=== PATIENT | male | born 1950 | race Caucasian/White ===

== ENCOUNTER 2019-09-22 03:48 | Inpatient (IN) | payer MEDICARE ==
[2019-09-22] MEDS ORDERED: Dextrose 50% Abboject 50 ML SYRINGE SLOW IVP PRN (05:23)
[2019-09-22] MEDS ORDERED: HumaLOG 300 UNITS/3 ML VIAL SC PRN ×2 (05:23)
[2019-09-22] MEDS ORDERED: Guaifenesin DM 100-10/5 ML UDCUP PO PRN (05:23)
[2019-09-22] MEDS ORDERED: Dextrose 5% in Water 1,000 ML IV PRN (05:23)
[2019-09-22] MEDS ORDERED: Acetaminophen 325 MG TAB PO PRN (05:23)
[2019-09-22] MEDS ORDERED: Ondansetron PF 4 MG/2 ML Vial IVP PRN (06:13)
[2019-09-22] MEDS ORDERED: Ondansetron ODT 4 MG TAB PO PRN (06:13)
[2019-09-22] MEDS: Sodium Chloride 0.9% 1,000 ML IV SCH ×2 (06:42→18:19)
--- NOTE | 2019-09-22 06:49 | HP ---
REASON FOR ADMISSION: Rectal bleed. HISTORY OF PRESENTING ILLNESS: The patient gives history of having nearly 5 times of cristian bleeding from rectum at home. The first one was a large amount, but the subsequent ones were very small amounts. This happened around 6:30 p.m. He finally made it to [facility], where he had another small amount of bleed and another 2 more times on arrival here at [facility]. The patient has not had any prior colonoscopy. No history of prior bleeding or peptic ulcer. He has known history of hemorrhoids. No complaints of abdominal pain, nausea, or vomiting. He has been ambulating here on the floor. No complaints of chest pain, palpitation, or fever. No exposure to coronavirus as far as he knows. PAST MEDICAL AND SURGICAL HISTORY: History of CABG done 5 years back for three-vessel disease. He has had a stent put in a year later. History of chronic atrial fibrillation on Xarelto, history of ischemic cardiomyopathy with EF of around 40%, dyslipidemia, and hypertension. CURRENT MEDICATIONS: The patient is on: 1. Amiodarone 200 mg p.o. daily. 2. Xarelto 20 mg daily. 3. Lipitor 80 mg p.o. at bedtime. 4. Carvedilol 3.125 mg twice daily. 5. Fenofibrate 160 mg daily. 6. Lasix 40 mg daily. 7. Lisinopril 5 mg daily. 8. Aspirin 81 mg daily. 9. Metformin 500 mg twice daily. 10. Gabapentin 300 mg twice daily. ALLERGIES: NO KNOWN DRUG ALLERGIES. PERSONAL HISTORY: Does not abuse alcohol or drugs. No history of smoking. FAMILY HISTORY: Mother in her 80s from natural causes. Father at the age of 56, he had cancer in his humerus from unknown primary. CODE STATUS: Full. Power of workers compensation attorney is his sister. REVIEW OF SYSTEMS: CONSTITUTIONAL: Negative for weight loss or gain, ability to conduct usual activities. SKIN: Negative for rash, itching. EYES: Negative for double vision, pain. ENT/MOUTH: Negative for nose bleeding, neck stiffness, pain, tenderness. CARDIOVASCULAR: Negative for palpitations, dyspnea on exertion, orthopnea. RESPIRATORY: Negative for shortness of breath, wheezing, cough, hemoptysis, fever or night sweats. GASTROINTESTINAL: Negative for poor appetite, abdominal pain, heartburn, nausea , vomiting, constipation, or diarrhea. GENITOURINARY: Negative for urgency, frequency, dysuria, nocturia. MUSCULOSKELETAL: Negative for pain, swelling. NEUROLOGIC/PSYCHIATRIC: Negative for anxiety, depression. ALLERGY/IMMUNOLOGIC: Negative for skin rash, bleeding tendency. PHYSICAL EXAMINATION: GENERAL: The patient is a 68-year-old male, who is currently not in any acute distress. VITAL SIGNS: Blood pressure 118/86, pulse 90 per minute, respiratory rate 20 per minute, temperature 98.9 degrees Fahrenheit, and saturating 98% on room air. NECK: Supple. No elevated JVD. HEENT: Eyes; extraocular muscles intact. Pupils reacting to light. Oral cavity, mucous membranes are dry. No exudates or congestion. CARDIOVASCULAR SYSTEM: S1 and S2 heard. Regular rhythm. RESPIRATORY SYSTEM: Air entry 1+ bilateral. No rales or rhonchi. ABDOMEN: Soft. Bowel sounds heard. No tenderness, rigidity, or guarding. EXTREMITIES: No peripheral edema or calf tenderness. VASCULAR SYSTEM: Peripheral pulses 1+ bilateral. No ischemic ulcerations or gangrene. CENTRAL NERVOUS SYSTEM: No gross focal deficits noted. The patient is alert, awake, and oriented well. PSYCHIATRIC SYSTEM: The patient's mood is euthymic. No hallucinations or delusions. LABORATORY DATA: White count of 9, hemoglobin and hematocrit of 10 and 36, MCV is 89, platelet count 247 with 63% neutrophils, 20% lymphocytes. PT and INR of 16.4 and 1.3. Serum bicarb 26, BUN 31, creatinine 1.5, and serum glucose 123. Liver enzymes are within normal limits. Albumin is 4.6. CLINICAL IMPRESSION AND PLAN: The patient will be admitted to medical floor for gastrointestinal bleed with cristian rectal bleeding. He has not had prior colonoscopy. No abdominal pain as such. It is unclear if this is diverticular bleeding. He also has history of ischemic cardiomyopathy with EF of around 40% , but has no current abdominal pain as such. He will be kept n.p.o. We will obtain H and H q.6 hourly x4. We will gently hydrate him with normal saline 70 mL per hour. Mr. Yanez will be transfused if his hemoglobin drops less than 7 g. We will obtain consultation with Dr. Sanchez, who is on-call for GI. We will hold the Xarelto for now. We will continue amiodarone, Lipitor, carvedilol, TriCor, and gabapentin for now. Metformin will be held. We will continue to closely monitor him on medical floor. Job ID: [id number] MTDD
[2019-09-22 06:50] LABS: Hemoglobin 10.1 g/dL (14.0-18.0)
[2019-09-22] MEDS: Pantoprazole 40 MG VIAL IVP SCH ×2 (08:45→20:40)
[2019-09-22] MEDS: Fenofibrate 48 MG TAB PO SCH (08:46)
[2019-09-22] MEDS: Gabapentin 300 MG CAP PO SCH ×2 (08:48→20:40)
[2019-09-22] MEDS: Amiodarone 200 MG TAB PO SCH (08:48)
[2019-09-22] MEDS: Carvedilol 3.125 MG TAB PO SCH ×2 (08:48→16:45)
[2019-09-22] MEDS ORDERED: GoLYTELY 4,000 ml Bottle PO SCH (10:45)
[2019-09-22 11:59] LABS: Hemoglobin 10.7 g/dL (14.0-18.0)
--- NOTE | 2019-09-22 15:21 | CON ---
DATE OF CONSULTATION: 09/22/2019 REASON FOR CONSULTATION: Bloody stool. HISTORY OF PRESENT ILLNESS: Mr. Yanez is a 68-year-old male from [place], [place], who presented to [facility] yesterday evening after having acute onset of rectal bleeding around 7 o'clock in the evening. The patient described the initial stool as being dark red bloody stool with some black component to it. He has subsequently had 6 episodes of bleeding at home prior to presenting to the emergency room in [place]. While in [place] [facility], he had 3 small episodes. He also had 2 additional episodes after being transferred to [facility]. He has not had any further bleeding over the last 4 hours. He denies any abdominal pain or discomfort. He otherwise is doing well from a GI standpoint with normal appetite, good oral intake without nausea or vomiting. There is no previous abdominal pain. There is no change in bowel function. The patient denies having had any antecedent gastrointestinal problem and no prior GI bleeding. He was started on Xarelto with discontinuation of Plavix 3 days ago by his assembly and packing supervisor in [place]. Currently, his hemoglobin has remained stable at 10 mg/dL. He has no active complaint. PAST MEDICAL HISTORY: 1. Coronary artery disease, status post bypass surgery 5 years ago. 2. Atrial fibrillation. 3. Hyperlipidemia. 4. Hypertension. MEDICATIONS AT HOME: Include: 1. Amiodarone. 2. Xarelto. 3. Lipitor. 4. Coreg. 5. Fenofibrate. 6. Lasix. 7. Lisinopril. 8. Aspirin. 9. Metformin. 10. Gabapentin. ALLERGIES: NONE. SOCIAL HISTORY: The patient lives by himself. He has no tobacco or alcohol usage. FAMILY HISTORY: Negative for any known GI problem, liver disease, or GI malignancy. Father had some form of bone cancer. REVIEW OF SYSTEMS: Ten-point review of systems did not show any other pertinent positives or negatives. No other reported symptoms other than aforementioned. PHYSICAL EXAMINATION: VITAL SIGNS: Temperature is 98.1, blood pressure 112/69, pulse is 79. GENERAL: He is alert, conversant, in no distress. HEENT: Anicteric sclerae, but pale. Oropharynx is clear and moist. NECK: Supple. CV: Normal S1 and S2. Regular rate and rhythm. CHEST: Breath sounds. ABDOMEN: Mildly protuberant, but soft. No tympany. No distention. He has active bowel sounds. No palpable mass or organomegaly. EXTREMITIES: No edema. LABORATORY DATA: Hemoglobin is 10.1 and hematocrit 30.7. His INR is 1.3. Creatinine 1.5. LFT is normal. ASSESSMENT: 1. A 68-year-old man with acute onset of gastrointestinal bleed, described as both hematochezia, but also some dark almost like component to it. Bleeding appears to have stopped at this point. His hemoglobin has remained stable at 10 since last night. Differential diagnosis includes diverticular bleed, less likely brisk upper gastrointestinal bleed. Other consideration includes ischemic colitis, arteriovenous malformation, and less likely any aggressive process. 2. Orqtg-io-owgqslh anemia. The patient reports he has been on iron supplement for the last 2 to 3 months by his PCP. 3. Coronary artery disease/atrial fibrillation. 4. Diabetes. 5. Hyperlipidemia. RECOMMENDATIONS: 1. Clear liquids today with a bowel prep later. 2. Diagnostic upper endoscopy and colonoscopy in a.m. 3. Continue to hold Xarelto. 4. We will continue to monitor his blood count in the meantime. 5. Further recommendation to follow pending clinical course and endoscopic findings. Job ID: [id number]
[2019-09-22 18:17] LABS: Hemoglobin 11.3 g/dL (14.0-18.0)
--- NOTE | 2019-09-22 20:17 | PDOC.HOSPP ---
- Subjective Encounter Date: 09/22/19 Encounter Time: 10:30 Subjective: pt up in bed no complains. - Objective Vital Signs & Weight: Vital Signs (12 hours) Temp Pulse Resp BP Pulse Ox 09/22/19 16:00 97.8 F 70 18 118/74 99 09/22/19 11:48 98.1 F 76 18 119/72 98 Weight Weight 216 lb I&O: 09/21/19 09/22/19 09/23/19 06:59 06:59 06:59 Intake Total 2325 Balance 2325 Result Diagrams: 09/22/19 17:57 Additional Labs: Accuchecks 09/22/19 09/22/19 16:35 11:55 POC Glucose 111 H 116 H Hospitalist ROS - Review of Systems Cardiovascular: denies: chest pain, palpitations, orthopnea, paroxysmal noc. dyspnea, edema, light headedness, other Gastrointestinal: denies: nausea, vomiting, abdominal pain, diarrhea, constipation, melena, hematochezia, other Genitourinary: denies: dysuria, frequency, incontinence, hematuria, retention, other - Medication Medications: Active Medications Generic Name Dose Route Start Last Admin Trade Name Freq PRN Reason Stop Dose Admin Amiodarone HCl 200 mg 09/22/19 09:00 09/22/19 08:48 Cordarone PO Not Given DAILY MARIO Carvedilol 3.125 mg 09/22/19 08:00 09/22/19 16:45 Coreg PO 3.125 mg BID-WM MARIO Administration Fenofibrate 48 mg 09/22/19 09:00 09/22/19 08:46 Tricor PO Not Given DAILY MARIO Gabapentin 300 mg 09/22/19 09:00 09/22/19 08:48 Neurontin PO Not Given BID MARIO Sodium Chloride 1,000 mls @ 70 mls/hr 09/22/19 05:30 09/22/19 18:19 Normal Saline 0.9% IV 1,000 mls .[id number] MARIO Administration Pantoprazole Sodium 40 mg 09/22/19 09:00 09/22/19 08:45 Protonix IVP 40 mg Q12HR MARIO Administration Polyethylene Glycol/Electrolytes 4,000 ml 09/22/19 10:45 09/22/19 13:31 Golytely PO 09/22/19 23:00 4,000 ml NOW MARIO Administration Sodium Chloride 10 ml 09/22/19 09:00 09/22/19 08:46 Flush - Normal Saline IVF 10 ml Q12HR MARIO Administration - Exam Neck: negative: supple, symmetric, no JVD, no thyromegaly, no lymphadenopathy, no carotid bruit, JVD Heart: negative: RRR, no murmur, no gallops, no rubs, normal peripheral pulses, irregular, diminshed peripheral pulses, murmur present, II/IV, III/IV Respiratory: negative: CTAB, no wheezes, no rales, no ronchi, normal chest expansion, no tachypnea, normal percussion, rales, rhonchi, tachypneic, wheezes Gastrointestinal: negative: soft, non-tender, non-distended, normal bowel sounds , no palpable masses, no hepatomegaly, no splenomegaly, no bruit, no guarding, no rigidity, tender to palpation, distended, diminished bowl sounds, voluntary guarding Hosp A/P (1) GI bleed Code(s): K92.2 - GASTROINTESTINAL HEMORRHAGE, UNSPECIFIED Status: Acute (2) Afib Code(s): I48.91 - UNSPECIFIED ATRIAL FIBRILLATION Status: Acute (3) Hypercholesteremia Code(s): E78.00 - PURE HYPERCHOLESTEROLEMIA, UNSPECIFIED Status: Acute - Plan pt's xarelto has been help. egd/colonoscopy in am. HH has been stable. No more bleeding per pt. No dvt ppx since pt is bleeding. will continue iv fluids.
[2019-09-22] MEDS: Atorvastatin Calcium 40 MG TAB PO SCH (20:40)
[2019-09-22 23:47] LABS: Hemoglobin 9.8 g/dL (14.0-18.0)
[2019-09-23 07:23] LABS: Anion Gap 10 mmol/L (10-20); BUN (Urea Nitrogen) 16 mg/dL (8.4-25.7); Calc. Creatinine Clearance 81 mL/min (70-130); Calcium 8.8 mg/dL (7.8-10.44); Carbon Dioxide 26 mmol/L (23-31); Chloride 107 mmol/L (98-107); Estimated GFR-MDRD 60; Glucose 99 mg/dL (80-115); Sodium 139 mmol/L (136-145)
--- NOTE | 2019-09-23 11:30 | RAD ---
EXAM: Chest 2 views: HISTORY: Colon cancer COMPARISON: None. FINDINGS: There is an enlarged but stable cardiomediastinal silhouette. The patient is status post sternotomy. There is no evidence of consolidation, mass, or pleural effusion. Degenerative changes are seen in the spine. IMPRESSION: No evidence of acute cardiopulmonary disease
[2019-09-23] MEDS ORDERED: Lidocaine 1% PF 5 ML VIAL ONE (11:32)
[2019-09-23] MEDS ORDERED: PROPOFOL 200 MG/20 ML VIAL ONE (11:32)
[2019-09-23] MEDS: Amiodarone 200 MG TAB PO SCH (11:58)
[2019-09-23] MEDS: Gabapentin 300 MG CAP PO SCH ×2 (11:58→20:50)
[2019-09-23] MEDS: Carvedilol 3.125 MG TAB PO SCH ×2 (11:58→18:28)
[2019-09-23] MEDS: Fenofibrate 48 MG TAB PO SCH (11:58)
[2019-09-23] MEDS: Sodium Chloride 0.9% 1,000 ML IV SCH ×2 (11:58→23:53)
[2019-09-23] MEDS: Pantoprazole 40 MG VIAL IVP SCH (12:06)
--- NOTE | 2019-09-23 12:51 | OP ---
DATE OF PROCEDURE: 09/22/2019 PREPROCEDURE DIAGNOSES: 1. Rectal bleeding after just recently starting on anticoagulation for atrial fibrillation. 2. History of heart failure with ejection fraction estimated at 40% per old records. 3. Coronary artery disease. No active symptoms. PROCEDURES PERFORMED: EGD and colonoscopy with biopsy, polypectomy, and tattoo placement. POSTPROCEDURE DIAGNOSES: 1. Normal EGD. 2. Colonoscopy with near circumferential mass in the distal sigmoid colon at about 20 cm from the anorectal verge. Multiple biopsies obtained. This is a bleeding site. No active bleeding at present. 3. Polyp just distal to this rectal mass at about 15 cm, just at the rectosigmoid junction, partially removed. This may be a polyp of high-grade dysplasia, but not completely removed. Tattoos were placed distal to this polyp, so that both polyp and the mass can be resected at the time of surgery. ANESTHESIA: TIVA. PROCEDURE IN DETAIL: After the patient was informed of the risks, benefits, and possible complications of endoscopy including perforation, reaction to medication, and aspiration, informed consent was obtained, the patient was brought to the endoscopy suite, where the patient was sedated in gradual fashion. Once he was comfortable, a bite-block was placed inside the orifice. The endoscope was advanced through the esophagus, stomach into second and third portions of the duodenum. The esophagus was normal. Stomach was normal, and forward and retroflexed views in the duodenum were normal. Retroflexed views were normal. The scope was removed. The patient was turned to the room. A rectal exam was performed. There was no evidence of blood in the rectal exam. The endoscope was through the anal canal, colon, into the cecum, which was identified by ileocecal valve and appendiceal orifice. There was some scant blood in the sigmoid colon. The scope was then slowly removed with good visualization of mucosa. There was a mass, near circumferential about 80% of the lumen wall. It was nonobstructing. This was in the sigmoid colon at 20 cm, which is about 5 cm above the rectosigmoid junction. Multiple biopsies were obtained. Just distal to this, at about 15 cm, which was right at the rectosigmoid junction, there was a 1.5 cm polyp, which was flat may be malignant, was partially removed, was not completely removed. Tattoos were placed just distal to this. Retroflexed views were normal. The scope was removed. The patient tolerated the procedure well. No complications. RECOMMENDATIONS: CT abdomen and pelvis, staging. Chest x-ray, PA and lateral, staging. CEA. with Dr. Etienne regarding possible cardiac evaluation before any surgical intervention. We will reach out to General Surgery to see if anyone is available to consider a laparoscopic sigmoid resection based on his cardiac disease status. Job ID: [id number]
--- NOTE | 2019-09-23 13:30 | PDOC.HOSPP ---
- Subjective Encounter Date: 09/23/19 Encounter Time: 11:00 Subjective: The patient states he has experienced no further episodes of rectal bleeding. He states he had a bypass many years ago and that's when he found out he had a heart attack. He was also recently told he had afib, and just started taking xarelto a few days ago when the bleeding started. He denies chest pain or shortness of breath while ambulating. He denies orthopnea - Objective Vital Signs & Weight: Vital Signs (12 hours) Temp Pulse Resp BP Pulse Ox 09/23/19 11:37 97.4 F L 67 17 133/82 98 09/23/19 08:00 96 09/23/19 07:40 97.9 F 72 17 112/64 96 09/23/19 04:59 97.3 F L 72 18 121/75 96 Weight Weight 216 lb I&O: 09/22/19 09/23/19 09/24/19 06:59 06:59 06:59 Intake Total 3665 Balance 3665 Result Diagrams: 09/22/19 23:38 09/23/19 06:38 Additional Labs: Accuchecks 09/23/19 09/22/19 09/22/19 11:45 20:38 16:35 POC Glucose 110 116 H 111 H Hospitalist ROS - Review of Systems Constitutional: denies: fever, chills - Medication Medications: Active Medications Generic Name Dose Route Start Last Admin Trade Name Freq PRN Reason Stop Dose Admin Amiodarone HCl 200 mg 09/22/19 09:00 09/23/19 11:58 Cordarone PO 200 mg DAILY MARIO Administration Atorvastatin Calcium 80 mg 09/22/19 21:00 09/22/19 20:40 Lipitor PO 80 mg HS MARIO Administration Carvedilol 3.125 mg 09/22/19 08:00 09/23/19 11:58 Coreg PO 3.125 mg BID-WM MARIO Administration Fenofibrate 48 mg 09/22/19 09:00 09/23/19 11:58 Tricor PO 48 mg DAILY MARIO Administration Gabapentin 300 mg 09/22/19 09:00 09/23/19 11:58 Neurontin PO 300 mg BID MARIO Administration Sodium Chloride 1,000 mls @ 70 mls/hr 09/22/19 05:30 09/23/19 11:58 Normal Saline 0.9% IV 1,000 mls .[id number] MARIO Administration Sodium Chloride 10 ml 09/22/19 09:00 09/23/19 11:58 Flush - Normal Saline IVF Not Given Q12HR MARIO - Exam General Appearance: NAD, awake alert General - other findings: obese Eye: PERRL, anicteric sclera ENT: normocephalic atraumatic, no oropharyngeal lesions Neck: supple, no JVD Heart: RRR, no murmur, no gallops, no rubs Respiratory: CTAB, no wheezes, no rales, no ronchi Gastrointestinal: soft, non-tender, non-distended, normal bowel sounds Extremities: no cyanosis, no clubbing, no edema Skin: normal turgor, no lesions, no rashes Neurological: cranial nerve grossly intact, normal sensation to touch, no focal deficits, no new deficit Musculoskeletal: normal tone, normal strength, no muscle wasting Psychiatric: normal affect, normal behavior, A&O x 3, oriented to person Hosp A/P - Plan EGD/colonoscopy: normal EGD. Colonoscopy with near circumferential mass in the distal sigmoid colon at about 20 cm from the anorectal verge. Polyp distal to the rectal mass at about 15 cm, partially removed. Polyp of high grade dysplasia is possible This is a 68 year old male who presented with rectal bleeding, s/p EGD and colonoscpy showing a 20 cm colon mass Acute blood loss anemia secondary to lower GI bleed from colorectal mass - 15 cm rectal mass noted. Biopsies were obtained - Hb has remained stable - surgical consult placed for laparascopic resection CAD s/p bypass - aspirin held for now, will resume. Continue statin - cardiology consulted for clearance for surgery - he has no active cardiac symptoms at this time Afib - on amiodarone - xarelto on hold as well Type II diabetes - metformin on hold - blood sugars contorlled DVT prophylaxis: ambulation Code status: full code
--- NOTE | 2019-09-23 14:28 | CT ---
CT ABDOMEN WITH CONTRAST CT PELVIS WITH CONTRAST: DATE: 09/23/2019. 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 CT for staging. COMPARISON: None. TECHNIQUE: IV injection of iodinated contrast media: 100 mL [id number]. Oral contrast media: Redicat. FINDINGS: There is herniation of the anterior portion of the urinary bladder into the right inguinal canal. Th ere is no bowel within this inguinal hernia. Diffuse mural thickening of the urinary bladder. This is nonspecific, and could be chronic or acute. There is asymmetrical mural thickening of the rectum. The sigmoid colon is redundant. No obvious ne oplastic tumor breakthrough external to the serosa is visualized regarding the colon. No colonic div erticulitis. Normal appendix, bilateral kidneys, and adrenals. No major pathology of pancreas or spleen. Diffuse ly slightly low hepatic attenuation suggests fatty liver. No evidence of hepatic metastasis. Cholec ystectomy clips in the gallbladder fossa. No small bowel dilation. No evidence of significant lymph adenopathy within the abdominal cavity or pelvic cavity. Heavy atherosclerotic calcification of the abdominal aorta, celiac artery, superior mesenteric artery, bilateral renal arteries, bilateral commo n iliac arteries, external iliac arteries, and internal iliac arteries. No abdominal aortic aneurysm . Nonspecific multifocal, patchy mild ground-glass densities in the bilateral lower lung zones, righ t greater than left. Uncertain whether these are chronic or acute. No pleural effusion. Diffuse rosanna mbar spondylosis. Incidental finding of punctate 2 mm calculus right renal lower pole. Another punc cross 2 mm calculus at left renal mid pole. IMPRESSION: 1. Right inguinal hernia consisting of a portion of the urinary bladder, but no bowel. 2. No evidence of metastatic disease. 3. Extensive, severe atherosclerotic disease. 4. Status post cholecystectomy. 5. Mild bilateral nephrolithiasis. 6. Other findings as described above. LUIS A Leach POS: WILLIAM
[2019-09-23] MEDS ORDERED: Iopamidol-370 76% 500 ML 1 ML ONE (15:47)
[2019-09-23] MEDS: Erythromycin Base 250 MG TAB PO SCH ×2 (18:28→20:50)
[2019-09-23] MEDS: Neomycin 500 mg Tablet PO SCH ×2 (18:29→23:52)
--- NOTE | 2019-09-23 18:54 | CON ---
DATE OF CONSULTATION: 09/23/2019 CONSULTING PHYSICIAN: Clark Good MD REASON FOR CONSULTATION: Suspected colon cancer. HISTORY OF PRESENT ILLNESS: The patient is a 68-year-old white male. He was recently diagnosed with atrial fibrillation, for which he was started on Xarelto. He has previously been taking Plavix. Within about 3 days of starting Xarelto, he noted rectal bleeding. He presented to the hospital late in the evening on September 20 for further evaluation of this. He was noted to have mild anemia with a hemoglobin of 10.1. This has been relatively stable over the subsequent days. He had a bowel prep yesterday and colonoscopy today. At the time of colonoscopy, he was recognized to have a near circumferential mass in the distal sigmoid colon at about 20 cm from the anorectal verge. There was noted to be a polyp just distal to this at about 15 cm. The pathology is pending in regard to this. The polyp was tattooed. The patient denies any GI symptoms. He denies any recent weight loss, bowel habit changes, abdominal or rectal pain. He notes that he never had a previous colonoscopy. Subsequent CEA level was obtained, which is 1.5. CT scan was obtained today also and although this is not yet read by Radiology, does not appear to show any evidence of metastatic disease. PAST MEDICAL HISTORY: 1. Atrial fibrillation. 2. Hypercholesterolemia. 3. Congestive heart failure. 4. Hypertension. 5. Hyperlipidemia. 6. Diabetes mellitus. PAST SURGICAL HISTORY: 1. He had a laparoscopic cholecystectomy performed about 5 years ago. 2. Three-vessel coronary artery bypass graft, also five years ago. CURRENT MEDICATIONS: 1. Amiodarone. 2. Xarelto. 3. Lipitor. 4. Carvedilol. 5. Fenofibrate. 6. Lasix. 7. Lisinopril. 8. Aspirin. 9. Metformin. 10. Gabapentin. ALLERGIES: NO KNOWN DRUG ALLERGIES. PERSONAL AND SOCIAL HISTORY: He is single with no children. He lives by himself in [place], where he moved when he retired. He denies tobacco use. He has not drank alcohol in long time. His primary care physician and mill labor supervisor are both in [facility] near the [facility]. REVIEW OF SYSTEMS: Ten-system review was obtained is otherwise negative. FAMILY HISTORY: Noncontributory. PHYSICAL EXAMINATION: VITAL SIGNS: He is afebrile, pulse is 67, and blood pressure 133/82. GENERAL: Well-developed, well-nourished, pleasant white male resting in bed, in no acute distress. He is about 5 feet 8 inches tall and weighs about 215 pounds. HEAD, EYES, EARS, NOSE, AND THROAT: Unremarkable. NECK: Supple without mass or tenderness. LUNGS: Clear to auscultation throughout. CARDIAC: Appears to be irregularly irregular consistent with atrial fibrillation. ABDOMEN: Soft, nontender, and nondistended without palpable mass or focal discomfort. EXTREMITIES: Unremarkable. RECTAL: Deferred at this time as he had a colonoscopy earlier today. LABORATORY DATA: As mentioned above, his hemoglobin is 9.8 and hematocrit 30.2. Basic metabolic panel is normal. Creatinine is 1.2. CEA is normal at 1.58. ASSESSMENT AND PLAN: The patient with a bleeding near circumferential colon cancer at the rectosigmoid junction. Plan is laparoscopic low anterior resection. He of course will require cardiac clearance preoperatively. Cardiology has already been consulted in regard to this and I believe Dr. Peacock has seen the patient. I suspect he will require further evaluation of this before cardiac clearance could be obtained and I would therefore tentatively plan on proceeding with his colon surgery at a later date rather than during this admission, but this will be up to Dr. Peacock. I have discussed the operation in detail with the patient as well as potential risks. He understands and is enthusiastic to proceed. He will be scheduled for the surgery as soon as is deemed satisfactory by Cardiology. Job ID: [id number]
--- NOTE | 2019-09-23 19:57 | CON ---
DATE OF CONSULTATION: HISTORY OF PRESENT ILLNESS: Fadi Yanez is a 68-year-old white male, admitted with lower gastrointestinal bleeding. Approximately five years ago, he underwent CABG x3 in [place]. The surgeon told him that he had a heart attack previously; however , he never has been hospitalized in the past for myocardial infarction. Approximately, one year later, he had stents placed in a vessel that could not be bypassed. He denies any chest discomfort or shortness of breath. He does not exercise regularly due to his feet hurting when he walks on uneven surfaces. He apparently went to see his anesthesia assistant, Dr. Brodie Haji in [facility] on September 15. He apparently was noted to be in atrial fibrillation, which was a new finding for him. He was on aspirin and Plavix and the Plavix was discontinued. He was placed on Xarelto 20 mg daily and amiodarone 200 mg daily. He was to return 2 to 3 weeks later and consideration of electrical cardioversion at that time. Mr. Yanez denies ever having any palpitations, lightheadedness, or dizziness. After starting on the Xarelto for 2 to 3 days, he noted that his bowel movements turned dark. He then had an episode of bright red blood per rectum, went to the emergency room in [place] and was transferred here for further evaluation. He has undergone colonoscopy and it looks as if he has colon malignancy and will need to undergo resection of this. PAST MEDICAL HISTORY: Hypertension, hyperlipidemia, diabetes, new onset atrial fibrillation, and coronary artery disease. MEDICATIONS: 1. Xarelto 20 mg daily. 2. Amiodarone 200 mg daily. 3. Aspirin 81 daily. 4. Atorvastatin 80 at bedtime. 5. Carvedilol 3.125 b.i.d. 6. B12 of 100 mcg daily. 7. Fenofibrate 160 daily. 8. Ferrous sulfate 325 daily. 9. Furosemide 40 daily. 10. Gabapentin 300 t.i.d. 11. Lisinopril 5 mg daily. 12. Metformin 500 mg b.i.d. ALLERGIES: NONE. SOCIAL HISTORY: He has never smoked. He does not drink. FAMILY HISTORY: Negative for coronary artery disease, myocardial infarction, or bypass surgery. REVIEW OF SYSTEMS: A 10-point review of systems is unremarkable except as noted above. PHYSICAL EXAMINATION: VITAL SIGNS: 133/82, pulse of 67 and irregularly irregular. HEENT: PERRL. NECK: Supple. CHEST: Clear. CARDIAC: S1 and S2 normal without any S3, S4, or murmurs. Carotid upstroke is normal without bruits. ABDOMEN: Obese. Normal bowel sounds. No tenderness. EXTREMITIES: Revealed trace pretibial edema. NEUROLOGIC: Grossly intact. SKIN: Warm and dry. LABORATORY DATA: EKG reveals atrial fibrillation with rate of 74 per minute with poor R-wave progression consistent with anteroseptal infarction. Hemoglobin 9.8 , hematocrit 30.2, white count 9200, platelets 247,000. INR 1.3. Sodium 139, potassium 4.0, chloride 107, carbon dioxide 26, BUN 16, and creatinine 1.21. CEA is normal at 1.58. IMPRESSION: 1. Lower gastrointestinal bleed with finding of distal sigmoid mass, probable colon carcinoma. 2. History of coronary artery bypass graft. 3. History of coronary artery stent placement. 4. Hypertension. 5. Diabetes. 6. Hypercholesterolemia. 7. New onset atrial fibrillation, first recognized on September 15. PLAN: Echocardiogram will be performed to assess left ventricular function. From some of the notes in the hospital record, he apparently has an ejection fraction of around 40%. Mr. Yanez is asymptomatic from a cardiac standpoint. With ongoing gastrointestinal bleeding, certainly the colon cancer needs to be removed. I do not feel that there is anything that can be done from a cardiac standpoint at this time to further reduce his [id number] risk. Certainly, Xarelto needs to be held until the presumed colon cancer has been removed. Consideration could be given to cardioversion at a later time once he can be anticoagulated. However, at the present time, I would treat him with rate control alone and this appears to be well controlled with carvedilol and Amiodarone. I would proceed with colectomy once further evaluation has been completed. Job ID: [id number] [facility]
[2019-09-23] MEDS: Atorvastatin Calcium 40 MG TAB PO SCH (20:49)
[2019-09-24 04:44] LABS: Hemoglobin 8.9 g/dL (14.0-18.0); Mean Corpuscular HGB CONC 32.3 g/dL (32.0-36.0); Mean Corpuscular Hemoglobin 28.5 pg (27.0-31.0); Mean Corpuscular Volume 88.3 fL (78.0-98.0); Mean Platelet Volume 11.3 fL (7.4-10.4); Platelet Count 154 thou/uL (130-400); RBC Distribution Width 21.2 % (11.5-14.5); White Blood Cell (WBC) Count 5.1 thou/uL (4.8-10.8)
[2019-09-24 05:07] LABS: Cardiac Risk 5.8 (Less than 4.5)
[2019-09-24] MEDS ORDERED: Fentanyl 100 MCG/2 ML VIAL ONE ×3 (06:29→12:02)
[2019-09-24] MEDS ORDERED: Dexamethasone 4 mg/ml Vial ONE ×2 (06:29)
[2019-09-24] MEDS ORDERED: Bupivacaine 0.25% HCL 30 ML VIAL ONE (06:29)
[2019-09-24] MEDS ORDERED: Midazolam HCl 2 mg/2 ml Vial ONE (06:29)
[2019-09-24] MEDS ORDERED: Lidocaine 1% w/Epinephrine 1:100K 20 ML VIAL ONE (06:29)
[2019-09-24] MEDS: Neomycin 500 mg Tablet PO SCH ×2 (07:42→14:11)
[2019-09-24] MEDS ORDERED: Famotidine/PF 20 mg/2ml Vial ONE (07:48)
[2019-09-24] MEDS ORDERED: Scopolamine 1.5 mg/72 hour Patch ONE (08:22)
[2019-09-24] MEDS ORDERED: Promethazine HCl 25 MG/ML VIAL SLOW IVP PRN (10:16)
[2019-09-24] MEDS ORDERED: HYDROmorphone 2 MG/ML VIAL SLOW IVP PRN (10:16)
[2019-09-24] MEDS ORDERED: Meperidine HCl/PF 25 MG/ML VIAL SLOW IVP PRN (10:16)
[2019-09-24] MEDS ORDERED: Promethazine HCl 25 MG/ML VIAL IM PRN ×2 (10:16→13:13)
[2019-09-24] MEDS ORDERED: PROPOFOL 200 MG/20 ML VIAL ONE (10:37)
[2019-09-24] MEDS ORDERED: Bupivacaine HCl 0.5%/Epinephrine 1:200,000/PF 30 ml Vial ONE (10:37)
[2019-09-24] MEDS ORDERED: Rocuronium Bromide 10 MG/ML (10ML VIAL) ONE (10:37)
[2019-09-24] MEDS ORDERED: Ondansetron PF 4 MG/2 ML Vial ONE (10:37)
[2019-09-24] MEDS ORDERED: Glycopyrrolate 0.2 MG/ML 5 ML SYRINGE ONE (10:37)
[2019-09-24] MEDS ORDERED: Ketorolac Tromethamine 30 MG/ML VIAL ONE (10:37)
[2019-09-24] MEDS ORDERED: Lidocaine 1% PF 5 ML VIAL ONE (10:37)
--- NOTE | 2019-09-24 12:09 | PRG ---
DATE OF SERVICE: 09/24/2019 SUBJECTIVE: Mr. Yanez underwent sigmoid colon resection today laparoscopically and did well with surgery. He is recovering in PACU now, doing well. PHYSICAL EXAMINATION: VITAL SIGNS: Temperature 97.6, pulse 80, blood pressure 101/59. GENERAL: He is sleepy post anesthesia. He is in no acute distress. LUNGS: Clear to auscultation bilaterally. HEART: Regular rate and rhythm. ABDOMEN: Soft. EXTREMITIES: No lower extremity edema. LABORATORY DATA: White blood cell count 5.1, hemoglobin 8.9, platelets 154. IMPRESSION: Sigmoid colon cancer status post surgical resection today. Pathology is pending. RECOMMENDATIONS: 1. Postoperative care per General Surgery. 2. He will need surveillance colonoscopy in 1 year. 3. He also had a large polyp and the rectosigmoid junction and will need to follow up on the surgical specimen to verify both polyp and the mass were resected. 4. Regarding Oncology involvement will depend on his stage. 5. I will sign off for now. The patient can follow up with Dr. Good in the office in a month. Job ID: [id number]
[2019-09-24] MEDS ORDERED: cefOXitin Sodium/Dextrose,Iso 2 GM in Premix Bag 1 BAG IVPB SCH (13:00)
[2019-09-24] MEDS ORDERED: Morphine 4 MG/ML VIAL SLOW IVP PRN (13:13)
[2019-09-24] MEDS ORDERED: hydrALAZINE 20 MG/ML VIAL SLOW IVP PRN (13:13)
[2019-09-24] MEDS ORDERED: Ondansetron PF 4 MG/2 ML Vial IVP PRN (13:13)
[2019-09-24] MEDS ORDERED: Morphine 2 MG/ML SYRINGE SLOW IVP PRN (13:13)
[2019-09-24] MEDS ORDERED: Ketorolac Tromethamine 30 MG/ML VIAL IVP SCH (13:15)
[2019-09-24] MEDS ORDERED: Scopolamine 1.5 mg/72 hour Patch TOP SCH (13:15)
[2019-09-24] MEDS: Gabapentin 300 MG CAP PO SCH ×2 (13:58→20:21)
[2019-09-24] MEDS: Carvedilol 3.125 MG TAB PO SCH ×2 (13:58→17:36)
[2019-09-24] MEDS: Amiodarone 200 MG TAB PO SCH (14:04)
[2019-09-24] MEDS: Fenofibrate 48 MG TAB PO SCH (14:04)
[2019-09-24] MEDS: Sodium Chloride 0.9% 1,000 ML IV SCH ×2 (14:05→23:38)
[2019-09-24] MEDS: Acetaminophen 500 MG TAB PO SCH (17:35)
[2019-09-24] MEDS: Ketorolac Tromethamine 30 MG/ML VIAL IVP SCH (17:36)
--- NOTE | 2019-09-24 17:46 | EKG ---
Test Reason : Blood Pressure : / mmHG Vent. Rate : 074 BPM Atrial Rate : 092 BPM P-R Int : 000 ms QRS Dur : 096 ms QT Int : 404 ms P-R-T Axes : 000 030 195 degrees QTc Int : 448 ms Atrial fibrillation Anteroseptal infarct , age undetermined Abnormal ECG No previous ECGs available Confirmed by DR. Pinky HORTON ([id number]) on 09/24/2019 5:46:33 PM Referred By: MEGAN Confirmed By:DR. Pinky HORTON
--- NOTE | 2019-09-24 19:15 | PDOC.HOSPP ---
- Subjective Encounter Date: 09/24/19 Encounter Time: 19:14 Subjective: The patient states that he is doing well. He had laparoscopic resection and was told he had an ulcer . He denies abd pain. He currently has spring catheter in THe patient is having clear liquid broth but states it was too salty and jello has too much sugar - Objective Vital Signs & Weight: Vital Signs (12 hours) Temp Pulse Resp BP Pulse Ox 09/24/19 16:00 98.9 F 96 16 104/56 L 83 L 09/24/19 13:10 96.8 F L 96 20 125/83 100 Weight Weight 216 lb I&O: 09/23/19 09/24/19 09/25/19 06:59 06:59 06:59 Intake Total 3665 Balance 3665 Result Diagrams: 09/24/19 03:57 09/23/19 06:38 Additional Labs: Accuchecks 09/24/19 09/24/19 09/24/19 16:48 11:22 06:04 POC Glucose 177 H 164 H 119 H 09/23/19 20:17 POC Glucose 190 H Hospitalist ROS - Review of Systems Constitutional: denies: fever, chills - Medication Medications: Active Medications Generic Name Dose Route Start Last Admin Trade Name Freq PRN Reason Stop Dose Admin Acetaminophen 1,000 mg 09/24/19 18:00 09/24/19 17:35 Tylenol PO 1,000 mg Q6HR MARIO Administration Amiodarone HCl 200 mg 09/22/19 09:00 09/24/19 14:04 Cordarone PO 200 mg DAILY MARIO Administration Atorvastatin Calcium 80 mg 09/22/19 21:00 09/23/19 20:49 Lipitor PO 80 mg HS MARIO Administration Carvedilol 3.125 mg 09/22/19 08:00 09/24/19 17:36 Coreg PO 3.125 mg BID-WM MARIO Administration Fenofibrate 48 mg 09/22/19 09:00 09/24/19 14:04 Tricor PO 48 mg DAILY MARIO Administration Gabapentin 300 mg 09/22/19 09:00 09/24/19 13:58 Neurontin PO Not Given BID MARIO Sodium Chloride 1,000 mls @ 120 mls/hr 09/24/19 13:13 09/24/19 14:05 Normal Saline 0.9% IV 1,000 mls .Q8H20M MARIO Administration Ketorolac Tromethamine 15 mg 09/24/19 18:00 09/24/19 17:36 Toradol IVP 09/27/19 18:01 15 mg Q6HR MARIO Administration Sodium Chloride 10 ml 09/22/19 09:00 09/24/19 13:58 Flush - Normal Saline IVF Not Given Q12HR MARIO - Exam General Appearance: NAD, awake alert Eye: PERRL, anicteric sclera ENT: normocephalic atraumatic, no oropharyngeal lesions Neck: no JVD Heart: RRR, no murmur, no gallops, no rubs Respiratory: CTAB, no wheezes, no rales, no ronchi Gastrointestinal: soft, non-tender, non-distended Gastrointestinal - other findings: surgical incision LLQ, does not look infected Extremities: no cyanosis, no clubbing, no edema Hosp A/P - Plan EGD/colonoscopy: normal EGD. Colonoscopy with near circumferential mass in the distal sigmoid colon at about 20 cm from the anorectal verge. Polyp distal to the rectal mass at about 15 cm, partially removed. Polyp of high grade dysplasia is possible This is a 68 year old male who presented with rectal bleeding, s/p EGD and colonoscpy showing a 20 cm colon mass Acute blood loss anemia secondary to lower GI bleed from colorectal mass - 15 cm rectal mass noted. Biopsies were obtained - Hb has remained stable - patient has had surgical resection of mass today with biopsies taken CAD s/p bypass - aspirin held for now, will resume. Continue statin - cardiology consulted for clearance for surgery - he has no active cardiac symptoms at this time Afib - on amiodarone - xarelto on hold as well Type II diabetes - metformin on hold - blood sugars controlled Catheters: spring catheter in, plan to remove tomorrow with voiding trial DVT prophylaxis: ambulation Code status: full code
[2019-09-24] MEDS ORDERED: Aspirin 81 mg Enteric Coated Tablet PO SCH (19:30)
[2019-09-24] MEDS: Enoxaparin Sodium 40 MG/0.4 ML SYRINGE SC SCH (20:21)
[2019-09-24] MEDS: Atorvastatin Calcium 40 MG TAB PO SCH (20:21)
[2019-09-24] MEDS: Famotidine/PF 20 mg/2ml Vial SLOW IVP SCH (20:22)
[2019-09-25] MEDS: Ketorolac Tromethamine 30 MG/ML VIAL IVP SCH ×4 (00:27→17:58)
[2019-09-25] MEDS: Acetaminophen 500 MG TAB PO SCH ×4 (00:27→17:54)
--- NOTE | 2019-09-25 00:28 | OP ---
DATE OF PROCEDURE: 09/24/2019 PREOPERATIVE DIAGNOSIS: Rectosigmoid cancer, upper rectal polyp. POSTOPERATIVE DIAGNOSIS: Rectosigmoid cancer, upper rectal polyp. PROCEDURE PERFORMED: Laparoscopic, hand assisted low anterior resection. ANESTHESIA: General endotracheal. INDICATIONS: The patient is a 68-year-old moderately obese white male. He was recently started on Xarelto and developed rectal bleeding. Colonoscopy revealed a nearly circumferential mass at the rectosigmoid junction consistent with a colon cancer. Distal to this was a concerning polyp that was partially removed and biopsied and tattooed. The patient has undergone mechanical and antibiotic bowel prep and is taken to the operating at this time for laparoscopic low anterior resection. He has been cleared for this procedure by Cardiology. DESCRIPTION OF OPERATION: Informed consent was obtained. The patient was taken to the operating room, where general endotracheal anesthesia obtained with the patient in supine position. A Cortez catheter was placed, the patient was placed into dorsal lithotomy. Abdomen was prepped with ChloraPrep and draped in sterile fashion. A TAP block had been placed preoperatively by Anesthesia. The each incision was additionally anesthetized using a mixture of 0.25% Marcaine mixed with 1% lidocaine with epinephrine. A 5 mm supraumbilical incision was created through which a Veress needle was passed into the peritoneal cavity and pneumoperitoneum was established using carbon dioxide up to pressure of 15 mmHg. A 5 mm trocar port was passed through this same incision. Laparoscopic camera was passed this port. Under direct vision, a 12 mm right lower quadrant port was placed. A site was selected for the colon extraction and at this location in the left lower quadrant, an 8 cm oblique incision was created. Dissection was carried through skin and subcutaneous tissue, and muscle splitting was used to gain access into the abdominal cavity. The Tacos wound retractor followed by the GelAlber was placed and left hand was passed into the abdominal cavity. The patient was noted to have an extremely redundant sigmoid colon. There were adhesions between the proximal sigmoid colon and the pelvis and the left abdominal wall. These adhesions were mobilized using LigaSure dissection. Additionally, the lower half of the descending colon was mobilized from its lateral attachments by incising the white line of Toldt. The patient was placed into fairly severe Trendelenburg position. The small bowel was swept out of the pelvis. There were no pelvic adhesions. The peritoneum was incised on the right lateral aspect of the rectosigmoid mesentery and dissection was carried distally down into the pelvis. The patient had a deep sulcus at the inferior aspect of the pelvis. The peritoneum was incised circumferentially at the level of the inlet. Attention was then returned to the sacral promontory. Dissection was carefully carried through the mesentery in an avascular plane. I was able to identify the ureter on the left lateral aspect and this was swept posteriorly and kept free from harm. The peritoneum was then incised on the left side of the mesentery and carried down to the pelvic inlet as well. A careful total mesenteric excision was then performed in by sharply dissecting the avascular plane between the mesenteric envelope and the presacral tissue. As dissection was carried inferiorly, I was able to visualize and palpate the area of the malignancy. This was initially down within the pelvic sulcus. As the rectosigmoid colon was mobilized, I was able to withdraw this to try a visible and palpable area within the lower pelvis. As I dissected further, I was able to identify the blue dye from the tattoo distal to the visible and palpable malignancy. With the distal colon and rectum fully mobilized, I identified an area of planned transection at approximately the level of the tattoo. The mesentery was carefully dissected and the bowel wall was skeletonized circumferentially. The rectum was divided at this level using two fires of the Endo MARK stapler using a blue load. The colon was then withdrawn out of the pelvis. I carefully identified an area of the inferior descending colon that would reach down for a tension-free anastomosis. This was marked with the LigaSure and the colon was then delivered through the Tacos wound retractor extracorporeally. The colon at the level of the planned transection was dissected circumferentially. The mesentery was taken down from this point distally including the takeoff of the inferior mesenteric artery until I reach the area that had been mobilized off the sacral promontory. Towels were placed and segregated instruments were used. A colotomy was created. The colon was assessed for size with the EEA sizers and I selected the 33 mm EEA stapler. The anvil was obtained and passed through the enterotomy and brought out several centimeter proximally, antimesenteric. The enterotomy was then excluded in continuity with the section to be resected using a final firing of the Endo-MARK stapler. The segment of colon was passed off the field along with all the instruments that had been utilized while the bowel was opened. Gloves were changed. The anvil was then cleansed with Betadine gauze. A pursestring suture was placed around the base of the anvil using 2-0 Prolene. The colon was dropped back down the abdominal cavity. A pneumoperitoneum was re-established. Careful dilatation of the anus up to the level of the staple line was carried out under direct visualization and palpation. The 33 mm EEA stapler was advanced up to the staple line and the spike was advanced through the central port of the staple line. This was then affixed to the anvil. The two segments were anastomosed by firing the EEA stapler. The donuts were inspected and found to be of excellent quality. The distal donut was submitted for specimen pathology. The anastomosis was checked for integrity with an air leak test while the anastomosis was under water. There was no evidence of air leak. The fascia at the 12 mm port site was closed with 0 Vicryl suture using a GraNee needle. The remaining 5 mm port was removed under vision. All ports, instruments, and the wound retractor were removed. All laparoscopic instrumentation was passed off the field. The abdominal wall was cleansed with saline. Gowns and gloves were changed. The closing tray was utilized. The abdomen was draped with clean towels. The fascial defect at the left lower quadrant incision was closed using running suture of #1 PDS in 2 layers. Additional local anesthetic was infiltrated between the two fascial layers. The wound was then copiously irrigated with 1.5 L of saline. The remainder of the wound was closed in layers with 3-0 and 4-0 Monocryl. The two port sites were closed with 4-0 Monocryl suture. Dermabond was placed externally. There were no complications. The patient tolerated the procedure well. Blood loss had been negligible and estimated at about 20 mL. The patient was taken to the recovery room in stable condition. Job ID: [id number]
[2019-09-25 04:13] LABS: #Lymphocytes 0.4 thou/uL (1.20-3.40); #Monocytes 0.5 thou/uL (0.11-0.59); #Neutrophils 8.4 thou/uL (1.40-6.50); %Basophils 0.1 % (0.0-1.0); %Eosinophils 0.1 % (0.0-10.0); %Lymphocytes 4.6 % (21.0-51.0); %Monocytes 5.8 % (0.0-10.0); %Neutrophils 89.5 % (42.0-75.0); Hemoglobin 8.4 g/dL (14.0-18.0); Mean Corpuscular HGB CONC 32.4 g/dL (32.0-36.0); Mean Corpuscular Hemoglobin 29.1 pg (27.0-31.0); Mean Corpuscular Volume 89.6 fL (78.0-98.0); Mean Platelet Volume 11.2 fL (7.4-10.4); Platelet Count 139 thou/uL (130-400); RBC Distribution Width 20.9 % (11.5-14.5); Red Blood Cell (RBC) Count 2.87 mill/uL (4.70-6.10); White Blood Cell (WBC) Count 9.4 thou/uL (4.8-10.8)
[2019-09-25 04:39] LABS: Anion Gap 10 mmol/L (10-20); BUN (Urea Nitrogen) 13 mg/dL (8.4-25.7); Calc. Creatinine Clearance 77 mL/min (70-130); Calcium 7.6 mg/dL (7.8-10.44); Carbon Dioxide 19 mmol/L (23-31); Chloride 110 mmol/L (98-107); Estimated GFR-MDRD 56; Glucose 164 mg/dL (80-115); Potassium 4.3 mmol/L (3.5-5.1); Sodium 135 mmol/L (136-145)
[2019-09-25] MEDS: Sodium Chloride 0.9% 1,000 ML IV SCH (07:53)
[2019-09-25] MEDS: Carvedilol 3.125 MG TAB PO SCH ×2 (07:54→17:57)
[2019-09-25] MEDS: Fenofibrate 48 MG TAB PO SCH (07:54)
[2019-09-25] MEDS: Gabapentin 300 MG CAP PO SCH ×2 (07:54→20:37)
[2019-09-25] MEDS: Aspirin 81 mg Enteric Coated Tablet PO SCH (07:55)
[2019-09-25] MEDS: Amiodarone 200 MG TAB PO SCH (07:55)
[2019-09-25] MEDS: Famotidine/PF 20 mg/2ml Vial SLOW IVP SCH ×2 (07:55→20:37)
[2019-09-25] MEDS ORDERED: HYDROcodone/Acetaminophen 7.5/325 mg Tablet PO PRN ×2 (08:18)
--- NOTE | 2019-09-25 14:24 | PDOC.HOSPP ---
- Subjective Encounter Date: 09/25/19 Encounter Time: 09:30 Subjective: The patient has no complaints. He has some suprapubic discomfort from spring catheter, was advised by surgeon to leave it in this morning per patient. His urine does appear to be dark red/brown The patient denies nausea/vomiting. Rectal polyp biopsy positive for tubular adenoma, intestine mass positive for invasive adenocarcinoma - Objective Vital Signs & Weight: Vital Signs (12 hours) Temp Pulse Resp BP Pulse Ox 09/25/19 08:00 96.2 F L 69 18 112/69 97 09/25/19 03:12 97.6 F 68 18 102/58 L 94 L Weight Weight 216 lb I&O: 09/24/19 09/25/19 09/26/19 06:59 06:59 06:59 Intake Total 1719 Output Total 200 Balance 1519 Result Diagrams: 09/25/19 03:26 09/25/19 03:26 Additional Labs: Accuchecks 09/25/19 09/25/19 09/24/19 11:00 05:18 20:25 POC Glucose 191 H 195 H 204 H 09/24/19 16:48 POC Glucose 177 H Hospitalist ROS - Review of Systems Constitutional: denies: fever, chills - Medication Medications: Active Medications Generic Name Dose Route Start Last Admin Trade Name Rita PRN Reason Stop Dose Admin Acetaminophen 1,000 mg 09/24/19 18:00 09/25/19 11:45 Tylenol PO 1,000 mg Q6HR MARIO Administration Amiodarone HCl 200 mg 09/22/19 09:00 09/25/19 07:55 Cordarone PO 200 mg DAILY MARIO Administration Aspirin 81 mg 09/25/19 09:00 09/25/19 07:55 Ecotrin PO 81 mg DAILY MARIO Administration Atorvastatin Calcium 80 mg 09/22/19 21:00 09/24/19 20:21 Lipitor PO 80 mg HS MARIO Administration Carvedilol 3.125 mg 09/22/19 08:00 09/25/19 07:54 Coreg PO 3.125 mg BID-WM MARIO Administration Enoxaparin Sodium 40 mg 09/24/19 21:00 09/24/19 20:21 Lovenox SC 40 mg 2100 MARIO Administration Famotidine 20 mg 09/24/19 21:00 09/25/19 07:55 Pepcid SLOW IVP 20 mg Q12HR MARIO Administration Fenofibrate 48 mg 09/22/19 09:00 09/25/19 07:54 Tricor PO 48 mg DAILY MARIO Administration Gabapentin 300 mg 09/22/19 09:00 09/25/19 07:54 Neurontin PO 300 mg BID MARIO Administration Sodium Chloride 1,000 mls @ 120 mls/hr 09/24/19 13:13 09/25/19 07:53 Normal Saline 0.9% IV 1,000 mls .Q8H20M MARIO Administration Insulin Human Lispro 0 units 09/22/19 05:23 09/24/19 20:31 Humalog SC 2 unit .BEDTIME SLIDING SC PRN Administration Bedtime Correctional Scale Ketorolac Tromethamine 15 mg 09/24/19 18:00 09/25/19 11:47 Toradol IVP 09/27/19 18:01 Not Given Q6HR MARIO Pantoprazole Sodium 40 mg 09/25/19 09:00 09/25/19 07:54 Protonix PO 40 mg DAILY MARIO Administration Sodium Chloride 10 ml 09/22/19 09:00 09/25/19 07:55 Flush - Normal Saline IVF Not Given Q12HR MARIO - Exam General Appearance: NAD, awake alert Eye: PERRL, anicteric sclera ENT: normocephalic atraumatic, no oropharyngeal lesions Neck: no JVD Heart: RRR, no murmur, no gallops, no rubs, normal peripheral pulses Respiratory: CTAB, no wheezes, no rales, no ronchi Gastrointestinal: soft, non-distended Gastrointestinal - other findings: mild suprapubic tenderness . Spring catheter in place Extremities: no cyanosis, no clubbing, no edema Skin: normal turgor, no lesions, no rashes Hosp A/P - Plan EGD/colonoscopy: normal EGD. Colonoscopy with near circumferential mass in the distal sigmoid colon at about 20 cm from the anorectal verge. Polyp distal to the rectal mass at about 15 cm, partially removed. Polyp of high grade dysplasia is possible This is a 68 year old male who presented with rectal bleeding, s/p EGD and colonoscpy showing a 20 cm colon mass which is positive for cancer. He is s/p resection 09/23 #Acute blood loss anemia secondary to lower GI bleed from invasive adenocarcinoma of colon #Tubular adenoma of rectum - patient had 20 cm colon mass that was resected 09/23. Pathology report pending regarding margins. Colon mass + for invasive adenocarcinoma. Rectal polyp shows tubular adenoma - Hb slightly downtrending at 8.4, continue to monitor CAD s/p bypass -continue aspirin/statin - ECHO showed EF 35-40%, moderate MR, hypokinetic septal wall Afib - on amiodarone - continue to hold xarelto per surgery Type II diabetes - metformin on hold - blood sugars controlled 170-190 DIspo: pending path report, trend hb, re-evaluate spring catheter removal tomorrow DVT prophylaxis: ambulation Code status: full code
--- NOTE | 2019-09-25 15:58 | PRG ---
DATE OF SERVICE: 09/25/2019 SUBJECTIVE: Mr. Yanez is postoperative day #1 following laparoscopic hand-assisted low anterior resection of a rectosigmoid cancer. He remains on the telemetry floor for evaluation of his atrial fibrillation. He is followed by Dr. Peacock and the Hospitalist Service. He had presented with hematochezia from his cancer after he had been started on Xarelto. He has no complaints today. He notes he has minimal discomfort. He has walked in the [place] several times. He is on a clear liquid diet, which he has been tolerating thus far. His urine output overnight was only about 200 mL. I therefore decided not to remove the Cortez catheter at this time. OBJECTIVE: GENERAL: On examination, he is afebrile. VITAL SIGNS: Current temperature of 96.2, pulse of 69, blood pressure of 112/60. LUNGS: Clear to auscultation. ABDOMEN: Obese, but soft and nontender with all incisions healing nicely. Bowel sounds are present and normoactive. LABORATORY DATA: His hemoglobin is 8.4, down from 8.9 preoperatively yesterday. White blood cell count is 9.4. His chemistry panel shows minimal electrolyte abnormalities. His creatinine is 1.27, stable from 1.21 a couple of days ago. Blood sugars were somewhat elevated at about 177 to 191. ASSESSMENT: He is stable following colorectal resection of a bleeding colon cancer. The pathology from his biopsies preoperatively showed a moderately differentiated invasive carcinoma and about 2 cm distal to this was tubular adenoma with focal high-grade dysplasia. I believe these were both resected with his specimen. I will leave him on a clear liquid diet for today. I will advance him to full liquids in the morning. His Cortez catheter will be removed tomorrow. His IV fluid will continue today secondary to his low urine output. Dr. Larkin is covering for the weekend. Job ID: [id number]
[2019-09-25] MEDS: Potassium Chloride 20 MEQ in Lactated Ringer's 1,000 ML IV SCH (17:54)
[2019-09-25] MEDS: Enoxaparin Sodium 40 MG/0.4 ML SYRINGE SC SCH (20:37)
[2019-09-25] MEDS: Atorvastatin Calcium 40 MG TAB PO SCH (20:37)
[2019-09-26] MEDS: Ketorolac Tromethamine 30 MG/ML VIAL IVP SCH ×3 (01:57→11:09)
[2019-09-26] MEDS: Acetaminophen 500 MG TAB PO SCH ×4 (01:57→17:49)
[2019-09-26] MEDS: Potassium Chloride 20 MEQ in Lactated Ringer's 1,000 ML IV SCH ×2 (02:00→08:01)
[2019-09-26] MEDS: Gabapentin 300 MG CAP PO SCH ×2 (08:00→20:39)
[2019-09-26] MEDS: Fenofibrate 48 MG TAB PO SCH (08:00)
[2019-09-26] MEDS: Famotidine/PF 20 mg/2ml Vial SLOW IVP SCH (08:00)
[2019-09-26] MEDS: Amiodarone 200 MG TAB PO SCH (08:00)
[2019-09-26] MEDS: Carvedilol 3.125 MG TAB PO SCH ×2 (08:00→17:49)
[2019-09-26] MEDS: Aspirin 81 mg Enteric Coated Tablet PO SCH (08:00)
--- NOTE | 2019-09-26 10:03 | PDOC.HOSPP ---
- Subjective Encounter Date: 09/26/19 (f/u Gi bleed) Encounter Time: 10:01 Subjective: Pt is now on HD5 - admitted for GI bleed, found to have colon cancer and underwent resection on 09/23. Post-surgery he's been noted to have dark urine. Cortez cath was removed today. Pt without complaints today - has noticed lower extremity edema today and reports it is new. He denies pain/n/v, denies dyspnea. - Objective Vital Signs & Weight: Vital Signs (12 hours) Temp Pulse Resp BP Pulse Ox 09/26/19 08:00 97.0 F L 78 17 125/66 99 09/26/19 02:04 97.2 F L 68 18 125/75 97 Weight Weight 216 lb I&O: 09/25/19 09/26/19 09/27/19 06:59 06:59 06:59 Intake Total 1719 1800 Output Total 200 800 Balance 1519 1000 Result Diagrams: 09/26/19 10:05 09/26/19 10:05 Additional Labs: Accuchecks 09/26/19 09/25/19 09/25/19 05:28 20:16 11:00 POC Glucose 149 H 200 H 191 H EKG Reviewed by me: Yes (tele - a fib 60-80's) Hospitalist ROS - Medication Medications: Active Medications Generic Name Dose Route Start Last Admin Trade Name Freq PRN Reason Stop Dose Admin Acetaminophen 1,000 mg 09/24/19 18:00 09/26/19 08:01 Tylenol PO 1,000 mg Q6HR MARIO Administration Amiodarone HCl 200 mg 09/22/19 09:00 09/26/19 08:00 Cordarone PO 200 mg DAILY MARIO Administration Aspirin 81 mg 09/25/19 09:00 09/26/19 08:00 Ecotrin PO 81 mg DAILY MARIO Administration Atorvastatin Calcium 80 mg 09/22/19 21:00 09/25/19 20:37 Lipitor PO 80 mg HS MARIO Administration Carvedilol 3.125 mg 09/22/19 08:00 09/26/19 08:00 Coreg PO 3.125 mg BID-WM MARIO Administration Enoxaparin Sodium 40 mg 09/24/19 21:00 09/25/19 20:37 Lovenox SC 40 mg 2100 MARIO Administration Famotidine 20 mg 09/24/19 21:00 09/26/19 08:00 Pepcid SLOW IVP 20 mg Q12HR MARIO Administration Fenofibrate 48 mg 09/22/19 09:00 09/26/19 08:00 Tricor PO 48 mg DAILY MARIO Administration Gabapentin 300 mg 09/22/19 09:00 09/26/19 08:00 Neurontin PO 300 mg BID MARIO Administration Potassium Chloride 20 meq/ 1,010 mls @ 125 mls/hr 09/25/19 14:45 09/26/19 08: 01 Lactated Ringer's IV Not Given .Q8H5M MARIO Insulin Human Lispro 0 units 09/22/19 05:23 09/24/19 20:31 Humalog SC 2 unit .BEDTIME SLIDING SC PRN Administration Bedtime Correctional Scale Ketorolac Tromethamine 15 mg 09/24/19 18:00 09/26/19 08:01 Toradol IVP 09/27/19 18:01 Not Given Q6HR MARIO Pantoprazole Sodium 40 mg 09/25/19 09:00 09/26/19 08:00 Protonix PO 40 mg DAILY MARIO Administration Sodium Chloride 10 ml 09/22/19 09:00 09/26/19 08:01 Flush - Normal Saline IVF Not Given Q12HR MARIO - Exam General Appearance: NAD Heart: no murmur, irregular Respiratory: CTAB, no wheezes Gastrointestinal: soft, non-tender, non-distended, normal bowel sounds Extremities - other findings: 2+ LE edema bilateral Neurological: no focal deficits Psychiatric: normal affect Hosp A/P (1) Colon cancer Code(s): C18.9 - MALIGNANT NEOPLASM OF COLON, UNSPECIFIED Status: Resolved Qualifiers: Colon location: unspecified part of colon Qualified Code(s): C18.9 - Malignant neoplasm of colon, unspecified (2) Anemia Code(s): D64.9 - ANEMIA, UNSPECIFIED Status: Acute Qualifiers: Other causes of anemia: acute posthemorrhagic (3) Coronary artery disease Code(s): I25.10 - ATHSCL HEART DISEASE OF [place] CORONARY ARTERY W/O ANG PCTRS Status: Chronic Qualifiers: Coronary Disease-Associated Artery/Lesion type: bypass graft (4) Diabetes mellitus Code(s): E11.9 - TYPE 2 DIABETES MELLITUS WITHOUT COMPLICATIONS Status: Chronic Qualifiers: Diabetes mellitus type: type 2 (5) Afib Code(s): I48.91 - UNSPECIFIED ATRIAL FIBRILLATION Status: Chronic Qualifiers: Atrial fibrillation type: unspecified Qualified Code(s): I48.91 - Unspecified atrial fibrillation (6) GI bleed Code(s): K92.2 - GASTROINTESTINAL HEMORRHAGE, UNSPECIFIED Status: Resolved - Plan Pt is s/p colon resection 09/23 for adenocarcinoma - appreciate Gen Surgery recs LE edema secondary to third spacing - slow IVF. Will continue IVF as urine remains dark, encourage PO intake. check labs today - hb and type and screen and renal function/electrolytes anemia -recheck today, and transfuse if below 7 continue SSI RUTH hose for edema dvt prophy - lovenox gi prophy - protonix code status full anticipated length of stay based on ability to tolerate PO, stability of Hb and Gen Surgery recommendations reviewed plan of care with patient, no questions or further needs at end of eval. Addendum - reviewed labs and pt has an ALKA - may be secondary to third spacing of fluids, scheduled toradol. Will increase IVF rate, d/c toradol, order renal US and obtain urinalysis. Recheck in AM - if worse/any concerns will consider Nephrology consult. Recheck metabolic panel this afternoon and change fluids to NS without potassium.
[2019-09-26] MEDS ORDERED: Potassium Chloride 20 MEQ in Lactated Ringer's 1,000 ML IV SCH ×3 (10:04→12:02)
[2019-09-26 10:25] LABS: #Lymphocytes 1.1 thou/uL (1.20-3.40); #Neutrophils 10.8 thou/uL (1.40-6.50); %Basophils 0.3 % (0.0-1.0); %Eosinophils 0.1 % (0.0-10.0); %Lymphocytes 8.6 % (21.0-51.0); %Monocytes 7.4 % (0.0-10.0); %Neutrophils 83.5 % (42.0-75.0); Hemoglobin 9.6 g/dL (14.0-18.0); Mean Corpuscular HGB CONC 32.5 g/dL (32.0-36.0); Mean Corpuscular Hemoglobin 29.1 pg (27.0-31.0); Mean Corpuscular Volume 89.5 fL (78.0-98.0); Mean Platelet Volume 11.2 fL (7.4-10.4); Platelet Count 208 thou/uL (130-400); RBC Distribution Width 21.3 % (11.5-14.5); Red Blood Cell (RBC) Count 3.31 mill/uL (4.70-6.10)
[2019-09-26 10:44] LABS: Anion Gap 15 mmol/L (10-20); BUN (Urea Nitrogen) 30 mg/dL (8.4-25.7); Calc. Creatinine Clearance 55 mL/min (70-130); Calcium 8.3 mg/dL (7.8-10.44); Carbon Dioxide 19 mmol/L (23-31); Chloride 105 mmol/L (98-107); Estimated GFR-MDRD 38; Glucose 130 mg/dL (80-115); Potassium 4.6 mmol/L (3.5-5.1); Sodium 134 mmol/L (136-145)
[2019-09-26] MEDS ORDERED: traMADol HCl 50 MG TAB PO PRN (16:01)
[2019-09-26 16:24] LABS: Bilirubin Negative (Negative); Blood, Urine Trace (Negative); Clarity Clear (Clear); Glucose, Urine (Dipstick) Normal (Negative); Ketone, Urine Negative (Negative); Leukocyte 500 Leu/uL (Negative); Nitrite Negative (Negative); Protein, Urine (Dipstick) 20 mg/dL (Neg-Trace); RBC/HPF 0-3 HPF (0-3); Specific Gravity, Urine 1.018 (1.002-1.036); Squamous Epithelial 0-3 HPF (0-3); Urobilinogen Normal mg/dL (Less than 2); pH, Urine 5.5 (5.0-9.0)
[2019-09-26 16:25] LABS: Bacteria/HPF 1+ HPF (None Seen)
[2019-09-26 16:26] LABS: Urine Culture Reflex Yes Yes
--- NOTE | 2019-09-26 17:19 | PDOC.CPN ---
- Subjective Date: 09/26/19 Time: 17:15 Interval history: No new issues. No angina. no palpitations. Has noticed worsening edema on legs. - Review of Systems General: denies: fever/chills, weight/appetite/sleep changes, night sweats, fatigue Respiratory: denies: cough, congestion, shortness of breath, exercise intolerance Cardiovascular: denies: chest pain, palpitation, edema, paroxysmal nocturnal dyspnea, orthopnea Gastrointestinal: denies: nausea, vomiting, diarrhea, constipation, abd pain, GI bleeding Musculoskeletal: denies: pain, tenderness, stiffness, swelling, arthritis/ arthralgias Neurological: denies: numbness, syncope, seizure, weakness - Objective Allergies/Adverse Reactions: Allergies Allergy/AdvReac Type Severity Reaction Status Date / Time No Known Allergies Allergy Verified 09/22/19 09:12 Visit Medications: Current Medications Acetaminophen (Tylenol) 1,000 mg PO Q6HR [facility] Last Admin: 09/26/19 11:09 Dose: Not Given Hydrocodone Bitart/Acetaminophen ([place] 7.5/325) 1 tab PO Q4H PRN PRN Reason: Moderate Pain (4-6) Hydrocodone Bitart/Acetaminophen ([place] 7.5/325) 2 tab PO Q4H PRN PRN Reason: Severe Pain (7-10) Albuterol/Ipratropium (Duoneb) 3 ml NEB Q4H PRN PRN Reason: Wheezing Amiodarone HCl (Cordarone) 200 mg PO DAILY [facility] Last Admin: 09/26/19 08:00 Dose: 200 mg Aspirin (Ecotrin) 81 mg PO DAILY [facility] Last Admin: 09/26/19 08:00 Dose: 81 mg Atorvastatin Calcium (Lipitor) 80 mg PO HS [facility] Last Admin: 09/25/19 20:37 Dose: 80 mg Carvedilol (Coreg) 3.125 mg PO BID-WM [facility] Last Admin: 09/26/19 08:00 Dose: 3.125 mg Dextrose/Water (Dextrose 50%) 25 gm SLOW IVP PRN PRN PRN Reason: Hypoglycemia Enoxaparin Sodium (Lovenox) 40 mg SC 2100 [facility] Last Admin: 09/25/19 20:37 Dose: 40 mg Fenofibrate (Tricor) 48 mg PO DAILY [facility] Last Admin: 09/26/19 08:00 Dose: 48 mg Gabapentin (Neurontin) 300 mg PO BID [facility] Last Admin: 09/26/19 08:00 Dose: 300 mg Glucagon (Glucagon) 1 mg IM PRN PRN PRN Reason: Hypoglycemia Guaifenesin/Dextromethorphan (Robitussin Dm) 15 ml PO Q4H PRN PRN Reason: Cough Hydralazine HCl (Apresoline) 10 mg SLOW IVP Q4H PRN PRN Reason: SBP > 170 or DBP > 100 Dextrose/Water (D5w) 1,000 mls @ 0 mls/hr IV .Q0M PRN PRN Reason: Hypoglycemia Sodium Chloride (Normal Saline 0.9%) 1,000 mls @ 100 mls/hr IV .Q10H [facility] Insulin Human Lispro (Humalog) 0 units SC .MODERATE SLIDING SC PRN PRN Reason: Moderate Correctional Scale Insulin Human Lispro (Humalog) 0 units SC .BEDTIME SLIDING SC PRN PRN Reason: Bedtime Correctional Scale Last Admin: 09/24/19 20:31 Dose: 2 unit Morphine Sulfate (Morphine) 2 mg SLOW IVP Q2H PRN PRN Reason: Mild Pain (1-3) Morphine Sulfate (Morphine) 4 mg SLOW IVP Q2H PRN PRN Reason: Moderate Pain (4-6) Ondansetron HCl (Zofran) 4 mg IVP Q6H PRN PRN Reason: Nausea/Vomiting Pantoprazole Sodium (Protonix) 40 mg PO DAILY [facility] Last Admin: 09/26/19 08:00 Dose: 40 mg Promethazine HCl (Phenergan) 12.5 mg IM Q4H PRN PRN Reason: Nausea/Vomiting Sodium Chloride (Flush - Normal Saline) 10 ml IVF Q12HR [facility] Last Admin: 09/26/19 08:01 Dose: Not Given Sodium Chloride (Flush - Normal Saline) 10 ml IVF PRN PRN PRN Reason: Saline Flush Tramadol HCl (Ultram) 50 mg PO Q4H PRN PRN Reason: Moderate Pain (4-6) Vital Signs & Weight: Vital Signs Temp Pulse Resp BP BP Pulse Ox 09/26/19 16:00 98.0 F 76 17 118/74 97 09/26/19 12:17 98.1 F 77 16 105/75 98 09/26/19 08:00 97.0 F L 78 17 125/66 99 Weight 216 lb - Physical Exam General: alert & oriented x3 HEENT: mucus membranes moist Neck: supple neck Cardiac: irregularly regular Lungs: clear to auscultation Neuro: grossly intact Abdomen: active bowel sounds Extremities: 1+ LE edema Skin: clear Musculoskeletal: no pain - Labs Result Diagrams: 09/26/19 10:05 09/26/19 10:05 - Telemetry Supraventricular conduction: atrial fibrillation - Assessment/Plan Assessment/Plan: 1. Afib rate controlled. 2. GI bleed 3. S/P Colon malignancy resection. 4. Hx of CABG 5. Hx of sten placement. 6., Ischemic CM EF at 35-40% PLAN: - Creatinine took a little bump, if edema worsens and creatinine continues to rise he will need diuresis, edema is minimal today. - Continue other meds.
[2019-09-26 17:21] LABS: Anion Gap 14 mmol/L (10-20); BUN (Urea Nitrogen) 29 mg/dL (8.4-25.7); Calc. Creatinine Clearance 60 mL/min (70-130); Calcium 8.4 mg/dL (7.8-10.44); Carbon Dioxide 18 mmol/L (23-31); Chloride 106 mmol/L (98-107); Estimated GFR-MDRD 43; Glucose 114 mg/dL (80-115); Potassium 4.7 mmol/L (3.5-5.1); Sodium 133 mmol/L (136-145)
--- NOTE | 2019-09-26 17:33 | ULT ---
RENAL ULTRASOUND: 09/26/19 HISTORY: Renal failure. Left kidney measures approximately 10 cm in length. No evidence of hydronephrosis In the right kidney, there is a small echogenic focus inferior pole consistent with a small calculus measuring in the 5 mm range. In the left kidney, there are multiple small tiny echogenic foci consist ent with multiple tiny calculi. The urinary bladder is distended and appears unremarkable. Small amount of free fluid seen in the pelvis adjacent to the bladder. Correlation made to CT scan from 09/23/19. The ultrasound findings correspond to the CT findings of ti ny renal calculi with no hydronephrosis or renal mass. IMPRESSION: 1. Evidence of bilateral renal calculi. 2. No evidence of hydronephrosis. 3. Small amount of free fluid in the pelvis. POS: AGW
[2019-09-26] MEDS: Sodium Chloride 0.9% 1,000 ML IV SCH ×2 (17:49→17:50)
[2019-09-26] MEDS ORDERED: Non-Formulary Item 1 EACH (Cyanocobalamin (Vitamin B-12) [Vitamin B-12] 100 MCG) PO SCH (19:45)
--- NOTE | 2019-09-26 20:13 | PRG ---
DATE OF SERVICE: 09/26/2019 SUBJECTIVE: Fadi Yanez is seen today for Dr. Hallman over the weekend. He is status post low-anterior resection, hand-assisted laparoscopic, 09/24/2019. 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 This morning, his white count is 13, hemoglobin 9.6. Of note is that he had exacerbation of his renal function with acute kidney injury. BUN 30, creatinine 1.77, sodium 134. It was rechecked again, 29 BUN and creatinine 1.6. The patient is having a bowel movement. OBJECTIVE: LUNGS: Clear to auscultation. CARDIAC: Regular rate and rhythm. No murmur or gallop. ABDOMEN: Soft, nontender. Surgical wounds are healthy without problems. ASSESSMENT AND PLAN: Doing well. GI function is resumed. We will resume a diabetic diet. He is complaining of his food. Resume his diabetic medications. Hopefully, his ALKA will be better, so he can be discharged home tomorrow. He is drinking liquids adequately. Job ID: [id number]
[2019-09-26] MEDS: cefTRIAXone\\ROCEPHIN 1 GM in Sodium Chloride 0.9% 100 ML IVPB SCH (20:38)
[2019-09-26] MEDS: Enoxaparin Sodium 40 MG/0.4 ML SYRINGE SC SCH (20:39)
[2019-09-26] MEDS: Atorvastatin Calcium 40 MG TAB PO SCH (20:39)
[2019-09-27] MEDS: Acetaminophen 500 MG TAB PO SCH ×4 (00:51→17:47)
[2019-09-27 04:16] LABS: #Basophils 0.1 thou/uL (0.0-0.2); #Lymphocytes 1.4 thou/uL (1.20-3.40); #Monocytes 0.7 thou/uL (0.11-0.59); %Basophils 0.6 % (0.0-1.0); %Eosinophils 0.5 % (0.0-10.0); %Lymphocytes 15.5 % (21.0-51.0); %Monocytes 7.3 % (0.0-10.0); %Neutrophils 76.1 % (42.0-75.0); Mean Corpuscular HGB CONC 32.9 g/dL (32.0-36.0); Mean Corpuscular Hemoglobin 29.2 pg (27.0-31.0); Mean Corpuscular Volume 88.9 fL (78.0-98.0); Mean Platelet Volume 11.3 fL (7.4-10.4); Platelet Count 204 thou/uL (130-400); RBC Distribution Width 21.2 % (11.5-14.5); Red Blood Cell (RBC) Count 3.08 mill/uL (4.70-6.10); White Blood Cell (WBC) Count 9.2 thou/uL (4.8-10.8)
[2019-09-27 04:32] LABS: Anion Gap 14 mmol/L (10-20); BUN (Urea Nitrogen) 26 mg/dL (8.4-25.7); Calc. Creatinine Clearance 70 mL/min (70-130); Calcium 8.2 mg/dL (7.8-10.44); Carbon Dioxide 18 mmol/L (23-31); Chloride 110 mmol/L (98-107); Estimated GFR-MDRD 50; Glucose 99 mg/dL (80-115); Potassium 4.7 mmol/L (3.5-5.1); Sodium 137 mmol/L (136-145)
[2019-09-27] MEDS: Sodium Chloride 0.9% 1,000 ML IV SCH ×3 (04:57→20:21)
[2019-09-27] MEDS ORDERED: Non-Formulary Item 1 EACH (Rivaroxaban [Xarelto] 20 MG) PO SCH (09:00)
[2019-09-27] MEDS: Cholecalciferol 1,000 UNITS (25 MCG) TAB PO SCH (09:18)
[2019-09-27] MEDS: Aspirin 81 mg Enteric Coated Tablet PO SCH (09:18)
[2019-09-27] MEDS: Carvedilol 3.125 MG TAB PO SCH ×2 (09:18→17:47)
[2019-09-27] MEDS: Lisinopril 5 MG TAB PO SCH (09:18)
--- NOTE | 2019-09-27 09:18 | PDOC.HOSPP ---
- Subjective Encounter Date: 09/27/19 (f/u GI bleed) Encounter Time: 09:18 Subjective: Pt denies any complaints today. Denies any breathing problems, chest pain, n/v/ abd pain. He thinks the swelling in his legs is better. - Objective Vital Signs & Weight: Vital Signs (12 hours) Temp Pulse Resp BP BP Pulse Ox 09/27/19 07:47 98.0 F 76 20 127/80 96 09/27/19 03:06 98.3 F 68 18 120/73 96 Weight Weight 216 lb I&O: 09/26/19 09/27/19 09/28/19 06:59 06:59 06:59 Intake Total 1800 3050 Output Total 800 2400 Balance 1000 650 Result Diagrams: 09/27/19 03:35 09/27/19 03:35 Additional Labs: Accuchecks 09/27/19 09/26/19 09/26/19 05:50 20:28 17:24 POC Glucose 104 157 H 122 H 09/26/19 09/25/19 10:50 18:04 POC Glucose 144 H 170 H UA from yesterday - +LE, WBC Radiology Reviewed by me: Yes (Renal ultrasound - non-obstructing bilateral renal calculi) EKG Reviewed by me: Yes (tele - a fib with rate 70-80's) Hospitalist ROS - Medication Medications: Active Medications Generic Name Dose Route Start Last Admin Trade Name Freq PRN Reason Stop Dose Admin Acetaminophen 1,000 mg 09/24/19 18:00 09/27/19 05:00 Tylenol PO Not Given Q6HR [facility] Amiodarone HCl 200 mg 09/22/19 09:00 09/26/19 08:00 Cordarone PO 200 mg DAILY MARIO Administration Aspirin 81 mg 09/25/19 09:00 09/26/19 08:00 Ecotrin PO 81 mg DAILY [facility]IO Administration Atorvastatin Calcium 80 mg 09/22/19 21:00 09/26/19 20:39 Lipitor PO 80 mg HS MARIO Administration Carvedilol 3.125 mg 09/22/19 08:00 09/26/19 17:49 Coreg PO 3.125 mg BID-WM MARIO Administration Enoxaparin Sodium 40 mg 09/24/19 21:00 09/26/19 20:39 Lovenox SC 40 mg 2100 MARIO Administration Fenofibrate 48 mg 09/22/19 09:00 09/26/19 08:00 Tricor PO 48 mg DAILY [facility] Administration Gabapentin 300 mg 09/22/19 09:00 09/26/19 20:39 Neurontin PO 300 mg BID [facility]IO Administration Sodium Chloride 1,000 mls @ 100 mls/hr 09/26/19 16:45 09/27/19 04:57 Normal Saline 0.9% IV 1,000 mls .Q10H MARIO Administration Ceftriaxone Sodium 1 gm/ 100 mls @ 200 mls/hr 09/26/19 20:00 09/26/19 20:38 Sodium Chloride IVPB 100 mls Q24HR MARIO Administration Insulin Human Lispro 0 units 09/22/19 05:23 09/24/19 20:31 Humalog SC 2 unit .BEDTIME SLIDING SC PRN Administration Bedtime Correctional Scale Pantoprazole Sodium 40 mg 09/25/19 09:00 09/26/19 08:00 Protonix PO 40 mg DAILY MARIO Administration Sodium Chloride 10 ml 09/22/19 09:00 09/26/19 20:49 Flush - Normal Saline IVF Not Given Q12HR MARIO - Exam General Appearance: NAD Heart: no murmur, irregular Respiratory: CTAB, no wheezes, no rales, no ronchi Gastrointestinal: soft, non-tender, non-distended, normal bowel sounds Extremities: 1+ LE edema Extremities - other findings: bilateral LE with RUTH hose on Psychiatric: normal affect Hosp A/P (1) Colon cancer Code(s): C18.9 - MALIGNANT NEOPLASM OF COLON, UNSPECIFIED Status: Resolved Qualifiers: Colon location: unspecified part of colon Qualified Code(s): C18.9 - Malignant neoplasm of colon, unspecified (2) Anemia Code(s): D64.9 - ANEMIA, UNSPECIFIED Status: Acute Qualifiers: Other causes of anemia: acute posthemorrhagic (3) Coronary artery disease Code(s): I25.10 - ATHSCL HEART DISEASE OF [place] CORONARY ARTERY W/O ANG PCTRS Status: Chronic Qualifiers: Coronary Disease-Associated Artery/Lesion type: bypass graft (4) Diabetes mellitus Code(s): E11.9 - TYPE 2 DIABETES MELLITUS WITHOUT COMPLICATIONS Status: Chronic Qualifiers: Diabetes mellitus type: type 2 (5) Afib Code(s): I48.91 - UNSPECIFIED ATRIAL FIBRILLATION Status: Chronic Qualifiers: Atrial fibrillation type: unspecified Qualified Code(s): I48.91 - Unspecified atrial fibrillation (6) GI bleed Code(s): K92.2 - GASTROINTESTINAL HEMORRHAGE, UNSPECIFIED Status: Resolved (7) UTI (urinary tract infection) Status: Acute Qualifiers: Urinary tract infection type: acute cystitis Hematuria presence: without hematuria Qualified Code(s): N30.00 - Acute cystitis without hematuria - Plan ALKA - improved with IVF and d/c toradol. Will slow IVF rate and continue until tomorrow. - renal US ordered yesterday UTI - new dx - Rocephin started last night, will await urine culture. Pt did have spring cath removed yesterday. Pt is s/p colon resection 09/23 for adenocarcinoma overall doing well - appreciate Gen Surgery recs LE edema improved, continue RUTH hose anemia -stable continue SSI dvt prophy - lovenox gi prophy - protonix code status full Anticipated length of stay based on timing of urine culture results - as this will help to determine antibiotics, and Gen Surgery recommendations - anticipate another 1-2 days. Will need determination on when to resume anti- coagulation for atrial fibrillation.
[2019-09-27] MEDS: Gabapentin 300 MG CAP PO SCH ×2 (09:19→20:21)
[2019-09-27] MEDS: Amiodarone 200 MG TAB PO SCH (09:20)
[2019-09-27] MEDS: Fenofibrate 48 MG TAB PO SCH (09:20)
[2019-09-27] MEDS: metFORMIN 500 MG TAB PO SCH ×2 (09:20→17:47)
[2019-09-27] MEDS: Ferrous Sulfate 325 MG TAB PO SCH (09:21)
--- NOTE | 2019-09-27 15:04 | PDOC.CPN ---
- Subjective Date: 09/27/19 Time: 15:02 Interval history: No new issues doing well. - Review of Systems General: denies: fever/chills, weight/appetite/sleep changes, night sweats, fatigue Respiratory: denies: cough, congestion, shortness of breath, exercise intolerance Cardiovascular: denies: chest pain, palpitation, edema, paroxysmal nocturnal dyspnea, orthopnea Gastrointestinal: denies: nausea, vomiting, diarrhea, constipation, abd pain, GI bleeding Musculoskeletal: denies: pain, tenderness, stiffness, swelling, arthritis/ arthralgias Neurological: denies: numbness, syncope, seizure, weakness - Objective Allergies/Adverse Reactions: Allergies Allergy/AdvReac Type Severity Reaction Status Date / Time No Known Allergies Allergy Verified 09/22/19 09:12 Visit Medications: Current Medications Acetaminophen (Tylenol) 1,000 mg PO Q6HR [facility] Last Admin: 09/27/19 13:39 Dose: Not Given Albuterol/Ipratropium (Duoneb) 3 ml NEB Q4H PRN PRN Reason: Wheezing Amiodarone HCl (Cordarone) 200 mg PO DAILY [facility] Last Admin: 09/27/19 09:20 Dose: 200 mg Aspirin (Ecotrin) 81 mg PO DAILY [facility] Last Admin: 09/27/19 09:18 Dose: 81 mg Atorvastatin Calcium (Lipitor) 80 mg [facility] Last Admin: 09/26/19 20:39 Dose: 80 mg Carvedilol (Coreg) 3.125 mg PO BID-[facility] Last Admin: 09/27/19 09:18 Dose: 3.125 mg Cholecalciferol (Vitamin D3) 2,000 units PO DAILY [facility] Last Admin: 09/27/19 09:18 Dose: 2,000 units Dextrose/Water (Dextrose 50%) 25 gm SLOW IVP PRN PRN PRN Reason: Hypoglycemia Enoxaparin Sodium (Lovenox) 40 mg SC 2100 [facility] Last Admin: 09/26/19 20:39 Dose: 40 mg Fenofibrate (Tricor) 48 mg PO DAILY [facility] Last Admin: 09/27/19 09:20 Dose: 48 mg Ferrous Sulfate (Feosol) 325 mg PO QA-[facility] Last Admin: 09/27/19 09:21 Dose: 325 mg Gabapentin (Neurontin) 300 mg PO BID [facility] Last Admin: 09/27/19 09:19 Dose: 300 mg Glucagon (Glucagon) 1 mg IM PRN PRN PRN Reason: Hypoglycemia Guaifenesin/Dextromethorphan (Robitussin Dm) 15 ml PO Q4H PRN PRN Reason: Cough Hydralazine HCl (Apresoline) 10 mg SLOW IVP Q4H PRN PRN Reason: SBP > 170 or DBP > 100 Dextrose/Water (D5w) 1,000 mls @ 0 mls/hr IV .Q0M PRN PRN Reason: Hypoglycemia Ceftriaxone Sodium 1 gm/ (Sodium Chloride) 100 mls @ 200 mls/hr IVPB Q24HR [facility] Last Admin: 09/26/19 20:38 Dose: 100 mls Sodium Chloride (Normal Saline 0.9%) 1,000 mls @ 50 mls/hr IV .Q20H [facility] Last Admin: 09/27/19 11:06 Dose: Not Given Insulin Human Lispro (Humalog) 0 units SC .MODERATE SLIDING SC PRN PRN Reason: Moderate Correctional Scale Insulin Human Lispro (Humalog) 0 units SC .BEDTIME SLIDING SC PRN PRN Reason: Bedtime Correctional Scale Last Admin: 09/24/19 20:31 Dose: 2 unit Lisinopril (Zestril) 5 mg PO DAILY [facility] Last Admin: 09/27/19 09:18 Dose: 5 mg Metformin HCl (Glucophage) 500 mg PO BID-[facility] Last Admin: 09/27/19 09:20 Dose: 500 mg Non-Formulary Medication (Cyanocobalamin (Vitamin B-12) [Vitamin B-12]) [facility] Ondansetron HCl (Zofran) 4 mg IVP Q6H PRN PRN Reason: Nausea/Vomiting Pantoprazole Sodium (Protonix) 40 mg PO DAILY [facility] Last Admin: 09/27/19 09:19 Dose: 40 mg Sodium Chloride (Flush - Normal Saline) 10 ml IVF Q12HR [facility] Last Admin: 09/27/19 09:24 Dose: Not Given Sodium Chloride (Flush - Normal Saline) 10 ml IVF PRN PRN PRN Reason: Saline Flush Tramadol HCl (Ultram) 50 mg PO Q4H PRN PRN Reason: Moderate Pain (4-6) Vital Signs & Weight: Vital Signs Temp Pulse Resp BP BP Pulse Ox 09/27/19 11:30 97.5 F L 79 19 133/63 97 09/27/19 09:18 77 09/27/19 07:47 98.0 F 76 20 127/80 96 09/27/19 03:06 98.3 F 68 18 120/73 96 Weight 216 lb - Physical Exam General: alert & oriented x3 HEENT: mucus membranes moist Neck: supple neck Cardiac: irregularly regular Lungs: clear to auscultation Neuro: grossly intact Abdomen: active bowel sounds Extremities: 1+ LE edema Skin: clear Musculoskeletal: no pain - Labs Result Diagrams: 09/27/19 03:35 09/27/19 03:35 - Telemetry Supraventricular conduction: atrial fibrillation - Assessment/Plan Assessment/Plan: 1. Afib rate controlled. 2. GI bleed 3. S/P Colon malignancy resection. 4. Hx of CABG 5. Hx of sten placement. 6., Ischemic CM EF at 35-40% PLAN: - Continue rate control. - Continue other meds. - Consider switching to Entresto as outpatient if creatinine remains stable.
--- NOTE | 2019-09-27 15:12 | PRG ---
DATE OF SERVICE: 09/27/2019 SUBJECTIVE: Fadi Yanez is doing well status post rectosigmoid cancer resection. He is having bowel movements. He is tolerating his diet. He had a Cortez catheter removed yesterday. susceptibilities, identification pending. He is on Rocephin. OBJECTIVE: VITAL SIGNS: Temperature 97.5 degrees, heart rate 79, blood pressure 133/65. HEAD, EARS, EYES, NOSE, AND THROAT: Unremarkable. LUNGS: Clear to auscultation. CARDIAC: Regular rate and rhythm without murmur or gallop. ABDOMEN: Soft, nontender. Postoperative pain as expected. Wounds look good. LABORATORY DATA: Hemoglobin 9, white count 9. Basic metabolic profile improved. BUN down to 26, creatinine 1.4, GFR 50. ASSESSMENT AND PLAN: 1. Acute kidney injury, improving. Continue gentle hydration. 2. Urinary tract infection, although, urine culture obtained a few hours after removal of his Crotez catheter. He did not have any fever. There is no dysuria. Per Medical, await culture results. Hopefully, he can be discharged home tomorrow on oral antibiotics. He should follow up with Dr. Hallman in approximately two weeks for pathology results. Job ID: [id number]
[2019-09-27] MEDS: cefTRIAXone\\ROCEPHIN 1 GM in Sodium Chloride 0.9% 100 ML IVPB SCH (20:20)
[2019-09-27] MEDS: Enoxaparin Sodium 40 MG/0.4 ML SYRINGE SC SCH (20:21)
[2019-09-27] MEDS: Atorvastatin Calcium 40 MG TAB PO SCH (20:21)
[2019-09-28] MEDS: Acetaminophen 500 MG TAB PO SCH ×5 (00:51→23:09)
[2019-09-28 04:16] LABS: Anion Gap 10 mmol/L (10-20); BUN (Urea Nitrogen) 22 mg/dL (8.4-25.7); Calc. Creatinine Clearance 76 mL/min (70-130); Calcium 8.2 mg/dL (7.8-10.44); Carbon Dioxide 20 mmol/L (23-31); Chloride 111 mmol/L (98-107); Estimated GFR-MDRD 55; Glucose 92 mg/dL (80-115); Potassium 4.3 mmol/L (3.5-5.1); Sodium 137 mmol/L (136-145)
[2019-09-28] MEDS: Cholecalciferol 1,000 UNITS (25 MCG) TAB PO SCH (09:19)
[2019-09-28] MEDS: metFORMIN 500 MG TAB PO SCH ×2 (09:19→18:14)
[2019-09-28] MEDS: Ferrous Sulfate 325 MG TAB PO SCH (09:20)
[2019-09-28] MEDS: Gabapentin 300 MG CAP PO SCH ×2 (09:20→20:35)
[2019-09-28] MEDS: Amiodarone 200 MG TAB PO SCH (09:21)
[2019-09-28] MEDS: Aspirin 81 mg Enteric Coated Tablet PO SCH (09:21)
[2019-09-28] MEDS: Carvedilol 3.125 MG TAB PO SCH ×2 (09:21→18:14)
[2019-09-28] MEDS: Lisinopril 5 MG TAB PO SCH (09:21)
[2019-09-28] MEDS: Fenofibrate 48 MG TAB PO SCH (09:21)
--- NOTE | 2019-09-28 11:07 | PDOC.HOSPP ---
- Subjective Encounter Date: 09/28/19 (f/u GI bleed) Encounter Time: 11:03 Subjective: Pt today c/o scrotal edema - states new and noticed when he was in the shower. He reports this occurred in the past when he had heart problems. He denies any dyspnea, cp, n/v/abd pain. some soreness in lower abd with movement. He denies any other new sx. - Objective Vital Signs & Weight: Vital Signs (12 hours) Temp Pulse Resp BP BP Pulse Ox 09/28/19 09:14 98.2 F 82 16 143/93 H 99 09/28/19 03:01 98.2 F 70 18 144/75 H 92 L Weight Weight 216 lb I&O: 09/27/19 09/28/19 09/29/19 06:59 06:59 06:59 Intake Total 3050 1880 Output Total 2400 900 Balance 650 980 Result Diagrams: 09/27/19 03:35 09/28/19 03:13 Additional Labs: Accuchecks 09/28/19 09/27/19 09/27/19 06:27 20:31 17:03 POC Glucose 105 157 H 118 H EKG Reviewed by me: Yes (a fib 70's. On chart is print-out of 3 sec pauses.) Hospitalist ROS - Medication Medications: Active Medications Generic Name Dose Route Start Last Admin Trade Name Freq PRN Reason Stop Dose Admin Acetaminophen 1,000 mg 09/24/19 18:00 09/28/19 07:08 Tylenol PO Not Given Q6HR MARIO Amiodarone HCl 200 mg 09/22/19 09:00 09/28/19 09:21 Cordarone PO 200 mg DAILY MARIO Administration Aspirin 81 mg 09/25/19 09:00 09/28/19 09:21 Ecotrin PO 81 mg DAILY MARIO Administration Atorvastatin Calcium 80 mg 09/22/19 21:00 09/27/19 20:21 Lipitor PO 80 mg HS MARIO Administration Carvedilol 3.125 mg 09/22/19 08:00 09/28/19 09:21 Coreg PO 3.125 mg BID-WM MARIO Administration Cholecalciferol 2,000 units 09/27/19 09:00 09/28/19 09:19 Vitamin D3 PO 2,000 units DAILY MARIO Administration Enoxaparin Sodium 40 mg 09/24/19 21:00 09/27/19 20:21 Lovenox SC 40 mg 2100 MARIO Administration Fenofibrate 48 mg 09/22/19 09:00 09/28/19 09:21 Tricor PO 48 mg DAILY MARIO Administration Ferrous Sulfate 325 mg 09/27/19 08:00 09/28/19 09:20 Feosol PO 325 mg QAM-WM MARIO Administration Gabapentin 300 mg 09/22/19 09:00 09/28/19 09:20 Neurontin PO 300 mg BID MARIO Administration Ceftriaxone Sodium 1 gm/ 100 mls @ 200 mls/hr 09/26/19 20:00 09/27/19 20:20 Sodium Chloride IVPB 100 mls Q24HR MARIO Administration Insulin Human Lispro 0 units 09/22/19 05:23 09/24/19 20:31 Humalog SC 2 unit .BEDTIME SLIDING SC PRN Administration Bedtime Correctional Scale Lisinopril 5 mg 09/27/19 09:00 09/28/19 09:21 Zestril PO 5 mg DAILY MARIO Administration Metformin HCl 500 mg 09/27/19 08:00 09/28/19 09:19 Glucophage PO 500 mg BID-WM MARIO Administration Pantoprazole Sodium 40 mg 09/25/19 09:00 09/28/19 09:20 Protonix PO 40 mg DAILY MARIO Administration Sodium Chloride 10 ml 09/22/19 09:00 09/28/19 09:22 Flush - Normal Saline IVF Not Given Q12HR MARIO - Exam General Appearance: NAD Heart: no murmur, irregular Respiratory: CTAB, no wheezes, no rales, no ronchi Gastrointestinal: soft, non-tender, non-distended, normal bowel sounds Extremities - other findings: 3+ pitting edema Skin - other findings: Scrotal edema - no ttp, erythema, induration Psychiatric: normal affect Hosp A/P (1) Colon cancer Code(s): C18.9 - MALIGNANT NEOPLASM OF COLON, UNSPECIFIED Status: Resolved Qualifiers: Colon location: unspecified part of colon Qualified Code(s): C18.9 - Malignant neoplasm of colon, unspecified (2) Anemia Code(s): D64.9 - ANEMIA, UNSPECIFIED Status: Acute Qualifiers: Other causes of anemia: acute posthemorrhagic (3) Coronary artery disease Code(s): I25.10 - ATHSCL HEART DISEASE OF [place] CORONARY ARTERY W/O ANG PCTRS Status: Chronic Qualifiers: Coronary Disease-Associated Artery/Lesion type: bypass graft (4) Diabetes mellitus Code(s): E11.9 - TYPE 2 DIABETES MELLITUS WITHOUT COMPLICATIONS Status: Chronic Qualifiers: Diabetes mellitus type: type 2 (5) Afib Code(s): I48.91 - UNSPECIFIED ATRIAL FIBRILLATION Status: Chronic Qualifiers: Atrial fibrillation type: unspecified Qualified Code(s): I48.91 - Unspecified atrial fibrillation (6) GI bleed Code(s): K92.2 - GASTROINTESTINAL HEMORRHAGE, UNSPECIFIED Status: Resolved (7) UTI (urinary tract infection) Status: Acute Qualifiers: Urinary tract infection type: acute cystitis Hematuria presence: without hematuria Qualified Code(s): N30.00 - Acute cystitis without hematuria (8) ALKA (acute kidney injury) Code(s): N17.9 - ACUTE KIDNEY FAILURE, UNSPECIFIED Status: Resolved - Plan ALKA - resolved - pt with LE edema and scrotal edema secondary to IVF used for ALKA. Will tx with a dose of IV lasix now and resume home lasix dosing tomorrow. A fib with noted pauses - Dr. Peacock to see today UTI - new dx -has received 2 doses of rocephin - u Cx is resulted, will send home with a few more days of antibiotics. Pt is s/p colon resection 09/23 for adenocarcinoma overall doing well - Dr. Hallman to see today, reports we can resume home Xarelto for stroke risk reduction. LE edema improved, continue RUTH hose anemia -stable continue SSI dvt prophy - change to Xarelto for stroke risk reduction with A Fib gi prophy - protonix code status full Anticipated length of stay based on Cardiology recommendations, anticipate d/c as soon as today. Addendum - d/w Dr. Peacock this evening who is considering cardioversion tomorrow.
[2019-09-28] MEDS ORDERED: Furosemide 20 MG/2 ML VIAL SLOW IVP SCH (11:15)
--- NOTE | 2019-09-28 16:55 | PDOC.FMACP ---
Advance Care Planning - Problem (1) Palliative care encounter Status: Acute Code(s): Z51.5 - ENCOUNTER FOR PALLIATIVE CARE (2) Afib Status: Chronic Code(s): I48.91 - UNSPECIFIED ATRIAL FIBRILLATION Qualifiers: Atrial fibrillation type: unspecified Qualified Code(s): I48.91 - Unspecified atrial fibrillation (3) Coronary artery disease Status: Chronic Code(s): I25.10 - ATHSCL HEART DISEASE OF [place] CORONARY ARTERY W/O ANG PCTRS Qualifiers: Coronary Disease-Associated Artery/Lesion type: bypass graft (4) Diabetes mellitus Status: Chronic Code(s): E11.9 - TYPE 2 DIABETES MELLITUS WITHOUT COMPLICATIONS Qualifiers: Diabetes mellitus type: type 2 (5) ALKA (acute kidney injury) Status: Resolved Code(s): N17.9 - ACUTE KIDNEY FAILURE, UNSPECIFIED (6) Colon cancer Status: Resolved Code(s): C18.9 - MALIGNANT NEOPLASM OF COLON, UNSPECIFIED Qualifiers: Colon location: unspecified part of colon Qualified Code(s): C18.9 - Malignant neoplasm of colon, unspecified - Note Participants: patient, palliative care Summary: Palliative Care introduced Advanced Care Planning, Mr Yanez was allowed an opportunity to decline. The diagnosis, prognosis of multiple morbidities and goals of care were discussed. Appropriate forms and documentation to accomplish the goals of care were discussed. Mr Yanez confirms his sister is his MPOA and that his wishes are in Directive to Physicians. He wishes to remain with full resuscitation measures, however in the event of a terminal condition or poor meaningful recovery he would not desire to remain on life sustaining measures. Confirmed documents (MPOA and Directive to Physician) were on patient chart and reflected his stated wishes. Time Spent (mins): 30
[2019-09-28] MEDS: Rivaroxaban 10 MG TAB PO SCH (18:14)
[2019-09-28] MEDS: Atorvastatin Calcium 40 MG TAB PO SCH (20:35)
[2019-09-28] MEDS: cefTRIAXone\\ROCEPHIN 1 GM in Sodium Chloride 0.9% 100 ML IVPB SCH (20:37)
[2019-09-29 04:23] LABS: #Eosinphils 0.3 thou/uL (0.0-0.7); #Lymphocytes 1.2 thou/uL (1.20-3.40); #Monocytes 0.7 thou/uL (0.11-0.59); %Basophils 0.7 % (0.0-1.0); %Eosinophils 4.9 % (0.0-10.0); %Lymphocytes 19.1 % (21.0-51.0); %Monocytes 10.8 % (0.0-10.0); %Neutrophils 64.5 % (42.0-75.0); Hemoglobin 8.2 g/dL (14.0-18.0); Mean Corpuscular HGB CONC 32.6 g/dL (32.0-36.0); Mean Corpuscular Hemoglobin 28.6 pg (27.0-31.0); Mean Corpuscular Volume 87.9 fL (78.0-98.0); Mean Platelet Volume 11.1 fL (7.4-10.4); Platelet Count 192 thou/uL (130-400); RBC Distribution Width 20.9 % (11.5-14.5); Red Blood Cell (RBC) Count 2.87 mill/uL (4.70-6.10); White Blood Cell (WBC) Count 6.1 thou/uL (4.8-10.8)
[2019-09-29 04:46] LABS: Anion Gap 11 mmol/L (10-20); BUN (Urea Nitrogen) 18 mg/dL (8.4-25.7); Calc. Creatinine Clearance 80 mL/min (70-130); Calcium 8.2 mg/dL (7.8-10.44); Carbon Dioxide 23 mmol/L (23-31); Chloride 109 mmol/L (98-107); Estimated GFR-MDRD 59; Glucose 96 mg/dL (80-115); Potassium 3.9 mmol/L (3.5-5.1); Sodium 139 mmol/L (136-145)
[2019-09-29] MEDS: Acetaminophen 500 MG TAB PO SCH ×3 (05:28→17:57)
--- NOTE | 2019-09-29 08:23 | PRG ---
DATE OF SERVICE: 09/28/2019 SUBJECTIVE: I saw Mr. Yanez yesterday on 09/28/2019. He is status post laparoscopic low anterior resection of a rectal cancer on 09/24/2019. It was therefore postoperative day #4 yesterday. He had recuperated nicely from the surgery. He was eating, drinking, voiding and having bowel movements. He denied any pain. His discharge had been delayed by a day because of a finding of a positive urine culture, which is currently being treated. He had a culture positive for Morganella. He has been on ceftriaxone in treatment of this. Yesterday, he was doing well and had no complaints and I anticipated his discharge. I was informed after I had seen him that there were concerns regarding the cardiac issue for which Dr. Peacock was reconsulted. The patient had apparently had a pause of a few seconds in his rhythm. For this reason, his discharge was delayed another day and he was kept here for an echocardiogram, which is to be performed today (09/28). OBJECTIVE: VITAL SIGNS: On examination yesterday, he was afebrile with pulse in the 70s, blood pressure 117/71. LUNGS: Clear. CARDIAC: Regular rhythm. ABDOMEN: Obese, but soft and nontender with all incisions nicely healed. LABORATORY DATA: Yesterday revealed unremarkable electrolyte abnormalities. His creatinine was 1.29, which is his baseline. His sugars were well controlled at 150. CBC was not obtained yesterday. ASSESSMENT: The patient was stable when I saw him yesterday. A note was not dictated at that time as I anticipated his discharge shortly after I saw him. From the surgical standpoint, he was stable for discharge at anytime. I cleared him to resume his Xarelto, which was restarted yesterday. He is able to take diet as tolerated, although he is currently n.p.o. for a transesophageal echocardiogram. I will check on him later today to see how he is doing, but again would anticipate discharge once appeared stable from a cardiac standpoint. Job ID: [id number]
--- NOTE | 2019-09-29 08:39 | PDOC.HOSPP ---
- Subjective Encounter Date: 09/29/19 (f/u GI bleed) Encounter Time: 08:36 Subjective: Pt is without complaints this morning - reports the swelling in the scrotum is improved, leg swelling improved. He denies n/v/abd pain/cp/sob. - Objective Vital Signs & Weight: Vital Signs (12 hours) Temp Pulse Resp BP BP Pulse Ox 09/29/19 07:47 98.1 F 81 16 151/82 H 98 09/29/19 03:08 98.1 F 67 20 117/71 94 L Weight Weight 213 lb 3.2 oz I&O: 09/28/19 09/29/19 09/30/19 06:59 06:59 06:59 Intake Total 1880 860 Output Total 900 2650 Balance 980 -1790 Result Diagrams: 09/29/19 03:34 09/29/19 03:34 Additional Labs: Accuchecks 09/29/19 09/28/19 09/28/19 05:53 23:14 18:07 POC Glucose 100 123 H 119 H 09/28/19 11:20 POC Glucose 132 H EKG Reviewed by me: Yes (tele - a fib 70-80's. No further pauses in 24 hours) Hospitalist ROS - Medication Medications: Active Medications Generic Name Dose Route Start Last Admin Trade Name Rita PRN Reason Stop Dose Admin Acetaminophen 1,000 mg 09/24/19 18:00 09/29/19 05:28 Tylenol PO Not Given Q6HR [facility] Amiodarone HCl 200 mg 09/22/19 09:00 09/28/19 09:21 Cordarone PO 200 mg DAILY MARIO Administration Aspirin 81 mg 09/25/19 09:00 09/28/19 09:21 Ecotrin PO 81 mg DAILY MARIO Administration Atorvastatin Calcium 80 mg 09/22/19 21:00 09/28/19 20:35 Lipitor PO 80 mg HS MARIO Administration Carvedilol 3.125 mg 09/22/19 08:00 09/28/19 18:14 Coreg PO 3.125 mg BID-WM MARIO Administration Cholecalciferol 2,000 units 09/27/19 09:00 09/28/19 09:19 Vitamin D3 PO 2,000 units DAILY MARIO Administration Fenofibrate 48 mg 09/22/19 09:00 09/28/19 09:21 Tricor PO 48 mg DAILY MARIO Administration Ferrous Sulfate 325 mg 09/27/19 08:00 09/28/19 09:20 Feosol PO 325 mg QAM-WM MARIO Administration Gabapentin 300 mg 09/22/19 09:00 09/28/19 20:35 Neurontin PO 300 mg BID MARIO Administration Ceftriaxone Sodium 1 gm/ 100 mls @ 200 mls/hr 09/26/19 20:00 09/28/19 20:37 Sodium Chloride IVPB 100 mls Q24HR MARIO Administration Insulin Human Lispro 0 units 09/22/19 05:23 09/24/19 20:31 Humalog SC 2 unit .BEDTIME SLIDING SC PRN Administration Bedtime Correctional Scale Lisinopril 5 mg 09/27/19 09:00 09/28/19 09:21 Zestril PO 5 mg DAILY MARIO Administration Metformin HCl 500 mg 09/27/19 08:00 09/28/19 18:14 Glucophage PO 500 mg BID-WM MARIO Administration Pantoprazole Sodium 40 mg 09/25/19 09:00 09/28/19 09:20 Protonix PO 40 mg DAILY MARIO Administration Rivaroxaban 20 mg 09/28/19 18:00 09/28/19 18:14 Xarelto PO 20 mg 1800 MARIO Administration Sodium Chloride 10 ml 09/22/19 09:00 09/28/19 20:46 Flush - Normal Saline IVF 10 ml Q12HR MARIO Administration - Exam General Appearance: NAD Heart: RRR, no murmur Respiratory: CTAB, no wheezes, no rales, no ronchi Gastrointestinal: soft, non-tender, non-distended, normal bowel sounds Extremities: 2+ LE edema Extremities - other findings: LE - improved today. Musculoskeletal: normal tone Psychiatric: normal affect Hosp A/P (1) Colon cancer Code(s): C18.9 - MALIGNANT NEOPLASM OF COLON, UNSPECIFIED Status: Resolved Qualifiers: Colon location: unspecified part of colon Qualified Code(s): C18.9 - Malignant neoplasm of colon, unspecified (2) Anemia Code(s): D64.9 - ANEMIA, UNSPECIFIED Status: Acute Qualifiers: Other causes of anemia: acute posthemorrhagic (3) Coronary artery disease Code(s): I25.10 - ATHSCL HEART DISEASE OF [place] CORONARY ARTERY W/O ANG PCTRS Status: Chronic Qualifiers: Coronary Disease-Associated Artery/Lesion type: bypass graft (4) Diabetes mellitus Code(s): E11.9 - TYPE 2 DIABETES MELLITUS WITHOUT COMPLICATIONS Status: Chronic Qualifiers: Diabetes mellitus type: type 2 (5) Afib Code(s): I48.91 - UNSPECIFIED ATRIAL FIBRILLATION Status: Chronic Qualifiers: Atrial fibrillation type: unspecified Qualified Code(s): I48.91 - Unspecified atrial fibrillation (6) GI bleed Code(s): K92.2 - GASTROINTESTINAL HEMORRHAGE, UNSPECIFIED Status: Resolved (7) UTI (urinary tract infection) Status: Acute Qualifiers: Urinary tract infection type: acute cystitis Hematuria presence: without hematuria Qualified Code(s): N30.00 - Acute cystitis without hematuria (8) ALKA (acute kidney injury) Code(s): N17.9 - ACUTE KIDNEY FAILURE, UNSPECIFIED Status: Resolved - Plan LE/scrotal edema - improved - continue home dosing of lasix A fib with pauses - Dr. Peacock to perform CARMELA/cardioversion today. Xarelto initiated last night. UTI - has received 3 doses of Rocephin since admission - continue while here. Pt is s/p colon resection 09/23 for adenocarcinoma overall doing well - cleared for discharge by Dr. Hallman anemia -stable continue SSI dvt prophy - Xarelto for stroke risk reduction gi prophy - protonix code status full Anticipated length of stay based on Cardiology recommendations after procedure.
[2019-09-29] MEDS ORDERED: PROPOFOL 20 ML ONE (09:42)
[2019-09-29] MEDS ORDERED: Glycopyrrolate 0.2 MG/ML 5 ML SYRINGE ONE (09:42)
[2019-09-29] MEDS ORDERED: Lidocaine 2% Jelly 5 ML TUBE ONE (10:00)
[2019-09-29] MEDS ORDERED: Lidocaine Viscous Sol 2% 15 ml UD Cup ONE (10:00)
[2019-09-29] MEDS: Aspirin 81 mg Enteric Coated Tablet PO SCH (11:22)
[2019-09-29] MEDS: Cholecalciferol 1,000 UNITS (25 MCG) TAB PO SCH (11:22)
[2019-09-29] MEDS: Fenofibrate 48 MG TAB PO SCH (11:23)
[2019-09-29] MEDS: metFORMIN 500 MG TAB PO SCH ×2 (11:23→17:57)
[2019-09-29] MEDS: Ferrous Sulfate 325 MG TAB PO SCH (11:23)
[2019-09-29] MEDS: Furosemide 40 MG TAB PO SCH (11:23)
[2019-09-29] MEDS: Amiodarone 200 MG TAB PO SCH (11:23)
[2019-09-29] MEDS: Gabapentin 300 MG CAP PO SCH ×2 (11:23→22:11)
[2019-09-29] MEDS: Carvedilol 3.125 MG TAB PO SCH ×2 (11:23→17:57)
[2019-09-29] MEDS: cefTRIAXone\\ROCEPHIN 1 GM in Sodium Chloride 0.9% 100 ML IVPB SCH (11:24)
[2019-09-29] MEDS: Lisinopril 5 MG TAB PO SCH (11:24)
--- NOTE | 2019-09-29 13:33 | PDOC.EVN ---
Event Note - Event Note Event Note: Called by RN for bloody bowel movement. Pt was started on Xarelto last night, hb has dropped today. Hold on discharge, requested Dr. Hallman be informed. Of note, a left atrial thrombus identified on CARMELA and the cardioversion was not performed. For this reason (increased risk of stroke) will continue Xarelto even with the bleeding. Will trend hemoglobin, symptoms, and transfuse to maintain a hemoglobin of at least 7.
--- NOTE | 2019-09-29 14:19 | DIS ---
Note - this is a summary of care from 09/21 - 09/29/2019. The patient experienced rectal bleeding on September 28 and remains in the hospital. Please see daily progress notes. DATE OF ADMISSION: 09/22/2019 DATE OF DISCHARGE: CONSULTANTS: 1. General Surgery, Dr. Hallman. 2. Cardiology, Dr. Peacock. 3. Gastroenterology. PROCEDURES PERFORMED: 1. Removal of colon adenocarcinoma. 2. CARMELA with identification of left atrial thrombus. 3. Colonoscopy and EGD with results listed below. 4. Echocardiogram. DISCHARGE MEDICATIONS: Medications are reconciled at discharge. New medication: Tylenol 1000 mg every 6 hours as needed for pain. Medications to resume; 1. Amiodarone 200 mg p.o. daily. 2. Aspirin 81 mg daily. 3. Atorvastatin 80 mg daily. 4. Carvedilol 3.125 mg b.i.d. 5. Vitamin D3 of 2000 units daily. 6. Vitamin B12 of 100 mcg daily. 7. Fenofibrate 160 mg daily. 8. Ferrous sulfate 325 mg daily. 9. Furosemide 40 mg daily. 10. Gabapentin 300 mg t.i.d. p.r.n. 11. Lisinopril 5 mg daily. 12. Xarelto 20 mg daily. 13. Metformin 500 mg b.i.d. with meals. FINAL DIAGNOSES: 1. Gastrointestinal bleed secondary to colon adenocarcinoma, now status post resection. 2. Colon adenocarcinoma. 3. Acute kidney injury, resolved. 4. Systolic heart failure. 5. Anemia associated with gastrointestinal bleed. 6. Bilateral renal calculi, nonobstructive. 7. Urinary tract infection. SECONDARY DIAGNOSES: 1. Hypertension. 2. Dyslipidemia. 3. Chronic atrial fibrillation. HISTORY OF PRESENT ILLNESS: Mr. Yanez is a 69 y/o male, who presented to the emergency room with cristian red blood from his rectum, after starting Xarelto. He was admitted for further evaluation. HOSPITAL COURSE: The patient underwent endoscopy and was found to have a near circumferential mass in the distal sigmoid colon about 20 cm from the anorectal verge. There was also a polyp identified nearby. Biopsies were obtained and this confirmed adenocarcinoma. The patient was evaluated by Cardiology for preoperative evaluation. He does have rate controlled atrial fibrillation, and it was managed on a beta-jose and statin. No limitations to the operating room were identified. The patient did undergo operative resection on September [address] Hallman with resection of rectosigmoid cancer and an upper rectal polyp. Postoperatively, he has tolerated this well. In that postoperative period, the patient did have an acute kidney injury that was managed with stopping the Toradol, which was scheduled for pain medication, and IV fluids. He tolerated this well. His renal function returned down to normal. He did have swelling of his lower extremities and scrotum, which responded to a dose of IV Lasix. He will be continued on his usual home Lasix dose. The patient with the acute kidney injury, urinalysis was obtained, which was suspicious for infection. The patient also had an elevated white blood cell count on the date of urinalysis was obtained. The urine culture showed Morganella morganii and this was treated with ceftriaxone here. The patient did have a Cortez catheter postoperatively. The patient noted to have some 3-second pauses with rate controlled atrial fibrillation. Dr. Peacock today performed a CARMELA, which identified a left atrial thrombus. Because of that, the patient will need anticoagulation for approximately 1 month, and follow up with Cardiology to consider cardioversion at that time. The patient is overall doing well, he does meet criteria for discharge to home. PHYSICAL EXAMINATION: On day of discharge, please see the note on the chart. MORALES FINDINGS AND TEST RESULTS: CBC today 6.1, 8.2, 25.2, and 192. Chemistry today 139, 3.9, 109, 23, 18, 1.21, 96. Peak creatinine was 1.77 on September 25. Urinalysis on September 25 showed trace blood, 500 leukocyte esterase, 11 to 20 white blood cells, 1+ bacteria. Renal ultrasound on September 25, evidence of bilateral renal calculi, no evidence of hydronephrosis and a small amount of free fluid in the pelvis. Echocardiogram on September 24 shows an EF of 35% to 40%, hypokinetic motion of the septal wall in the left ventricle, moderate MR. Surgical specimen on September 23 showed a 3.2-cm tumor with negative margins, 2/16 mesenteric lymph nodes positive for metastatic carcinoma. Endoscopy on September 21, normal EGD, colonoscopy with near circumferential mass in the distal sigmoid colon at about 20 cm from the anorectal verge with a distal polyp. DIET: Heart healthy, carbohydrate consistent. ACTIVITY: As tolerated. FOLLOWUP: Follow up with Dr. Hallman in 2 weeks for post surgery re- evaluation. Follow up with Cardiology in 1 month. Follow up with the primary care provider within a week to review this hospitalization to necessitate for any other needs or concerns. DISCHARGE DISPOSITION: Home. Reviewed with the patient this hospitalization, the importance of followup and the seek care precautions. He demonstrates understanding. Total time coordinating discharge is 40 minutes. Job ID: [id number] MTDD
--- NOTE | 2019-09-29 14:34 | OP ---
DATE OF PROCEDURE: 09/29/2019 PROCEDURE PERFORMED: Transesophageal echocardiogram. INDICATION: This is a 69-year-old gentleman with mitral regurgitation. DESCRIPTION OF PROCEDURE: The patient was taken to the PACU. The patient was sedated by Anesthesiology. A transesophageal probe was placed into the distal esophagus and stomach. Echocardiographic images were obtained. The transesophageal probe was removed. FINDINGS: 1. Mild decrease in left ventricular systolic function. 2. Left atrial enlargement. 3. Normal mitral and aortic valves. 4. Mild aortic regurgitation. 5. Mild mitral regurgitation. 6. Mild tricuspid regurgitation. 7. Spontaneous contrast is noted with preformed thrombus in the left atrial appendage. 8. Atherosclerotic debris in the descending aorta. IMPRESSION: Mild mitral regurgitation with preformed thrombus noted in the left atrial appendage. Job ID: [id number] [facility]
[2019-09-29] MEDS: Rivaroxaban 10 MG TAB PO SCH (17:57)
--- NOTE | 2019-09-29 22:09 | PRG ---
DATE OF SERVICE: 09/29/2019 SUBJECTIVE: Mr. Yanez remains in his room on the surgical floor. He is now postoperative day #5 from laparoscopic low anterior resection. He was doing well from a surgical standpoint and ready for discharge on postoperative day #3 and his discharge was postponed secondary to urinary tract infection. This has been appropriately treated with antibiotics and is no longer concerned. He then developed a cardiac arrhythmia with a pause of few seconds. For this reason, Cardiology involvement was requested again. Today, a transesophageal echocardiogram was performed. This revealed thrombus in the left atrial appendage. It is noted that his Xarelto was restarted yesterday and he was on Lovenox prior to that. He was again cleared for discharge until he had a bloody bowel movement, not certain of the volume of this. However, repeat hemoglobin was checked and found that his hemoglobin had dropped from 9.0 on the to 8.2 today. His differential is unremarkable. His white blood cell count is normal. It was decided to continue observation as an inpatient until we are sure that he is not having ongoing bleeding issues. He tells me he is eating well with no nausea or vomiting and denies any abdominal pain. His final pathology revealed that he had a T3 N1 rectal cancer with margins of resection clear. Maximum size of the tumor was 3.2 cm and 2 of 16 lymph nodes were positive for metastatic carcinoma. OBJECTIVE: VITAL SIGNS: On examination, he is afebrile. Vital signs within normal limits with a pulse of 82 and blood pressure of 131/78. LUNGS: Clear to auscultation. ABDOMEN: Soft, nontender, nondistended with nicely healed incisions. LABORATORY DATA: As mentioned, his hemoglobin is 8.2 with a white blood cell count of 6 and a platelet count of 192. Chemistries obtained today reveals an essentially normal basic metabolic panel. His blood sugars are well controlled. ASSESSMENT: He continues to do well from a surgical standpoint. I am not certain if the rectal bleeding that was reported is significant or not. Repeat labs have been ordered for tomorrow. He remains on Xarelto at this time for anticoagulation. Job ID: [id number]
[2019-09-29] MEDS: Atorvastatin Calcium 40 MG TAB PO SCH (22:11)
[2019-09-30] MEDS: Acetaminophen 500 MG TAB PO SCH ×4 (03:48→17:18)
[2019-09-30 04:16] LABS: #Basophils 0.1 thou/uL (0.0-0.2); #Eosinphils 0.3 thou/uL (0.0-0.7); #Monocytes 0.7 thou/uL (0.11-0.59); #Neutrophils 3.7 thou/uL (1.40-6.50); %Basophils 1.2 % (0.0-1.0); %Eosinophils 4.7 % (0.0-10.0); %Lymphocytes 17.9 % (21.0-51.0); %Monocytes 12.9 % (0.0-10.0); %Neutrophils 63.4 % (42.0-75.0); Hemoglobin 8.3 g/dL (14.0-18.0); Mean Corpuscular HGB CONC 32.8 g/dL (32.0-36.0); Mean Corpuscular Hemoglobin 28.6 pg (27.0-31.0); Mean Corpuscular Volume 87.2 fL (78.0-98.0); Mean Platelet Volume 11.1 fL (7.4-10.4); Platelet Count 201 thou/uL (130-400); RBC Distribution Width 20.8 % (11.5-14.5); Red Blood Cell (RBC) Count 2.91 mill/uL (4.70-6.10); White Blood Cell (WBC) Count 5.8 thou/uL (4.8-10.8)
[2019-09-30 04:34] LABS: Anion Gap 12 mmol/L (10-20); BUN (Urea Nitrogen) 16 mg/dL (8.4-25.7); Calc. Creatinine Clearance 72 mL/min (70-130); Calcium 8.5 mg/dL (7.8-10.44); Carbon Dioxide 25 mmol/L (23-31); Chloride 106 mmol/L (98-107); Estimated GFR-MDRD 53; Glucose 101 mg/dL (80-115); Potassium 4.1 mmol/L (3.5-5.1); Sodium 139 mmol/L (136-145)
--- NOTE | 2019-09-30 07:41 | PDOC.HOSPP ---
- Subjective Encounter Date: 09/30/19 (f/u GI bleed) Encounter Time: 07:40 Subjective: Mr. Yanez is a 69 y/o male admitted for GI bleed. During this hospitalization he was diagnosed with colon adenocarcinoma and he underwent resection. Post- operatively, he was restarted on Xarelto for atrial fibrillation, underwent CARMELA and was found to have a left atrial thrombus. Cardioversion was not performed. The plan was for discharge yesterday afternoon, however the patient developed rectal bleeding. Since onset of rectal bleeding, he's had approx 5 more episodes and states the last one was primarily blood. he denies any pain/n/v/cp/sob. He reports the leg & scrotal edema are improved. - Objective Vital Signs & Weight: Vital Signs (12 hours) Temp Pulse Resp BP BP Pulse Ox 09/30/19 03:09 98.6 F 75 20 134/68 97 09/29/19 20:19 99.0 F 82 18 131/78 97 09/29/19 20:00 97 Weight Weight 213 lb 3.2 oz I&O: 09/29/19 09/30/19 10/01/19 06:59 06:59 06:59 Intake Total 860 960 Output Total 2650 700 Balance -1790 260 Result Diagrams: 09/30/19 13:50 09/30/19 03:50 Additional Labs: Accuchecks 09/30/19 09/29/19 09/29/19 05:33 20:50 16:41 POC Glucose 107 133 H 118 H EKG Reviewed by me: Yes (tele - a fib 70-80's) Hospitalist ROS - Medication Medications: Active Medications Generic Name Dose Route Start Last Admin Trade Name Freq PRN Reason Stop Dose Admin Acetaminophen 1,000 mg 09/24/19 18:00 09/30/19 06:33 Tylenol PO Not Given Q6HR MARIO Amiodarone HCl 200 mg 09/22/19 09:00 09/29/19 11:23 Cordarone PO 200 mg DAILY MARIO Administration Aspirin 81 mg 09/25/19 09:00 09/29/19 11:22 Ecotrin PO 81 mg DAILY MARIO Administration Atorvastatin Calcium 80 mg 09/22/19 21:00 09/29/19 22:11 Lipitor PO 80 mg HS MARIO Administration Carvedilol 3.125 mg 09/22/19 08:00 09/29/19 17:57 Coreg PO 3.125 mg BID-WM MARIO Administration Cholecalciferol 2,000 units 09/27/19 09:00 09/29/19 11:22 Vitamin D3 PO 2,000 units DAILY MARIO Administration Fenofibrate 48 mg 09/22/19 09:00 09/29/19 11:23 Tricor PO 48 mg DAILY MARIO Administration Ferrous Sulfate 325 mg 09/27/19 08:00 09/29/19 11:23 Feosol PO 325 mg QAM-WM MARIO Administration Furosemide 40 mg 09/29/19 07:30 09/29/19 11:23 Lasix PO 40 mg DAILY-AC MARIO Administration Gabapentin 300 mg 09/22/19 09:00 09/29/19 22:11 Neurontin PO 300 mg BID MARIO Administration Ceftriaxone Sodium 1 gm/ 100 mls @ 200 mls/hr 09/26/19 20:00 09/29/19 11:24 Sodium Chloride IVPB 100 mls Q24HR MARIO Administration Insulin Human Lispro 0 units 09/22/19 05:23 09/24/19 20:31 Humalog SC 2 unit .BEDTIME SLIDING SC PRN Administration Bedtime Correctional Scale Lisinopril 5 mg 09/27/19 09:00 09/29/19 11:24 Zestril PO 5 mg DAILY MARIO Administration Metformin HCl 500 mg 09/27/19 08:00 09/29/19 17:57 Glucophage PO 500 mg BID-WM MARIO Administration Pantoprazole Sodium 40 mg 09/25/19 09:00 09/29/19 11:23 Protonix PO 40 mg DAILY MARIO Administration Rivaroxaban 20 mg 09/28/19 18:00 09/29/19 17:57 Xarelto PO 20 mg 1800 MARIO Administration Sodium Chloride 10 ml 09/22/19 09:00 09/29/19 22:11 Flush - Normal Saline IVF 10 ml Q12HR MARIO Administration - Exam General Appearance: NAD Heart: no murmur, irregular Respiratory: CTAB, no wheezes, no rales, no ronchi Gastrointestinal: soft, non-tender, non-distended, normal bowel sounds Extremities: no cyanosis, no clubbing, no edema Extremities - other findings: 1+ LE edema Psychiatric: normal affect Hosp A/P (1) Colon cancer Code(s): C18.9 - MALIGNANT NEOPLASM OF COLON, UNSPECIFIED Status: Resolved Qualifiers: Colon location: unspecified part of colon Qualified Code(s): C18.9 - Malignant neoplasm of colon, unspecified (2) Anemia Code(s): D64.9 - ANEMIA, UNSPECIFIED Status: Acute Qualifiers: Other causes of anemia: acute posthemorrhagic (3) Coronary artery disease Code(s): I25.10 - ATHSCL HEART DISEASE OF [place] CORONARY ARTERY W/O ANG PCTRS Status: Chronic Qualifiers: Coronary Disease-Associated Artery/Lesion type: bypass graft (4) Diabetes mellitus Code(s): E11.9 - TYPE 2 DIABETES MELLITUS WITHOUT COMPLICATIONS Status: Chronic Qualifiers: Diabetes mellitus type: type 2 (5) Afib Code(s): I48.91 - UNSPECIFIED ATRIAL FIBRILLATION Status: Chronic Qualifiers: Atrial fibrillation type: unspecified Qualified Code(s): I48.91 - Unspecified atrial fibrillation (6) GI bleed Code(s): K92.2 - GASTROINTESTINAL HEMORRHAGE, UNSPECIFIED Status: Resolved (7) UTI (urinary tract infection) Status: Acute Qualifiers: Urinary tract infection type: acute cystitis Hematuria presence: without hematuria Qualified Code(s): N30.00 - Acute cystitis without hematuria (8) ALKA (acute kidney injury) Code(s): N17.9 - ACUTE KIDNEY FAILURE, UNSPECIFIED Status: Resolved (9) Left atrial thrombus Code(s): I51.3 - INTRACARDIAC THROMBOSIS, NOT ELSEWHERE CLASSIFIED Status: Acute - Plan New rectal bleeding in a pt on Xarelto for a fib with left atrial thrombus by CARMELA. Continuing Xarelto due to risk of stroke - monitoring bleeding, type & screen performed today and transfuse to maintain >7. Appreciate guidance from Cardiology and Gen Surgery. LE/scrotal edema - improved - continue home dosing of lasix UTI - has received 4 doses of Rocephin - will d/c after the 5th dose. ALKA resolved. Pt is s/p colon resection 09/23 for adenocarcinoma continue SSI dvt prophy - Xarelto for stroke risk reduction gi prophy - protonix code status full Anticipated length of stay based on Cardiology and General Surgery recommendations after procedure.
[2019-09-30] MEDS: Gabapentin 300 MG CAP PO SCH ×2 (08:35→21:36)
[2019-09-30] MEDS: Lisinopril 5 MG TAB PO SCH (08:36)
[2019-09-30] MEDS: Amiodarone 200 MG TAB PO SCH (08:36)
[2019-09-30] MEDS: Carvedilol 3.125 MG TAB PO SCH ×2 (08:36→17:17)
[2019-09-30] MEDS: Furosemide 40 MG TAB PO SCH (08:36)
[2019-09-30] MEDS: metFORMIN 500 MG TAB PO SCH ×2 (08:36→17:17)
[2019-09-30] MEDS: Aspirin 81 mg Enteric Coated Tablet PO SCH (08:36)
[2019-09-30] MEDS: Ferrous Sulfate 325 MG TAB PO SCH (08:36)
[2019-09-30] MEDS: Fenofibrate 48 MG TAB PO SCH (08:37)
[2019-09-30] MEDS: Cholecalciferol 1,000 UNITS (25 MCG) TAB PO SCH (11:08)
[2019-09-30 14:09] LABS: Hemoglobin 8.3 g/dL (14.0-18.0)
[2019-09-30] MEDS: Rivaroxaban 10 MG TAB PO SCH (17:17)
--- NOTE | 2019-09-30 18:03 | PRG ---
DATE OF SERVICE: 09/30/2019 SUBJECTIVE: Mr. Yanez remains in his room on the telemetry floor. He is postoperative day #6 from laparoscopic low anterior resection. He continues to have issues, which prolonged his stay. Yesterday, he had some bloody bowel movements and it was elected to observe him to make sure he remains stable. He has been hemodynamically stable. His hemoglobin has actually gone up from yesterday to today. It was 8.2 yesterday and it is 8.3 today. He tells me that he has had five fairly watery bowel movements this morning. He tells me he is tolerating his diet, drinking fine. He still denies pain. OBJECTIVE: VITAL SIGNS: He is afebrile. Pulse is 76, blood pressure 130/75. LUNGS: Clear to auscultation. ABDOMEN: Soft, nontender, nondistended. Incisions are nicely healed and nontender. RECTAL: Exam was performed. There is no focal tenderness. I believe I can palpate the anastomosis. There is some old-appearing blood on my finger when I withdraw it. I do not see any evidence of bright red bleed. ASSESSMENT: Although he appears stable, I am a little concerned about the diarrhea and the blood per rectum. Not certain if this is new or old bleeding. I would recommend we keep him in the hospital at least another day to make sure he is stable. I have encouraged him to drink plenty of p.o. fluids to avoid kidney injury like he had after surgery. I will check his stool for Clostridium difficile today. I will also discontinue his IV antibiotics. He is on this for his urinary tract infection and this should have long since cleared. He has been voiding on his own without the Cortez catheter in. Discharge tomorrow will depend upon the status of his stool studies, his bowel movements, and his hemoglobin level in the morning. Job ID: [id number]
[2019-09-30] MEDS: Atorvastatin Calcium 40 MG TAB PO SCH (21:36)
[2019-10-01] MEDS: Acetaminophen 500 MG TAB PO SCH ×5 (00:40→23:27)
[2019-10-01 04:56] LABS: #Basophils 0.1 thou/uL (0.0-0.2); #Eosinphils 0.3 thou/uL (0.0-0.7); #Lymphocytes 1.3 thou/uL (1.20-3.40); #Monocytes 0.7 thou/uL (0.11-0.59); #Neutrophils 3.7 thou/uL (1.40-6.50); %Basophils 1.5 % (0.0-1.0); %Eosinophils 5.3 % (0.0-10.0); %Lymphocytes 20.7 % (21.0-51.0); %Monocytes 10.9 % (0.0-10.0); %Neutrophils 61.5 % (42.0-75.0); Hemoglobin 7.3 g/dL (14.0-18.0); Mean Corpuscular HGB CONC 33.7 g/dL (32.0-36.0); Mean Corpuscular Hemoglobin 29.2 pg (27.0-31.0); Mean Corpuscular Volume 86.8 fL (78.0-98.0); Mean Platelet Volume 10.2 fL (7.4-10.4); Platelet Count 212 thou/uL (130-400); RBC Distribution Width 20.8 % (11.5-14.5); Red Blood Cell (RBC) Count 2.51 mill/uL (4.70-6.10); White Blood Cell (WBC) Count 6.1 thou/uL (4.8-10.8)
[2019-10-01 05:23] LABS: Anion Gap 10 mmol/L (10-20); BUN (Urea Nitrogen) 15 mg/dL (8.4-25.7); Calc. Creatinine Clearance 79 mL/min (70-130); Calcium 8.6 mg/dL (7.8-10.44); Carbon Dioxide 28 mmol/L (23-31); Chloride 103 mmol/L (98-107); Estimated GFR-MDRD 59; Glucose 107 mg/dL (80-115); Potassium 3.8 mmol/L (3.5-5.1); Sodium 137 mmol/L (136-145)
[2019-10-01] MEDS: Cholecalciferol 1,000 UNITS (25 MCG) TAB PO SCH (07:57)
[2019-10-01] MEDS: Ferrous Sulfate 325 MG TAB PO SCH (07:57)
[2019-10-01] MEDS: Aspirin 81 mg Enteric Coated Tablet PO SCH (07:57)
[2019-10-01] MEDS: Lisinopril 5 MG TAB PO SCH (07:57)
[2019-10-01] MEDS: Furosemide 40 MG TAB PO SCH (07:58)
[2019-10-01] MEDS: metFORMIN 500 MG TAB PO SCH ×2 (07:58→17:56)
[2019-10-01] MEDS: Fenofibrate 48 MG TAB PO SCH (07:58)
[2019-10-01] MEDS: Gabapentin 300 MG CAP PO SCH ×2 (07:58→21:15)
[2019-10-01] MEDS: Carvedilol 3.125 MG TAB PO SCH ×2 (07:58→17:56)
[2019-10-01] MEDS: Amiodarone 200 MG TAB PO SCH (07:58)
--- NOTE | 2019-10-01 08:28 | PDOC.HOSPP ---
- Subjective Encounter Date: 10/01/19 Encounter Time: 10:00 Subjective: Patient without further rectal bleeding since yesterday. No abdominal pain. No N /V. Ambulating well. - Objective Vital Signs & Weight: Vital Signs (12 hours) Temp Pulse Resp BP BP Pulse Ox 10/01/19 07:53 98.4 F 74 12 147/66 H 96 10/01/19 03:07 98.4 F 68 18 116/59 L 95 10/01/19 00:15 97.7 F 73 12 119/61 97 09/30/19 21:35 99.4 F 79 14 124/65 99 Weight Admit Weight 216 lb Weight 224 lb 14.4 oz I&O: 09/30/19 10/01/19 10/02/19 06:59 06:59 06:59 Intake Total 960 1320 Output Total 700 3 Balance 260 1317 Result Diagrams: 10/01/19 04:29 10/01/19 04:29 Additional Labs: Accuchecks 10/01/19 09/30/19 09/30/19 05:43 20:44 16:39 POC Glucose 128 H 124 H 131 H 09/30/19 10:42 POC Glucose 128 H Hospitalist ROS - Review of Systems Constitutional: denies: fever, chills Respiratory: denies: cough, shortness of breath Cardiovascular: denies: chest pain, palpitations Gastrointestinal: denies: nausea, vomiting, abdominal pain, diarrhea, constipation, hematochezia - Medication Medications: Active Medications Generic Name Dose Route Start Last Admin Trade Name Freq PRN Reason Stop Dose Admin Acetaminophen 1,000 mg 09/24/19 18:00 10/01/19 07:57 Tylenol PO Not Given Q6HR [facility] Amiodarone HCl 200 mg 09/22/19 09:00 10/01/19 07:58 Cordarone PO 200 mg DAILY MARIO Administration Aspirin 81 mg 09/25/19 09:00 10/01/19 07:57 Ecotrin PO 81 mg DAILY MARIO Administration Atorvastatin Calcium 80 mg 09/22/19 21:00 09/30/19 21:36 Lipitor PO 80 mg HS MARIO Administration Carvedilol 3.125 mg 09/22/19 08:00 10/01/19 07:58 Coreg PO 3.125 mg BID-WM MARIO Administration Cholecalciferol 2,000 units 09/27/19 09:00 10/01/19 07:57 Vitamin D3 PO 2,000 units DAILY MARIO Administration Fenofibrate 48 mg 09/22/19 09:00 10/01/19 07:58 Tricor PO 48 mg DAILY MARIO Administration Ferrous Sulfate 325 mg 09/27/19 08:00 10/01/19 07:57 Feosol PO 325 mg QAM-WM MARIO Administration Furosemide 40 mg 09/29/19 07:30 10/01/19 07:58 Lasix PO 40 mg DAILY-AC MARIO Administration Gabapentin 300 mg 09/22/19 09:00 10/01/19 07:58 Neurontin PO 300 mg BID MARIO Administration Insulin Human Lispro 0 units 09/22/19 05:23 09/24/19 20:31 Humalog SC 2 unit .BEDTIME SLIDING SC PRN Administration Bedtime Correctional Scale Lisinopril 5 mg 09/27/19 09:00 10/01/19 07:57 Zestril PO 5 mg DAILY MARIO Administration Metformin HCl 500 mg 09/27/19 08:00 10/01/19 07:58 Glucophage PO 500 mg BID-WM MARIO Administration Pantoprazole Sodium 40 mg 09/25/19 09:00 10/01/19 07:58 Protonix PO 40 mg DAILY MARIO Administration Rivaroxaban 20 mg 09/28/19 18:00 09/30/19 17:17 Xarelto PO 20 mg 1800 MARIO Administration Sodium Chloride 10 ml 09/22/19 09:00 10/01/19 07:59 Flush - Normal Saline IVF 10 ml Q12HR MARIO Administration - Exam General Appearance: NAD, awake alert ENT: moist mucosa Heart: RRR, no murmur, no gallops, no rubs Respiratory: CTAB, no wheezes, no rales, no ronchi Gastrointestinal: soft, non-tender, non-distended, normal bowel sounds Psychiatric: normal affect, normal behavior, A&O x 3 Hosp A/P (1) Colon cancer Code(s): C18.9 - MALIGNANT NEOPLASM OF COLON, UNSPECIFIED Status: Resolved Qualifiers: Colon location: unspecified part of colon Qualified Code(s): C18.9 - Malignant neoplasm of colon, unspecified Plan: s/p resection (2) Anemia Code(s): D64.9 - ANEMIA, UNSPECIFIED Status: Acute Qualifiers: Other causes of anemia: acute posthemorrhagic (3) GI bleed Code(s): K92.2 - GASTROINTESTINAL HEMORRHAGE, UNSPECIFIED Status: Resolved (4) Afib Code(s): I48.91 - UNSPECIFIED ATRIAL FIBRILLATION Status: Chronic Qualifiers: Atrial fibrillation type: unspecified Qualified Code(s): I48.91 - Unspecified atrial fibrillation Plan: with atrial clot (5) Coronary artery disease Code(s): I25.10 - ATHSCL HEART DISEASE OF [place] CORONARY ARTERY W/O ANG PCTRS Status: Chronic Qualifiers: Coronary Disease-Associated Artery/Lesion type: bypass graft (6) Diabetes mellitus Code(s): E11.9 - TYPE 2 DIABETES MELLITUS WITHOUT COMPLICATIONS Status: Chronic Qualifiers: Diabetes mellitus type: type 2 (7) Left atrial thrombus Code(s): I51.3 - INTRACARDIAC THROMBOSIS, NOT ELSEWHERE CLASSIFIED Status: Acute (8) UTI (urinary tract infection) Status: Resolved Qualifiers: Urinary tract infection type: acute cystitis Hematuria presence: without hematuria Qualified Code(s): N30.00 - Acute cystitis without hematuria (9) ALKA (acute kidney injury) Code(s): N17.9 - ACUTE KIDNEY FAILURE, UNSPECIFIED Status: Resolved - Plan Patient with diarrhea and bloody bowel movements yesterday, none since Hemoglobin did drop one point today Will need to observe in hospital until H/H stable and no further significant bleeding, recheck in the morning. General surgery following- appreciate their assistance. If H/H stable tomorrow morning and no more bleeding can probably go home. If H/H drops further then will need sigmoidoscopy. Dr. Good prepping patient for procedure tomorrow in case this happens.
--- NOTE | 2019-10-01 12:37 | PRG ---
DATE OF SERVICE: 10/01/2019 SUBJECTIVE: I was asked to re-evaluate Mr. Yanez with regard to rectal bleeding. Apparently, he had been doing well postoperatively and then had to be started back on his Eliquis as he has a clot in his heart. He has had a little bit of bleeding, apparently 5 loose stools yesterday. Clostridium difficile was checked and was negative. His hemoglobin has trickle down from 9.6 on the to 8.3 on the and then 7.3 this morning. The patient states his last passage of bowel movement with blood was yesterday afternoon. He has had no bowel movements today. He just had a full lunch of regular food. He denies any abdominal pain. Dr. Hallman reports to me that he did a rectal exam yesterday, and there was a little bit of old clot and anastomosis which seemed intact. PHYSICAL EXAMINATION: VITAL SIGNS: Temperature 98, pulse 74, blood pressure 147/66. ABDOMEN: Soft and nontender. RECTAL: Not repeated. LUNGS: Clear. GENERAL: He is resting comfortably in bed. LABORATORY DATA: White count 6.1, hemoglobin 7.3, platelet count 212. Basic metabolic profile normal with BUN and creatinine are 15 and 1.2. ASSESSMENT: Lower gastrointestinal bleeding, likely anastomotic related to his anticoagulation, it maybe stopping now. His hemoglobin has dropped. PLAN: Flexible sigmoidoscopy tomorrow if bleeding persists. He will be made n.p.o. after midnight. I placed him on a liquid diet today. I placed him on the schedule for tomorrow if there is an acute hemorrhage we could intervene more urgently. We will not stop any anticoagulation before this procedure. Job ID: [id number] [facility]
--- NOTE | 2019-10-01 12:59 | PRG ---
DATE OF SERVICE: 10/01/2019 SUBJECTIVE: Mr. Yanez is postoperative day #7 from a laparoscopic low anterior resection. He remains here on the telemetry floor. He has no complaints. He is eating well. He had several bowel movements yesterday, but tells me he has not had a bowel movement since early yesterday afternoon. He denies weakness or dizziness. He is sitting up in his chair when I examined him. I reviewed with him his pathology results yesterday, which revealed that his cancer is T3 N1 and that he could require chemotherapy. This will be determined by Oncology after discharge. OBJECTIVE: VITAL SIGNS: He is afebrile, pulse 75, blood pressure 130/53. LUNGS: Clear to auscultation. ABDOMEN: Soft, nontender, nondistended with well-healed incisions. LABORATORY DATA: His hemoglobin has dropped from 8.3 yesterday to 7.3 today. His chemistry panel is unremarkable. ASSESSMENT: He appears to be stable. I am uncertain if he is oozing a little bit from being on Xarelto or not. In light of his drop of hemoglobin on top of his previous severe anemia, I agree with hospitalist recommendation to observe him in the hospital for another day. If his hemoglobin continues to drop, then he will require endoscopy. I have already spoke with Dr. Good about this who will make the patient n.p.o. in preparation for an endoscopy. If his hemoglobin does not drop and he remained stable, then he should be ready for discharge home tomorrow. Job ID: [id number]
[2019-10-01] MEDS: Rivaroxaban 10 MG TAB PO SCH (17:56)
[2019-10-01] MEDS: Atorvastatin Calcium 40 MG TAB PO SCH (21:15)
[2019-10-02 04:54] LABS: #Basophils 0.1 thou/uL (0.0-0.2); #Eosinphils 0.4 thou/uL (0.0-0.7); #Lymphocytes 1.4 thou/uL (1.20-3.40); #Monocytes 0.5 thou/uL (0.11-0.59); #Neutrophils 3.7 thou/uL (1.40-6.50); %Basophils 1.1 % (0.0-1.0); %Eosinophils 7.3 % (0.0-10.0); %Lymphocytes 22.6 % (21.0-51.0); %Monocytes 8.7 % (0.0-10.0); %Neutrophils 60.3 % (42.0-75.0); Mean Corpuscular HGB CONC 31.3 g/dL (32.0-36.0); Mean Corpuscular Hemoglobin 27.1 pg (27.0-31.0); Mean Corpuscular Volume 86.4 fL (78.0-98.0); Mean Platelet Volume 10.1 fL (7.4-10.4); Platelet Count 240 thou/uL (130-400); RBC Distribution Width 20.7 % (11.5-14.5); Red Blood Cell (RBC) Count 2.58 mill/uL (4.70-6.10); White Blood Cell (WBC) Count 6.1 thou/uL (4.8-10.8)
[2019-10-02] MEDS: Carvedilol 3.125 MG TAB PO SCH ×2 (05:49→16:56)
[2019-10-02] MEDS: Acetaminophen 500 MG TAB PO SCH ×4 (06:06→23:59)
[2019-10-02] MEDS: metFORMIN 500 MG TAB PO SCH ×2 (08:18→16:56)
[2019-10-02] MEDS: Cholecalciferol 1,000 UNITS (25 MCG) TAB PO SCH (08:22)
[2019-10-02] MEDS: Furosemide 40 MG TAB PO SCH (08:23)
[2019-10-02] MEDS: Gabapentin 300 MG CAP PO SCH ×2 (08:23→20:43)
[2019-10-02] MEDS: Ferrous Sulfate 325 MG TAB PO SCH (08:23)
[2019-10-02] MEDS: Amiodarone 200 MG TAB PO SCH (08:23)
[2019-10-02] MEDS: Lisinopril 5 MG TAB PO SCH (08:23)
[2019-10-02] MEDS: Fenofibrate 48 MG TAB PO SCH (08:23)
--- NOTE | 2019-10-02 11:43 | PRG ---
DATE OF SERVICE: 10/02/2019 SUBJECTIVE: Mr. Yanez is postoperative day #8, following his laparoscopic low anterior resection of rectal cancer. He had T2 N1 disease. He remains here on the telemetry floor. He has no complaints. He is eating well. Bowel function is good and he is urinating well. He does note that the last couple of bowel movements he has had has still been red in color. His hemoglobin has drifted downward slowly from the 28th when it was 9.0. Yesterday, it was 7.3 and today it is 7.0. His white blood cell count differential is normal. OBJECTIVE: VITAL SIGNS: He is afebrile. Vital signs are normal. LUNGS: Clear to auscultation. ABDOMEN: Soft and nontender. Incisions are very well healed and he has excellent bowel sounds. ASSESSMENT: The patient who has unexplained postoperative bleeding/oozing following his low anterior resection. He has course on Xarelto and this could contribute to it, but I still would not expect this bleeding to persist after surgery. Dr. Good has seen him and has him scheduled for a colonoscopy today to evaluate. I am not certain that I will have to look at much more than the anastomosis, which is a few inches up into the rectum. He is being transfused with 1 unit of blood and another CBC was ordered for tomorrow. Job ID: [id number]
[2019-10-02] MEDS ORDERED: Potassium Chloride 20 MEQ TAB PO SCH (12:00)
[2019-10-02] MEDS ORDERED: Furosemide 40 MG/4 ML VIAL SLOW IVP SCH (12:00)
--- NOTE | 2019-10-02 12:37 | PDOC.HOSPP ---
- Subjective Encounter Date: 10/02/19 Subjective: Patient seen and examined bedside this morning denying any chest pain shortness of breath nausea vomiting or abdominal bleeding however still reporting some blood per stool is going for another sigmoidoscopy by Dr. Pickett today currently n.p.o. - Objective Vital Signs & Weight: Vital Signs (12 hours) Temp Pulse Pulse Resp BP BP BP 10/02/19 10:17 97.8 F 68 16 118/65 10/02/19 10:01 98.0 F 72 18 115/67 10/02/19 08:00 98.4 F 69 18 117/60 10/02/19 03:44 98.0 F 90 20 114/64 Pulse Ox 10/02/19 10:17 98 10/02/19 10:01 96 10/02/19 08:00 96 10/02/19 03:44 94 L Weight Admit Weight 216 lb Weight 217 lb 8 oz I&O: 10/01/19 10/02/19 10/03/19 06:59 06:59 06:59 Intake Total 1320 1500 0 Output Total 3 Balance 1317 1500 0 Result Diagrams: 10/02/19 03:54 10/01/19 04:29 Additional Labs: Accuchecks 10/02/19 10/02/19 10/01/19 11:13 05:56 19:47 POC Glucose 111 H 112 H 120 H 10/01/19 17:14 POC Glucose 156 H Hospitalist ROS - Medication Medications: Active Medications Generic Name Dose Route Start Last Admin Trade Name Dannq PRN Reason Stop Dose Admin Acetaminophen 1,000 mg 09/24/19 18:00 10/02/19 06:06 Tylenol PO Not Given Q6HR MARIO Amiodarone HCl 200 mg 09/22/19 09:00 10/02/19 08:23 Cordarone PO 200 mg DAILY MARIO Administration Aspirin 81 mg 09/25/19 09:00 10/01/19 07:57 Ecotrin PO 81 mg DAILY MARIO Administration Atorvastatin Calcium 80 mg 09/22/19 21:00 10/01/19 21:15 Lipitor PO 80 mg HS MARIO Administration Carvedilol 3.125 mg 09/22/19 08:00 10/02/19 05:49 Coreg PO 3.125 mg BID-WM MARIO Administration Cholecalciferol 2,000 units 09/27/19 09:00 10/02/19 08:22 Vitamin D3 PO 2,000 units DAILY MARIO Administration Fenofibrate 48 mg 09/22/19 09:00 10/02/19 08:23 Tricor PO 48 mg DAILY MARIO Administration Ferrous Sulfate 325 mg 09/27/19 08:00 10/02/19 08:23 Feosol PO 325 mg QAM-WM MARIO Administration Furosemide 40 mg 09/29/19 07:30 10/02/19 08:23 Lasix PO 40 mg DAILY-AC MARIO Administration Gabapentin 300 mg 09/22/19 09:00 10/02/19 08:23 Neurontin PO 300 mg BID MARIO Administration Insulin Human Lispro 0 units 09/22/19 05:23 09/24/19 20:31 Humalog SC 2 unit .BEDTIME SLIDING SC PRN Administration Bedtime Correctional Scale Lisinopril 5 mg 09/27/19 09:00 10/02/19 08:23 Zestril PO 5 mg DAILY MARIO Administration Metformin HCl 500 mg 09/27/19 08:00 10/02/19 08:18 Glucophage PO Not Given BID-[facility] Pantoprazole Sodium 40 mg 09/25/19 09:00 10/02/19 08:23 Protonix PO 40 mg DAILY MARIO Administration Rivaroxaban 20 mg 09/28/19 18:00 10/01/19 17:56 Xarelto PO 20 mg 1800 MARIO Administration Sodium Chloride 10 ml 09/22/19 09:00 10/02/19 08:24 Flush - Normal Saline IVF 10 ml Q12HR MARIO Administration - Exam General Appearance: NAD, awake alert Eye: PERRL, anicteric sclera ENT: normocephalic atraumatic, no oropharyngeal lesions Neck: supple, symmetric Heart: RRR, no murmur Respiratory: CTAB, no wheezes Gastrointestinal: soft, non-tender Extremities: no cyanosis Musculoskeletal: normal tone Psychiatric: normal affect Hosp A/P (1) Anemia Code(s): D64.9 - ANEMIA, UNSPECIFIED Status: Acute Qualifiers: Other causes of anemia: acute posthemorrhagic (2) Left atrial thrombus Code(s): I51.3 - INTRACARDIAC THROMBOSIS, NOT ELSEWHERE CLASSIFIED Status: Acute (3) Afib Code(s): I48.91 - UNSPECIFIED ATRIAL FIBRILLATION Status: Chronic Qualifiers: Atrial fibrillation type: unspecified Qualified Code(s): I48.91 - Unspecified atrial fibrillation (4) Coronary artery disease Code(s): I25.10 - ATHSCL HEART DISEASE OF [place] CORONARY ARTERY W/O ANG PCTRS Status: Chronic Qualifiers: Coronary Disease-Associated Artery/Lesion type: bypass graft - Plan Patient patient still complaining of some watery bloody diarrhea hemoglobin down to 7 this morning he has been ordered 1 unit PRBC Patient is going for igmoidoscopy. By Dr. Good today will follow and further recommendations Continue monitor CBC transfuse if needed Continue the rest of medications supportive care Monitor electrolytes replace as needed Depending on clinical improvement and if hemoglobin stable and was cleared by GI hopefully home in the next 1 to 2 days
[2019-10-02] MEDS ORDERED: Ondansetron HCl/PF 4 MG/2 ML Vial IVP PRN (13:20)
[2019-10-02] MEDS ORDERED: Promethazine HCl 25 MG/ML VIAL SLOW IVP PRN (13:20)
[2019-10-02] MEDS ORDERED: Promethazine HCl 25 MG/ML VIAL IM PRN (13:20)
[2019-10-02] MEDS: Aspirin 81 mg Enteric Coated Tablet PO SCH (13:53)
[2019-10-02 13:58] LABS: #Basophils 0.1 thou/uL (0.0-0.2); #Eosinphils 0.4 thou/uL (0.0-0.7); #Lymphocytes 1.1 thou/uL (1.20-3.40); #Monocytes 0.5 thou/uL (0.11-0.59); #Neutrophils 4.5 thou/uL (1.40-6.50); %Basophils 1.5 % (0.0-1.0); %Eosinophils 6.7 % (0.0-10.0); %Lymphocytes 16.1 % (21.0-51.0); %Monocytes 7.9 % (0.0-10.0); %Neutrophils 67.9 % (42.0-75.0); Hemoglobin 8.9 g/dL (14.0-18.0); Mean Corpuscular HGB CONC 32.4 g/dL (32.0-36.0); Mean Corpuscular Hemoglobin 28.1 pg (27.0-31.0); Mean Corpuscular Volume 86.7 fL (78.0-98.0); Mean Platelet Volume 9.3 fL (7.4-10.4); Platelet Count 274 thou/uL (130-400); RBC Distribution Width 19.9 % (11.5-14.5); Red Blood Cell (RBC) Count 3.17 mill/uL (4.70-6.10); White Blood Cell (WBC) Count 6.6 thou/uL (4.8-10.8)
[2019-10-02] MEDS ORDERED: Iron, Sodium Ferric Gluconate 250 MG in Sodium Chloride 0.9% 100 ML IVPB SCH (14:00)
--- NOTE | 2019-10-02 14:08 | OP ---
DATE OF PROCEDURE: 10/02/2019 PREPROCEDURE DIAGNOSES: 1. Recurrent lower gastrointestinal bleeding, likely from colo-colo anastomosis from colon cancer resection last week and the need for blood thinner secondary to cardiac clot. 2. He has had several transfusions and bright red blood per rectum. POSTPROCEDURE DIAGNOSES: There was normal healthy-appearing anastomosis. About 7 cm from the anorectal verge, there was some clot on the anastomosis at the 3 o'clock position, the clot was removed. There was no active bleeding there in that area. Clips were placed over the anastomosis on both sides and the area of the clot, where the clot had been. No bleeding was ongoing. No other bleeding sites were identified, although circumferentially, the anastomosis essentially has a small 2 to [address] around and that is what they look like after surgery. If he continues to bleed, one option would be to hold anticoagulation for 48 hours and then restart it. ANESTHESIA: TIVA. DESCRIPTION OF PROCEDURE: After the patient was informed of the risks, benefits, and possible complications of endoscopy including perforation, bleeding, reaction to medication, aspiration, informed consent was obtained. The patient was brought to the endoscopy suite, where he was sedated in gradual fashion. Once he was comfortable, rectal exam was performed. The endoscope was advanced into the anal canal, through the colon into the sigmoid region, where the previous anastomosis was noted. There was a little clot at the 12 o'clock position. This was initially clipped, was felt to be a visible vessel and I came off with no subsequent bleeding. The ulceration at the anastomosis which is typical after the surgery that was not large. It appears actually very thin, 2 mm across maybe. I think that if he has ensuing oozing, then this could probably stop with just holding anticoagulation for 24 to 48 hours. In any event, several clips were placed around the anastomosis at the site where the clot had been seen. There were no visible vessels, no pulsatile lesions, and no bleeding throughout the procedure. The scope was removed. The patient tolerated the procedure well. There were no complications. Job ID: [id number]
[2019-10-02 14:19] LABS: Anion Gap 12 mmol/L (10-20); BUN (Urea Nitrogen) 13 mg/dL (8.4-25.7); Calc. Creatinine Clearance 77 mL/min (70-130); Calcium 9.1 mg/dL (7.8-10.44); Carbon Dioxide 31 mmol/L (23-31); Chloride 101 mmol/L (98-107); Estimated GFR-MDRD 57; Glucose 96 mg/dL (80-115); Potassium 3.8 mmol/L (3.5-5.1); Sodium 140 mmol/L (136-145)
[2019-10-02] MEDS: Rivaroxaban 10 MG TAB PO SCH (16:56)
[2019-10-02] MEDS: Atorvastatin Calcium 40 MG TAB PO SCH (20:40)
[2019-10-02] MEDS: Docusate 100 MG CAP PO SCH (20:41)
[2019-10-03 04:46] LABS: #Basophils 0.1 thou/uL (0.0-0.2); #Eosinphils 0.5 thou/uL (0.0-0.7); #Lymphocytes 1.3 thou/uL (1.20-3.40); #Monocytes 0.7 thou/uL (0.11-0.59); %Basophils 1.2 % (0.0-1.0); %Eosinophils 6.7 % (0.0-10.0); %Lymphocytes 16.8 % (21.0-51.0); %Monocytes 8.7 % (0.0-10.0); %Neutrophils 66.7 % (42.0-75.0); Hemoglobin 8.1 g/dL (14.0-18.0); Mean Corpuscular Hemoglobin 28.7 pg (27.0-31.0); Mean Corpuscular Volume 86.8 fL (78.0-98.0); Mean Platelet Volume 9.7 fL (7.4-10.4); Platelet Count 249 thou/uL (130-400); RBC Distribution Width 19.9 % (11.5-14.5); Red Blood Cell (RBC) Count 2.81 mill/uL (4.70-6.10); White Blood Cell (WBC) Count 7.5 thou/uL (4.8-10.8)
[2019-10-03 04:59] LABS: Anion Gap 10 mmol/L (10-20); BUN (Urea Nitrogen) 13 mg/dL (8.4-25.7); Calc. Creatinine Clearance 74 mL/min (70-130); Calcium 8.8 mg/dL (7.8-10.44); Carbon Dioxide 31 mmol/L (23-31); Chloride 101 mmol/L (98-107); Estimated GFR-MDRD 54; Glucose 101 mg/dL (80-115); Potassium 3.9 mmol/L (3.5-5.1); Sodium 138 mmol/L (136-145)
[2019-10-03] MEDS: Acetaminophen 500 MG TAB PO SCH ×4 (05:37→23:52)
--- NOTE | 2019-10-03 09:17 | PRG ---
DATE OF SERVICE: 10/03/2019 SUBJECTIVE: Mr. Yanez remains in the hospital on the telemetry floor. He is postoperative day #9 following laparoscopic low anterior resection of rectal cancer. He had T2 N1 disease. He underwent colonoscopy yesterday per Dr. Good with finding of a clot at the colorectal anastomosis without active bleeding. Some clips were applied colonoscopically. Mr. Yanez still has no complaints. He tells me he is eating well, walking well, has no pain, and has no significant constitutional symptoms. He notes problems with his peripheral IV. OBJECTIVE: VITAL SIGNS: On examination, he is afebrile. Vital signs within normal limits. His blood pressure this morning is 108/59. LABORATORY DATA: White blood cell count of 7.5, hemoglobin of 8.1, platelet count of 249. His hemoglobin was 7.0 yesterday morning and apparently went up to 8.9 after a single unit transfusion. It would be more appropriate that his hemoglobin had gone up to 8.1. I suspect this is a correct number whereas 8.9 was probably a little high yesterday. ASSESSMENT: The patient is doing fine from a surgery standpoint. At this point, I would recommend discharge home. I would like to see him back in my office in a week. I will check a hemoglobin level at that point. If he does have significant continued bleeding issues, then I would plan to take him to the operating room and over-sew the anastomosis in a transrectal/transanal fashion. Job ID: [id number]
[2019-10-03] MEDS: Aspirin 81 mg Enteric Coated Tablet PO SCH (09:30)
[2019-10-03] MEDS: Cholecalciferol 1,000 UNITS (25 MCG) TAB PO SCH (09:30)
[2019-10-03] MEDS: Gabapentin 300 MG CAP PO SCH ×2 (09:30→20:42)
[2019-10-03] MEDS: Carvedilol 3.125 MG TAB PO SCH ×2 (09:31→18:20)
[2019-10-03] MEDS: Furosemide 40 MG TAB PO SCH (09:31)
[2019-10-03] MEDS: metFORMIN 500 MG TAB PO SCH ×2 (09:31→18:09)
[2019-10-03] MEDS: Fenofibrate 48 MG TAB PO SCH (09:31)
[2019-10-03] MEDS: Amiodarone 200 MG TAB PO SCH (09:31)
[2019-10-03] MEDS: Lisinopril 5 MG TAB PO SCH (09:31)
[2019-10-03] MEDS: Docusate 100 MG CAP PO SCH ×2 (09:32→20:42)
--- NOTE | 2019-10-03 11:09 | PDOC.HOSPP ---
- Subjective Encounter Date: 10/03/19 Encounter Time: 11:07 Subjective: Mr. Yanez was seen today in follow-up of colon cancer, GI- bleed and AFIB. He does not have any complaint. He would like to go home. He notes that the rectal bleeding is slowing down. - Objective Vital Signs & Weight: Vital Signs (12 hours) Temp Pulse Resp BP BP Pulse Ox 10/03/19 09:26 97.7 F 74 16 123/63 97 10/03/19 03:41 108/59 L 10/03/19 03:23 97.8 F 63 18 84/55 L 93 L Weight Admit Weight 216 lb Weight 214 lb 12.8 oz I&O: 10/02/19 10/03/19 10/04/19 06:59 06:59 06:59 Intake Total 1500 1989 Output Total 4575 Balance 1500 -2585 Result Diagrams: 10/03/19 04:12 10/03/19 04:12 Additional Labs: Accuchecks 10/03/19 10/02/19 10/02/19 05:57 20:18 16:25 POC Glucose 121 H 117 H 154 H 10/02/19 11:13 POC Glucose 111 H Hospitalist ROS - Medication Medications: Active Medications Generic Name Dose Route Start Last Admin Trade Name Freq PRN Reason Stop Dose Admin Acetaminophen 1,000 mg 09/24/19 18:00 10/03/19 05:37 Tylenol PO Not Given Q6HR [facility] Amiodarone HCl 200 mg 09/22/19 09:00 10/03/19 09:31 Cordarone PO 200 mg DAILY MARIO Administration Aspirin 81 mg 09/25/19 09:00 10/03/19 09:30 Ecotrin PO 81 mg DAILY MARIO Administration Atorvastatin Calcium 80 mg 09/22/19 21:00 10/02/19 20:40 Lipitor PO 80 mg HS MARIO Administration Carvedilol 3.125 mg 09/22/19 08:00 10/03/19 09:31 Coreg PO 3.125 mg BID-WM MARIO Administration Cholecalciferol 2,000 units 09/27/19 09:00 10/03/19 09:30 Vitamin D3 PO 2,000 units DAILY MARIO Administration Docusate Sodium 100 mg 10/02/19 21:00 10/03/19 09:32 Colace PO Not Given BID [facility] Fenofibrate 48 mg 09/22/19 09:00 10/03/19 09:31 Tricor PO 48 mg DAILY MARIO Administration Furosemide 40 mg 09/29/19 07:30 10/03/19 09:31 Lasix PO 40 mg DAILY-AC MARIO Administration Gabapentin 300 mg 09/22/19 09:00 10/03/19 09:30 Neurontin PO 300 mg BID MARIO Administration Insulin Human Lispro 0 units 09/22/19 05:23 09/24/19 20:31 Humalog SC 2 unit .BEDTIME SLIDING SC PRN Administration Bedtime Correctional Scale Lisinopril 5 mg 09/27/19 09:00 10/03/19 09:31 Zestril PO 5 mg DAILY MARIO Administration Metformin HCl 500 mg 09/27/19 08:00 10/03/19 09:31 Glucophage PO 500 mg BID-WM MARIO Administration Pantoprazole Sodium 40 mg 09/25/19 09:00 10/03/19 09:31 Protonix PO 40 mg DAILY MARIO Administration Rivaroxaban 20 mg 09/28/19 18:00 10/02/19 16:56 Xarelto PO 20 mg 1800 MARIO Administration Sodium Chloride 10 ml 09/22/19 09:00 10/03/19 09:32 Flush - Normal Saline IVF 10 ml Q12HR MARIO Administration - Exam Eye: PERRL, anicteric sclera Heart: RRR, no murmur, no gallops, no rubs, normal peripheral pulses Respiratory: CTAB, no wheezes, no rales, no ronchi, normal chest expansion Gastrointestinal: soft Extremities: no cyanosis, 1+ LE edema Hosp A/P (1) Adenocarcinoma, colon Code(s): C18.9 - MALIGNANT NEOPLASM OF COLON, UNSPECIFIED Status: Acute (2) Afib Code(s): I48.91 - UNSPECIFIED ATRIAL FIBRILLATION Status: Chronic Qualifiers: Atrial fibrillation type: unspecified Qualified Code(s): I48.91 - Unspecified atrial fibrillation (3) Coronary artery disease Code(s): I25.10 - ATHSCL HEART DISEASE OF [place] CORONARY ARTERY W/O ANG PCTRS Status: Chronic Qualifiers: Coronary Disease-Associated Artery/Lesion type: bypass graft (4) Diabetes mellitus Code(s): E11.9 - TYPE 2 DIABETES MELLITUS WITHOUT COMPLICATIONS Status: Chronic Qualifiers: Diabetes mellitus type: type 2 (5) GI bleed Code(s): K92.2 - GASTROINTESTINAL HEMORRHAGE, UNSPECIFIED Status: Resolved - Plan * Adenocarcinoma of the colon s/p resection- clinically stbale * GI- bleed- he had Flexsig yesterday, and he had some anastomotic bleeding which is resolving * AFIB- his heart rate is stable, and he is back on Xarelto * DM- blood glucose is stable * HTN- blood pressure is stable * CAD- stable * Stable for discharge from the Internal Medicine standpoint * Await GI clearance
[2019-10-03] MEDS: Rivaroxaban 10 MG TAB PO SCH (18:10)
--- NOTE | 2019-10-03 18:53 | PRG ---
DATE OF SERVICE: 10/03/2019 SUBJECTIVE: Mr. Yanez had three stools today with a little bit of blood, he states less than yesterday a little bit darker, mixed with formed stool. OBJECTIVE: VITAL SIGNS: Temperature is 98, pulse 71, blood pressure is 99/59 apparently dropped his pressures in the 80s earlier today. He is without complaints. LABORATORY DATA: White count 7.5, hemoglobin is 8.1, and platelet count 249. ASSESSMENT: 1. Status post resection for colon cancer. 2. Full anticoagulation for cardiac clot. 3. Intermittent bleeding from his rectal anastomosis, endoscopy yesterday showed a clot. This area was removed and then clipped. He had an ulcer with other vascular markings around it all the way around circumferentially. Recommendations if he continues to bleed, the options would be to try endoscope again, over-sewing the entire anastomosis or holding his anticoagulation for 48 hours. We will follow along with you. Job ID: [id number]
[2019-10-03] MEDS: Atorvastatin Calcium 40 MG TAB PO SCH (20:42)
[2019-10-04] MEDS: Acetaminophen 500 MG TAB PO SCH ×4 (00:15→17:20)
[2019-10-04 04:26] LABS: #Basophils 0.1 thou/uL (0.0-0.2); #Eosinphils 0.6 thou/uL (0.0-0.7); #Lymphocytes 1.1 thou/uL (1.20-3.40); #Monocytes 0.6 thou/uL (0.11-0.59); #Neutrophils 4.3 thou/uL (1.40-6.50); %Basophils 1.4 % (0.0-1.0); %Eosinophils 8.5 % (0.0-10.0); %Lymphocytes 17.2 % (21.0-51.0); %Monocytes 9.1 % (0.0-10.0); Hemoglobin 7.7 g/dL (14.0-18.0); Mean Corpuscular HGB CONC 33.1 g/dL (32.0-36.0); Mean Corpuscular Hemoglobin 28.7 pg (27.0-31.0); Mean Corpuscular Volume 86.8 fL (78.0-98.0); Mean Platelet Volume 9.6 fL (7.4-10.4); Platelet Count 258 thou/uL (130-400); RBC Distribution Width 20.4 % (11.5-14.5); Red Blood Cell (RBC) Count 2.68 mill/uL (4.70-6.10); White Blood Cell (WBC) Count 6.6 thou/uL (4.8-10.8)
[2019-10-04 04:46] LABS: Anion Gap 12 mmol/L (10-20); BUN (Urea Nitrogen) 11 mg/dL (8.4-25.7); Calc. Creatinine Clearance 63 mL/min (70-130); Calcium 8.9 mg/dL (7.8-10.44); Carbon Dioxide 29 mmol/L (23-31); Chloride 101 mmol/L (98-107); Estimated GFR-MDRD 48; Glucose 98 mg/dL (80-115); Potassium 3.9 mmol/L (3.5-5.1); Sodium 138 mmol/L (136-145)
[2019-10-04] MEDS: Furosemide 40 MG TAB PO SCH (09:00)
[2019-10-04] MEDS: Amiodarone 200 MG TAB PO SCH (09:00)
[2019-10-04] MEDS: Aspirin 81 mg Enteric Coated Tablet PO SCH (09:01)
[2019-10-04] MEDS: Fenofibrate 48 MG TAB PO SCH (09:01)
[2019-10-04] MEDS: Gabapentin 300 MG CAP PO SCH ×2 (09:01→21:42)
[2019-10-04] MEDS: metFORMIN 500 MG TAB PO SCH ×2 (09:01→17:21)
[2019-10-04] MEDS: Cholecalciferol 1,000 UNITS (25 MCG) TAB PO SCH (09:01)
[2019-10-04] MEDS: Carvedilol 3.125 MG TAB PO SCH ×2 (09:02→17:20)
[2019-10-04] MEDS: Docusate 100 MG CAP PO SCH ×2 (09:02→21:43)
[2019-10-04] MEDS: Lisinopril 5 MG TAB PO SCH (09:03)
--- NOTE | 2019-10-04 09:17 | PRG ---
DATE OF SERVICE: 10/04/2019 SUBJECTIVE: Mr. Yanez remains in his room on the telemetry floor. He is postoperative day #10 following laparoscopic low anterior resection of rectal cancer. He had T2, N1 disease. He was started on Xarelto postoperatively and has unfortunately continued to have some degree of rectal bleed with bloody bowel movements. He had a colonoscopy per Dr. Good yesterday and clips were placed at the anastomosis in areas that may have been oozing, although no active bleeding was seen. The patient has no complaints. He does note that he has had a couple of bowel movements this morning that are blood tinged. It is noted that he has had decreased blood pressure overnight with pressures in the 80s and 90s systolic. His heart rate remains in the 70s and he is asymptomatic. He denies shortness of breath or weakness. He tells me he has good appetite and is walking regularly. OBJECTIVE: On examination, he is afebrile, pulse 77, blood pressure currently 100/65. Full physical examination was not performed as the patient was in the bathroom. It has not changed physically, however, and he has no new complaints. LABORATORY DATA: His hemoglobin dropped from 8.1 yesterday to 7.7 this morning. He has a normal differential. White blood cell count of 6.6. Chemistry profile is entirely normal with exception of slightly elevated creatinine of 1.45. ASSESSMENT: He remains entirely stable except for this very slow decreased hemoglobin level. For now, I will hold his Xarelto. He does have a thrombus within his heart, therefore, this cannot be a long-term solution. If he continues to have decreased hemoglobin, then I will return him to the operating room tomorrow to perform a transanal inspection. Job ID: [id number]
--- NOTE | 2019-10-04 12:24 | PDOC.HOSPP ---
- Subjective Encounter Date: 10/04/19 Encounter Time: 12:22 Subjective: Mr. Yanez was seen today in follow-up of GI Bleed, colon cancer. - Objective Vital Signs & Weight: Vital Signs (12 hours) Temp Pulse Resp BP BP BP Pulse Ox 10/04/19 11:35 97.5 F L 81 18 93/52 L 98 10/04/19 09:03 75 109/66 10/04/19 07:26 97.9 F 77 16 100/65 99 10/04/19 03:35 98.0 F 71 16 94/55 L 98 Weight Admit Weight 216 lb Weight 204 lb 14.4 oz I&O: 10/03/19 10/04/19 10/05/19 06:59 06:59 06:59 Intake Total 1989 1239 Output Total 1981 6723 Balance -4013 -3435 Result Diagrams: 10/04/19 03:48 10/04/19 03:48 Additional Labs: Accuchecks 10/04/19 10/04/19 10/03/19 11:19 05:38 21:45 POC Glucose 126 H 113 H 117 H 10/03/19 16:56 POC Glucose 128 H Hospitalist ROS - Medication Medications: Active Medications Generic Name Dose Route Start Last Admin Trade Name Freq PRN Reason Stop Dose Admin Acetaminophen 1,000 mg 09/24/19 18:00 10/04/19 11:34 Tylenol PO Not Given Q6HR [facility] Amiodarone HCl 200 mg 09/22/19 09:00 10/04/19 09:00 Cordarone PO 200 mg DAILY MARIO Administration Aspirin 81 mg 09/25/19 09:00 10/04/19 09:01 Ecotrin PO 81 mg DAILY MARIO Administration Atorvastatin Calcium 80 mg 09/22/19 21:00 10/03/19 20:42 Lipitor PO 80 mg HS MARIO Administration Carvedilol 3.125 mg 09/22/19 08:00 10/04/19 09:02 Coreg PO Not Given BID-[facility] Cholecalciferol 2,000 units 09/27/19 09:00 10/04/19 09:01 Vitamin D3 PO 2,000 units DAILY MARIO Administration Docusate Sodium 100 mg 10/02/19 21:00 10/04/19 09:02 Colace PO Not Given BID [facility] Fenofibrate 48 mg 09/22/19 09:00 10/04/19 09:01 Tricor PO 48 mg DAILY MARIO Administration Furosemide 40 mg 09/29/19 07:30 10/04/19 09:00 Lasix PO 40 mg DAILY-AC MARIO Administration Gabapentin 300 mg 09/22/19 09:00 10/04/19 09:01 Neurontin PO 300 mg BID MARIO Administration Insulin Human Lispro 0 units 09/22/19 05:23 09/24/19 20:31 Humalog SC 2 unit .BEDTIME SLIDING SC PRN Administration Bedtime Correctional Scale Lisinopril 5 mg 09/27/19 09:00 10/04/19 09:03 Zestril PO Not Given DAILY MARIO Metformin HCl 500 mg 09/27/19 08:00 10/04/19 09:01 Glucophage PO 500 mg BID-WM MARIO Administration Pantoprazole Sodium 40 mg 09/25/19 09:00 10/04/19 09:01 Protonix PO 40 mg DAILY MARIO Administration Sodium Chloride 10 ml 09/22/19 09:00 10/04/19 09:01 Flush - Normal Saline IVF 10 ml Q12HR MARIO Administration - Exam Eye: PERRL, anicteric sclera Heart: RRR, no murmur, no gallops, no rubs, normal peripheral pulses Respiratory: CTAB, no wheezes, no rales, no ronchi, normal chest expansion Gastrointestinal: soft, non-tender, non-distended, normal bowel sounds, no palpable masses, no hepatomegaly Extremities: no cyanosis, 1+ LE edema Hosp A/P (1) Adenocarcinoma, colon Code(s): C18.9 - MALIGNANT NEOPLASM OF COLON, UNSPECIFIED Status: Acute (2) Afib Code(s): I48.91 - UNSPECIFIED ATRIAL FIBRILLATION Status: Chronic Qualifiers: Atrial fibrillation type: unspecified Qualified Code(s): I48.91 - Unspecified atrial fibrillation (3) Coronary artery disease Code(s): I25.10 - ATHSCL HEART DISEASE OF [place] CORONARY ARTERY W/O ANG PCTRS Status: Chronic Qualifiers: Coronary Disease-Associated Artery/Lesion type: bypass graft (4) Diabetes mellitus Code(s): E11.9 - TYPE 2 DIABETES MELLITUS WITHOUT COMPLICATIONS Status: Chronic Qualifiers: Diabetes mellitus type: type 2 (5) GI bleed Code(s): K92.2 - GASTROINTESTINAL HEMORRHAGE, UNSPECIFIED Status: Resolved - Plan * Adenocarcinoma of the colon s/p resection- clinically stable * GI- bleed- likely an anastomotic bleed. Continue to monitor his H&H and further recommendations from General Surgery * AFIB- his heart rate is stable,Xarelto has been discontinued due to recurrent rectal bleeding * DM- blood glucose is stable * HTN- has been on the lower side. will hold carvediolol as needed amd monitor * CAD- stable
--- NOTE | 2019-10-04 17:59 | PRG ---
DATE OF SERVICE: 10/04/2019 SUBJECTIVE: Mr. Yanez states he has had no bowel movement since his Xarelto was held. OBJECTIVE: VITAL SIGNS: Today, temperature 97, pulse 68, and blood pressure 108/55. ABDOMEN: Soft, nontender. GENERAL: He is sitting up in a chair. He is alert and oriented. LABORATORY DATA: Hemoglobin 7.7, white count 6.6, and platelet count 258. ASSESSMENT: 1. Continued rectal bleeding, now seems to be slowing, withholding his anticoagulant, thrombus in his heart. 2. Colon cancer, status post resection with anastomosis. 3. Bleeding anastomosis, likely related to the ulceration at the anastomosis and anticoagulation. 4. Coronary artery disease, heart failure, and cardiac thrombus. PLAN: I have talked with Dr. Hallman, may consider repeat sigmoidoscopy with APC treatment of the anastomosis versus over-sew tomorrow morning. The patient is on liquid diet with plans to be n.p.o. after midnight. Job ID: [id number]
[2019-10-04] MEDS: Atorvastatin Calcium 40 MG TAB PO SCH (21:42)
[2019-10-05 04:33] LABS: #Basophils 0.1 thou/uL (0.0-0.2); #Eosinphils 0.5 thou/uL (0.0-0.7); #Lymphocytes 1.6 thou/uL (1.20-3.40); #Monocytes 0.7 thou/uL (0.11-0.59); #Neutrophils 4.3 thou/uL (1.40-6.50); %Basophils 1.5 % (0.0-1.0); %Eosinophils 7.1 % (0.0-10.0); %Lymphocytes 21.9 % (21.0-51.0); %Monocytes 9.6 % (0.0-10.0); %Neutrophils 59.8 % (42.0-75.0); Mean Corpuscular HGB CONC 33.1 g/dL (32.0-36.0); Mean Corpuscular Hemoglobin 29.3 pg (27.0-31.0); Mean Corpuscular Volume 88.3 fL (78.0-98.0); Mean Platelet Volume 8.8 fL (7.4-10.4); Platelet Count 251 thou/uL (130-400); RBC Distribution Width 20.9 % (11.5-14.5); Red Blood Cell (RBC) Count 2.38 mill/uL (4.70-6.10); White Blood Cell (WBC) Count 7.1 thou/uL (4.8-10.8)
[2019-10-05 04:54] LABS: Anion Gap 12 mmol/L (10-20); BUN (Urea Nitrogen) 10 mg/dL (8.4-25.7); Calc. Creatinine Clearance 62 mL/min (70-130); Calcium 8.8 mg/dL (7.8-10.44); Carbon Dioxide 27 mmol/L (23-31); Chloride 102 mmol/L (98-107); Estimated GFR-MDRD 47; Glucose 91 mg/dL (80-115); Potassium 3.8 mmol/L (3.5-5.1); Sodium 137 mmol/L (136-145)
[2019-10-05] MEDS: Acetaminophen 500 MG TAB PO SCH ×3 (06:36→18:23)
[2019-10-05] MEDS: Furosemide 40 MG TAB PO SCH (08:46)
[2019-10-05] MEDS: Lisinopril 5 MG TAB PO SCH (08:47)
[2019-10-05] MEDS: Amiodarone 200 MG TAB PO SCH (08:47)
[2019-10-05] MEDS: metFORMIN 500 MG TAB PO SCH ×2 (08:47→18:26)
[2019-10-05] MEDS: Carvedilol 3.125 MG TAB PO SCH ×2 (08:47→18:23)
[2019-10-05] MEDS: Docusate 100 MG CAP PO SCH ×2 (08:50→20:32)
[2019-10-05] MEDS: Cholecalciferol 1,000 UNITS (25 MCG) TAB PO SCH (08:50)
[2019-10-05] MEDS: Gabapentin 300 MG CAP PO SCH ×2 (08:50→20:32)
[2019-10-05] MEDS: Aspirin 81 mg Enteric Coated Tablet PO SCH (08:50)
[2019-10-05] MEDS: Fenofibrate 48 MG TAB PO SCH (08:51)
--- NOTE | 2019-10-05 11:14 | PDOC.HOSPP ---
- Subjective Encounter Date: 10/05/19 Encounter Time: 11:12 Subjective: Renata was seen today in follow-up of GI bleed. He does not have any complaints. - Objective Vital Signs & Weight: Vital Signs (12 hours) Temp Pulse Resp BP BP BP Pulse Ox 10/05/19 08:47 77 103/56 L 10/05/19 08:15 97.6 F 77 22 H 103/56 L 97 10/05/19 04:30 98.0 F 66 20 105/60 98 Weight Admit Weight 216 lb Weight 202 lb I&O: 10/04/19 10/05/19 10/06/19 06:59 06:59 06:59 Intake Total 1240 1790 Output Total 2350 1675 450 Balance -1110 115 -450 Result Diagrams: 10/05/19 03:57 10/05/19 03:56 Additional Labs: Accuchecks 10/05/19 10/05/19 10/04/19 10:13 06:10 20:46 POC Glucose 104 100 121 H 10/04/19 10/04/19 16:36 11:19 POC Glucose 104 126 H Hospitalist ROS - Medication Medications: Active Medications Generic Name Dose Route Start Last Admin Trade Name Freq PRN Reason Stop Dose Admin Acetaminophen 1,000 mg 09/24/19 18:00 10/05/19 06:36 Tylenol PO Not Given Q6HR [facility] Amiodarone HCl 200 mg 09/22/19 09:00 10/05/19 08:47 Cordarone PO 200 mg DAILY MARIO Administration Aspirin 81 mg 09/25/19 09:00 10/05/19 08:50 Ecotrin PO 81 mg DAILY MARIO Administration Atorvastatin Calcium 80 mg 09/22/19 21:00 10/04/19 21:42 Lipitor PO 80 mg HS MARIO Administration Carvedilol 3.125 mg 09/22/19 08:00 10/05/19 08:47 Coreg PO 3.125 mg BID-WM MARIO Administration Cholecalciferol 2,000 units 09/27/19 09:00 10/05/19 08:50 Vitamin D3 PO 2,000 units DAILY MARIO Administration Docusate Sodium 100 mg 10/02/19 21:00 10/05/19 08:50 Colace PO Not Given BID [facility] Fenofibrate 48 mg 09/22/19 09:00 10/05/19 08:51 Tricor PO 48 mg DAILY MARIO Administration Furosemide 40 mg 09/29/19 07:30 10/05/19 08:46 Lasix PO 40 mg DAILY-AC MARIO Administration Gabapentin 300 mg 09/22/19 09:00 10/05/19 08:50 Neurontin PO 300 mg BID MARIO Administration Insulin Human Lispro 0 units 09/22/19 05:23 09/24/19 20:31 Humalog SC 2 unit .BEDTIME SLIDING SC PRN Administration Bedtime Correctional Scale Lisinopril 5 mg 09/27/19 09:00 10/05/19 08:47 Zestril PO 5 mg DAILY MARIO Administration Metformin HCl 500 mg 09/27/19 08:00 10/05/19 08:47 Glucophage PO 500 mg BID-WM MARIO Administration Pantoprazole Sodium 40 mg 09/25/19 09:00 10/05/19 08:50 Protonix PO 40 mg DAILY MARIO Administration Sodium Chloride 10 ml 09/22/19 09:00 10/04/19 21:43 Flush - Normal Saline IVF 10 ml Q12HR MARIO Administration - Exam Eye: PERRL, anicteric sclera Heart: RRR, no murmur, no gallops, no rubs, normal peripheral pulses Respiratory: CTAB, no wheezes, no rales, no ronchi, normal chest expansion, no tachypnea Gastrointestinal: soft, non-tender, non-distended, normal bowel sounds, no palpable masses Extremities: no cyanosis, no edema Hosp A/P (1) Adenocarcinoma, colon Code(s): C18.9 - MALIGNANT NEOPLASM OF COLON, UNSPECIFIED Status: Acute (2) Afib Code(s): I48.91 - UNSPECIFIED ATRIAL FIBRILLATION Status: Chronic Qualifiers: Atrial fibrillation type: unspecified Qualified Code(s): I48.91 - Unspecified atrial fibrillation (3) Coronary artery disease Code(s): I25.10 - ATHSCL HEART DISEASE OF [place] CORONARY ARTERY W/O ANG PCTRS Status: Chronic Qualifiers: Coronary Disease-Associated Artery/Lesion type: bypass graft (4) Diabetes mellitus Code(s): E11.9 - TYPE 2 DIABETES MELLITUS WITHOUT COMPLICATIONS Status: Chronic Qualifiers: Diabetes mellitus type: type 2 (5) GI bleed Code(s): K92.2 - GASTROINTESTINAL HEMORRHAGE, UNSPECIFIED Status: Resolved - Plan * Adenocarcinoma of the colon s/p resection- clinically stable * GI- bleed- likely an anastomotic bleed- management per GI and Surgery * AFIB- his heart rate is stable,Xarelto has been discontinued due to recurrent rectal bleeding * DM- blood glucose is stable * HTN- has been on the lower side- but improved- will continue to monitor * CAD- stable
[2019-10-05] MEDS ORDERED: Metoclopramide HCl 10 MG/2 ML VIAL ONE (11:33)
[2019-10-05] MEDS ORDERED: Ondansetron PF 4 MG/2 ML Vial ONE (11:33)
[2019-10-05] MEDS ORDERED: Fleet Enema 133 ML BOT FS SCH (12:00)
[2019-10-05] MEDS ORDERED: Famotidine/PF 20 mg/2ml Vial ONE (12:23)
[2019-10-05] MEDS ORDERED: Fentanyl 100 MCG/2 ML VIAL ONE ×2 (12:23→12:43)
[2019-10-05] MEDS ORDERED: SUGAMMADEX SODIUM 500 MG/5 ML VIAL ONE (12:44)
[2019-10-05 12:47] VITALS: BMI 30.7
[2019-10-05] MEDS ORDERED: Ketamine 50 MG/ML (10ML VIAL) ONE (12:54)
[2019-10-05] MEDS ORDERED: Midazolam HCl 2 mg/2 ml Vial ONE (12:54)
[2019-10-05] MEDS ORDERED: Furosemide 20 MG/2 ML VIAL SLOW IVP SCH (13:00)
[2019-10-05] MEDS ORDERED: Promethazine HCl 25 MG/ML VIAL IM PRN (14:24)
[2019-10-05] MEDS ORDERED: Promethazine HCl 25 MG/ML VIAL SLOW IVP PRN (14:24)
[2019-10-05] MEDS ORDERED: Ondansetron HCl/PF 4 MG/2 ML Vial IVP PRN (14:24)
--- NOTE | 2019-10-05 15:22 | PRG ---
DATE OF SERVICE: 10/05/2019 SUBJECTIVE: Mr. Yanez remains in the hospital. He is now postoperative day #11 following laparoscopic low anterior resection of rectal cancer. He had T2/N1 disease. He has been recognized to have an intracardiac thrombus, for which he has been on Xarelto. He has unfortunately continued to have some oozing with rectal bleeding. He had a lower endoscopy per Dr. Good on October 01 and a visible clot was cleared. The patient has had some minor oozing from the rectum since then. Unfortunately, his hemoglobin continues to drop. Yesterday, it was 7.7, and today, it is 7.0. For this reason, I recommended another examination in the operating room. I was prepared to over-sew this surgically if this could not be addressed appropriately endoscopically. Dr. Good was able to clearly visualize the anastomosis. There was no clot or evidence of blood there. There was no blood above it. Some minor areas of potential concern were cauterized with the argon beam device. The patient denies any complaints. He denies pain. He tells me he is eating well and feels well. OBJECTIVE: VITAL SIGNS: He is afebrile. His blood pressure is a little bit low at 94/48 this morning, pulse is 88. ABDOMEN: Benign. RECTAL: Intact anastomosis. This was endoscopically viewed very nicely by Dr. Good. LABORATORY DATA: His basic metabolic panel is normal. Creatinine is little bit elevated at 1.48. ASSESSMENT: He is stable. He does not appear to be bleeding any longer. I think it would be safe to resume his Xarelto tomorrow. As his hemoglobin has dropped down to 7.0, I will give him 1 unit of blood today. I would anticipate discharge tomorrow and outpatient followup. Job ID: [id number]
--- NOTE | 2019-10-05 16:11 | OP ---
DATE OF PROCEDURE: 10/04/2019 PREPROCEDURE DIAGNOSES: Recurrent rectal bleeding, status post low sigmoid resection of advance colon cancer, on full-dose anticoagulation secondary to cardiac thrombus. This is a followup look endoscopy from one that had been performed a few days ago as the patient continues to have slow oozing. His Eliquis has now been held for 24 hours. ANESTHESIA: TIVA. POSTPROCEDURE DIAGNOSES: Very well healed side-to-end anastomosis. There were a couple of areas of redness and with conjunction with Dr. Hallman, we decided to lightly cauterize those with argon plasma coagulation. There was no active bleeding with it. Manipulating and irrigated the remainder of the anastomosis, there was no visible vessel seen. There were no clots. There was no active bleeding. The scope was removed. PLAN: Resume Xarelto tomorrow. DESCRIPTION OF PROCEDURE: A rectal exam performed, which was normal. We put the endoscope in. The anastomosis was there about 5 cm from the anorectal verge, it appeared healthy. The tattoo was once again seen. No visible vessels or clots were seen unlike the last procedure 48 hours ago. There was one area of erythema that we decided to go ahead and cauterize with the argon plasma coagulation. Irrigating and manipulated the remainder the anastomosis and ulcer, there was no bleeding or visible vessel seen. The scope was removed. The patient tolerated the procedure well and there were no complications. Job ID: [id number]
[2019-10-05] MEDS: Atorvastatin Calcium 40 MG TAB PO SCH (20:32)
[2019-10-06] MEDS: Acetaminophen 500 MG TAB PO SCH ×5 (00:20→23:22)
[2019-10-06 04:17] LABS: #Basophils 0.1 thou/uL (0.0-0.2); #Eosinphils 0.5 thou/uL (0.0-0.7); #Lymphocytes 1.5 thou/uL (1.20-3.40); #Monocytes 0.7 thou/uL (0.11-0.59); #Neutrophils 5.8 thou/uL (1.40-6.50); %Basophils 1.3 % (0.0-1.0); %Eosinophils 5.3 % (0.0-10.0); %Lymphocytes 17.7 % (21.0-51.0); %Monocytes 8.2 % (0.0-10.0); %Neutrophils 67.6 % (42.0-75.0); Hemoglobin 7.8 g/dL (14.0-18.0); Mean Corpuscular Hemoglobin 29.4 pg (27.0-31.0); Mean Corpuscular Volume 89.1 fL (78.0-98.0); Mean Platelet Volume 8.6 fL (7.4-10.4); Platelet Count 216 thou/uL (130-400); RBC Distribution Width 20.6 % (11.5-14.5); Red Blood Cell (RBC) Count 2.66 mill/uL (4.70-6.10); White Blood Cell (WBC) Count 8.6 thou/uL (4.8-10.8)
[2019-10-06 04:44] LABS: Anion Gap 11 mmol/L (10-20); BUN (Urea Nitrogen) 11 mg/dL (8.4-25.7); Calc. Creatinine Clearance 49 mL/min (70-130); Calcium 8.7 mg/dL (7.8-10.44); Carbon Dioxide 29 mmol/L (23-31); Chloride 102 mmol/L (98-107); Estimated GFR-MDRD 36; Glucose 101 mg/dL (80-115); Potassium 3.7 mmol/L (3.5-5.1); Sodium 138 mmol/L (136-145)
--- NOTE | 2019-10-06 07:01 | PDOC.GSPN ---
Surgery Progress Note: Subj - Subjective Patient reports: pain well controlled (Patient claims not in pain, refused tylenol), no bowel movement (Patient claims no bowel movements over night) Surgery Progress Note: Obj - Vital signs Vital signs: Vital Signs - Most Recent Temp Pulse Resp BP Pulse Ox 97.6 F 66 20 96/52 L 96 10/06/19 03:07 10/06/19 03:07 10/06/19 03:07 10/06/19 03:07 10/06/19 03:07 Surgery Progress Note: Results - Labs Result Diagrams: 10/06/19 04:05 10/06/19 04:05 Lab results: Laboratory Results - last 24 hr 10/05/19 10/05/19 10/06/19 13:35 20:53 04:05 WBC RBC Hgb Hct MCV MCH MCHC RDW Plt Count MPV Neutrophils % Lymphocytes % Monocytes % Eosinophils % Basophils % Neutrophils # Lymphocytes # Monocytes # Eosinophils # Basophils # Sodium 138 Potassium 3.7 Chloride 102 Carbon Dioxide 29 Anion Gap 11 BUN 11 Creatinine 1.86 H Estimated GFR (MDRD) 36 Glucose 101 POC Glucose 147 H Calcium 8.7 Crossmatch See Detail 10/06/19 10/06/19 04:05 06:05 WBC 8.6 RBC 2.66 L Hgb 7.8 L Hct 23.7 L MCV 89.1 MCH 29.4 MCHC 33.0 RDW 20.6 H Plt Count 216 MPV 8.6 Neutrophils % 67.6 Lymphocytes % 17.7 L Monocytes % 8.2 Eosinophils % 5.3 Basophils % 1.3 H Neutrophils # 5.8 Lymphocytes # 1.5 Monocytes # 0.7 H Eosinophils # 0.5 Basophils # 0.1 Sodium Potassium Chloride Carbon Dioxide Anion Gap BUN Creatinine Estimated GFR (MDRD) Glucose POC Glucose 109 Calcium Crossmatch Surgery Progress Note: A/P - Problem (1) Anemia Current Visit: Yes Code(s): D64.9 - ANEMIA, UNSPECIFIED Status: Acute Qualifiers: Other causes of anemia: acute posthemorrhagic Assessment and Plan: After receiving 1 unit of blood, patient's hemoglobin increased from 7 to 7.8 this morning - Plan Plan: Patient denies being in pain, and declined tylenol. He has not had any bowel movements or rectal bleeding over night, and has had appropriate increase in Hgb after receiving 1 unit transfusion. Patient should be discharged later today.
[2019-10-06] MEDS: metFORMIN 500 MG TAB PO SCH ×2 (08:30→17:56)
[2019-10-06] MEDS: Aspirin 81 mg Enteric Coated Tablet PO SCH (08:30)
[2019-10-06] MEDS: Amiodarone 200 MG TAB PO SCH (08:30)
[2019-10-06] MEDS: Fenofibrate 48 MG TAB PO SCH (08:30)
[2019-10-06] MEDS: Docusate 100 MG CAP PO SCH ×2 (08:30→19:54)
[2019-10-06] MEDS: Carvedilol 3.125 MG TAB PO SCH ×3 (08:30→17:57)
[2019-10-06] MEDS: Lisinopril 5 MG TAB PO SCH ×2 (08:31→08:35)
[2019-10-06] MEDS: Gabapentin 300 MG CAP PO SCH ×2 (08:31→19:55)
[2019-10-06] MEDS: Rivaroxaban 10 MG TAB PO SCH (08:32)
[2019-10-06] MEDS: Furosemide 40 MG TAB PO SCH (08:34)
[2019-10-06] MEDS: Cholecalciferol 1,000 UNITS (25 MCG) TAB PO SCH (08:39)
[2019-10-06] MEDS ORDERED: Sodium Chloride 0.9% 1,000 ML IV SCH (09:00)
--- NOTE | 2019-10-06 10:05 | PQF ---
CLINICAL DOCUMENTATION IMPROVEMENT CLARIFICATION FORM: ICD-10 Updated PLEASE DO AN ADDENDUM TO THE PROGRESS NOTE WITH ANY DOCUMENTATION UPDATES OR ADDITIONS AND CARRY THROUGH TO DC SUMMARY. THANK YOU. DATE: 10/08/19 ATTN: Mallika MACHUCA NP Please exercise your independent, professional judgment in responding to the clarification form. Clinical indicators are provided on the bottom of this form for your review Please check appropriate box(s): HEART FAILURE: ACUITY [ ] Acute [ ] Acute on Chronic [ ] Chronic [ ] Other diagnosis [ x ] Unable to determine In addition, please specify: Present on Admission (POA): [ ] Yes [ ] No [ ] Unable to determine For continuity of documentation, please document condition throughout progress notes and discharge summary. Thank You. CLINICAL INDICATORS - SIGNS / SYMPTOMS / LABS / RESULTS AND LOCATION IN EMR 09/27 PN (Doreen PAGE) - Pt c/o scrotal edema; reports occurred in past when he had heart problems; 3+ LE edema. RISKS: 09/28 DC Summary: Systolic HF (not mentioned anywhere else in chart) TREATMENT: IV Lasix 09/27; PO Lasix started 09/28 ECHO 09/24: EF 35-40%; L [facility] moderately dilated (This form is maintained as a part of the permanent medical record) 2014 [email or web address]. All Rights Reserved [email or web address]
--- NOTE | 2019-10-06 10:39 | PRG ---
DATE OF SERVICE: 10/06/2019 Please see medical student note from today. In summary, he overall appears to be doing pretty well and still has no complaints. His hemoglobin has gone up from 7.3 yesterday to 7.8 today after 1 unit of transfusion. He denies any bowel movements in the interim. It is noted, however, that his creatinine went up between yesterday and today. It went up from 1.[address] Peacock has already seen him in regard to this and ordered some IV fluids and alteration of medication. Finally, it is noted that the patient's blood pressure has been relatively low certainly in the past 24 hours, which would also correspond to his hypovolemia. His most recent blood pressure is 96/52, and I anticipate this will respond to some IV fluid administration. He tells me he is eating fine and drinking fine. He has been receiving Lasix, which could have contributed to his relative hypovolemia. He will continue on medications per Dr. Peacock and followup labs are ordered for 3 o'clock this afternoon. Overall from a surgical standpoint, he appears to be stable for discharge at any time. He is postoperative day #12 from his low anterior resection. Job ID: [id number]
--- NOTE | 2019-10-06 11:35 | PDOC.HOSPP ---
- Subjective Encounter Date: 10/06/19 Encounter Time: 11:34 Subjective: was seen today in follow-up GI bleed. - Objective Vital Signs & Weight: Vital Signs (12 hours) Temp Pulse Resp BP BP BP Pulse Ox 10/06/19 08:35 72 97/56 L 10/06/19 08:00 99 10/06/19 07:33 97.3 F L 72 14 110/58 L 99 10/06/19 03:07 97.6 F 66 20 96/52 L 96 Weight Admit Weight 216 lb Weight 199 lb 11.2 oz I&O: 10/05/19 10/06/19 10/07/19 06:59 06:59 06:59 Intake Total 1790 590 Output Total 1675 2400 Balance 115 -1810 Result Diagrams: 10/06/19 04:05 10/06/19 04:05 Additional Labs: Accuchecks 10/06/19 10/06/19 10/05/19 10:45 06:05 20:53 POC Glucose 125 H 109 147 H 10/05/19 10/05/19 17:11 16:57 POC Glucose 102 105 Hospitalist ROS - Medication Medications: Active Medications Generic Name Dose Route Start Last Admin Trade Name Freq PRN Reason Stop Dose Admin Acetaminophen 1,000 mg 09/24/19 18:00 10/06/19 10:56 Tylenol PO Not Given Q6HR [facility] Amiodarone HCl 200 mg 09/22/19 09:00 10/06/19 08:30 Cordarone PO 200 mg DAILY MARIO Administration Aspirin 81 mg 09/25/19 09:00 10/06/19 08:30 Ecotrin PO 81 mg DAILY MARIO Administration Atorvastatin Calcium 80 mg 09/22/19 21:00 10/05/19 20:32 Lipitor PO 80 mg HS MARIO Administration Carvedilol 3.125 mg 09/22/19 08:00 10/06/19 08:41 Coreg PO Not Given BID-[facility] Cholecalciferol 2,000 units 10/06/19 09:00 10/06/19 08:39 Vitamin D3 PO 2,000 units DAILY MARIO Administration Docusate Sodium 100 mg 10/02/19 21:00 10/06/19 08:30 Colace PO 100 mg BID [facility] Administration Fenofibrate 48 mg 09/22/19 09:00 10/06/19 08:30 Tricor PO 48 mg DAILY MARIO Administration Gabapentin 300 mg 09/22/19 09:00 10/06/19 08:31 Neurontin PO 300 mg BID MARIO Administration Sodium Chloride 1,000 mls @ 100 mls/hr 10/06/19 09:00 10/06/19 09:08 Normal Saline 0.9% IV 10/06/19 14:00 1,000 mls .Q10H [facility]IO Administration Insulin Human Lispro 0 units 09/22/19 05:23 09/24/19 20:31 Humalog SC 2 unit .BEDTIME SLIDING SC PRN Administration Bedtime Correctional Scale Metformin HCl 500 mg 09/27/19 08:00 10/06/19 08:30 Glucophage PO 500 mg BID-[facility] Administration Pantoprazole Sodium 40 mg 09/25/19 09:00 10/06/19 08:32 Protonix PO 40 mg DAILY [facility]IO Administration Rivaroxaban 20 mg 10/06/19 09:00 10/06/19 08:32 Xarelto PO 20 mg 0900 MARIO Administration Sodium Chloride 10 ml 09/22/19 09:00 10/06/19 08:39 Flush - Normal Saline IVF 10 ml Q12HR MARIO Administration - Exam Eye: PERRL, anicteric sclera Heart: RRR, no murmur, no gallops, no rubs, normal peripheral pulses Respiratory: CTAB, no wheezes, no rales, no ronchi, normal chest expansion Gastrointestinal: soft, non-tender Extremities: no cyanosis, no clubbing, 1+ LE edema Hosp A/P (1) Adenocarcinoma, colon Code(s): C18.9 - MALIGNANT NEOPLASM OF COLON, UNSPECIFIED Status: Acute (2) Afib Code(s): I48.91 - UNSPECIFIED ATRIAL FIBRILLATION Status: Chronic Qualifiers: Atrial fibrillation type: unspecified Qualified Code(s): I48.91 - Unspecified atrial fibrillation (3) Coronary artery disease Code(s): I25.10 - ATHSCL HEART DISEASE OF [place] CORONARY ARTERY W/O ANG PCTRS Status: Chronic Qualifiers: Coronary Disease-Associated Artery/Lesion type: bypass graft (4) Diabetes mellitus Code(s): E11.9 - TYPE 2 DIABETES MELLITUS WITHOUT COMPLICATIONS Status: Chronic Qualifiers: Diabetes mellitus type: type 2 (5) GI bleed Code(s): K92.2 - GASTROINTESTINAL HEMORRHAGE, UNSPECIFIED Status: Resolved - Plan * Adenocarcinoma of the colon s/p resection- clinically stable * GI- bleed- likely an anastomotic bleed-he has been evaluated by surgery team, and there is no indication for any additional intervention * AFIB- his heart rate is stable,Xarelto has been discontinued due to recurrent rectal bleeding * DM- blood glucose is stable * HTN- has been on the lower side- but improved- will continue to monitor * Acute kidney injury- his creatinine has been rising-agree with giving some additional fluids,and monitor * CAD- stable * Disposition per Cardiology
[2019-10-06 15:14] LABS: #Basophils 0.1 thou/uL (0.0-0.2); #Eosinphils 0.5 thou/uL (0.0-0.7); #Lymphocytes 1.7 thou/uL (1.20-3.40); #Monocytes 0.7 thou/uL (0.11-0.59); %Basophils 0.9 % (0.0-1.0); %Eosinophils 5.3 % (0.0-10.0); %Lymphocytes 16.7 % (21.0-51.0); Hemoglobin 8.8 g/dL (14.0-18.0); Mean Corpuscular HGB CONC 32.3 g/dL (32.0-36.0); Mean Platelet Volume 8.9 fL (7.4-10.4); Platelet Count 263 thou/uL (130-400); RBC Distribution Width 20.5 % (11.5-14.5); Red Blood Cell (RBC) Count 3.01 mill/uL (4.70-6.10)
[2019-10-06 16:01] LABS: Anion Gap 14 mmol/L (10-20); BUN (Urea Nitrogen) 11 mg/dL (8.4-25.7); Calc. Creatinine Clearance 49 mL/min (70-130); Calcium 8.9 mg/dL (7.8-10.44); Carbon Dioxide 26 mmol/L (23-31); Chloride 101 mmol/L (98-107); Estimated GFR-MDRD 37; Glucose 112 mg/dL (80-115); Potassium 3.8 mmol/L (3.5-5.1); Sodium 137 mmol/L (136-145)
[2019-10-06] MEDS: Sodium Chloride 0.9% 500 ML IV SCH (18:41)
[2019-10-06] MEDS: Atorvastatin Calcium 40 MG TAB PO SCH (19:54)
[2019-10-07] MEDS: Sodium Chloride 0.9% 1,000 ML IV SCH ×2 (00:06→17:53)
[2019-10-07] MEDS: Sodium Chloride 0.9% 500 ML IV SCH ×3 (00:07→11:48)
[2019-10-07 04:44] LABS: #Basophils 0.1 thou/uL (0.0-0.2); #Eosinphils 0.5 thou/uL (0.0-0.7); #Lymphocytes 1.4 thou/uL (1.20-3.40); #Monocytes 0.5 thou/uL (0.11-0.59); %Basophils 1.2 % (0.0-1.0); %Eosinophils 7.4 % (0.0-10.0); %Lymphocytes 21.4 % (21.0-51.0); %Monocytes 8.1 % (0.0-10.0); %Neutrophils 61.9 % (42.0-75.0); Hemoglobin 7.4 g/dL (14.0-18.0); Mean Corpuscular HGB CONC 32.5 g/dL (32.0-36.0); Mean Corpuscular Hemoglobin 29.4 pg (27.0-31.0); Mean Corpuscular Volume 90.3 fL (78.0-98.0); Mean Platelet Volume 9.1 fL (7.4-10.4); Platelet Count 205 thou/uL (130-400); RBC Distribution Width 20.3 % (11.5-14.5); Red Blood Cell (RBC) Count 2.53 mill/uL (4.70-6.10); White Blood Cell (WBC) Count 6.4 thou/uL (4.8-10.8)
[2019-10-07 05:07] LABS: Anion Gap 11 mmol/L (10-20); BUN (Urea Nitrogen) 11 mg/dL (8.4-25.7); Calc. Creatinine Clearance 54 mL/min (70-130); Calcium 8.1 mg/dL (7.8-10.44); Carbon Dioxide 27 mmol/L (23-31); Chloride 104 mmol/L (98-107); Estimated GFR-MDRD 41; Glucose 97 mg/dL (80-115); Potassium 3.9 mmol/L (3.5-5.1); Sodium 138 mmol/L (136-145)
[2019-10-07] MEDS: Acetaminophen 500 MG TAB PO SCH ×3 (05:28→17:52)
[2019-10-07] MEDS: Rivaroxaban 10 MG TAB PO SCH (08:21)
[2019-10-07] MEDS: Carvedilol 3.125 MG TAB PO SCH ×2 (08:21→17:52)
[2019-10-07] MEDS: Cholecalciferol 1,000 UNITS (25 MCG) TAB PO SCH (08:21)
[2019-10-07] MEDS: Fenofibrate 48 MG TAB PO SCH (08:22)
[2019-10-07] MEDS: Amiodarone 200 MG TAB PO SCH (08:22)
[2019-10-07] MEDS: Docusate 100 MG CAP PO SCH ×2 (08:22→20:30)
[2019-10-07] MEDS: metFORMIN 500 MG TAB PO SCH ×2 (08:22→17:52)
[2019-10-07] MEDS: Aspirin 81 mg Enteric Coated Tablet PO SCH (08:22)
[2019-10-07] MEDS: Gabapentin 300 MG CAP PO SCH ×2 (08:24→20:30)
--- NOTE | 2019-10-07 11:00 | PDOC.HOSPP ---
- Subjective Encounter Date: 10/07/19 Encounter Time: 10:58 Subjective: Mr. Yanez was seen today in follow-up of GI bleed. He does not have any complaints. - Objective Vital Signs & Weight: Vital Signs (12 hours) Temp Pulse Resp BP BP Pulse Ox 10/07/19 07:59 98.2 F 67 17 116/60 96 10/07/19 07:46 96 10/07/19 03:04 97.8 F 66 16 100/58 L 93 L Weight Admit Weight 216 lb Weight 201 lb 4.8 oz I&O: 10/06/19 10/07/19 10/08/19 06:59 06:59 06:59 Intake Total 590 2340 0 Output Total 2400 2050 Balance -1810 290 0 Result Diagrams: 10/07/19 03:55 10/07/19 03:55 Additional Labs: Accuchecks 10/07/19 10/07/19 10/06/19 10:26 05:57 20:35 POC Glucose 140 H 110 130 H 10/06/19 16:46 POC Glucose 123 H Hospitalist ROS - Medication Medications: Active Medications Generic Name Dose Route Start Last Admin Trade Name Freq PRN Reason Stop Dose Admin Acetaminophen 1,000 mg 09/24/19 18:00 10/07/19 05:28 Tylenol PO Not Given Q6HR [facility] Amiodarone HCl 200 mg 09/22/19 09:00 10/07/19 08:22 Cordarone PO 200 mg DAILY MARIO Administration Aspirin 81 mg 09/25/19 09:00 10/07/19 08:22 Ecotrin PO 81 mg DAILY [facility] Administration Atorvastatin Calcium 80 mg 09/22/19 21:00 10/06/19 19:54 Lipitor PO 80 mg HS MARIO Administration Carvedilol 3.125 mg 09/22/19 08:00 10/07/19 08:21 Coreg PO 3.125 mg BID-WM MARIO Administration Cholecalciferol 2,000 units 10/06/19 09:00 10/07/19 08:21 Vitamin D3 PO 2,000 units DAILY [facility]IO Administration Docusate Sodium 100 mg 10/02/19 21:00 10/07/19 08:22 Colace PO 100 mg BID [facility] Administration Fenofibrate 48 mg 09/22/19 09:00 10/07/19 08:22 Tricor PO 48 mg DAILY [facility] Administration Gabapentin 300 mg 09/22/19 09:00 10/07/19 08:24 Neurontin PO 300 mg BID [facility] Administration Sodium Chloride 500 mls @ 100 mls/hr 10/06/19 18:15 10/07/19 04:38 Normal Saline 0.9% IV Not Given .Q5H [facility] Sodium Chloride 1,000 mls @ 50 mls/hr 10/06/19 23:15 10/07/19 00:06 Normal Saline 0.9% IV 1,000 mls .Q20H [facility] Administration Insulin Human Lispro 0 units 09/22/19 05:23 09/24/19 20:31 Humalog SC 2 unit .BEDTIME SLIDING SC PRN Administration Bedtime Correctional Scale Metformin HCl 500 mg 09/27/19 08:00 10/07/19 08:22 Glucophage PO 500 mg BID-WM [facility]IO Administration Pantoprazole Sodium 40 mg 09/25/19 09:00 10/07/19 08:21 Protonix PO 40 mg DAILY [facility] Administration Rivaroxaban 20 mg 10/06/19 09:00 10/07/19 08:21 Xarelto PO 20 mg 0900 MARIO Administration Sodium Chloride 10 ml 09/22/19 09:00 10/07/19 08:22 Flush - Normal Saline IVF 10 ml Q12HR [facility] Administration - Exam Eye: PERRL, anicteric sclera Heart: RRR, no murmur, no gallops, no rubs, normal peripheral pulses Respiratory: CTAB, no wheezes, no rales, no ronchi, normal chest expansion Gastrointestinal: soft, non-tender, non-distended, normal bowel sounds, no palpable masses Extremities: no cyanosis, no edema Hosp A/P (1) Adenocarcinoma, colon Code(s): C18.9 - MALIGNANT NEOPLASM OF COLON, UNSPECIFIED Status: Acute (2) Afib Code(s): I48.91 - UNSPECIFIED ATRIAL FIBRILLATION Status: Chronic Qualifiers: Atrial fibrillation type: unspecified Qualified Code(s): I48.91 - Unspecified atrial fibrillation (3) Coronary artery disease Code(s): I25.10 - ATHSCL HEART DISEASE OF [place] CORONARY ARTERY W/O ANG PCTRS Status: Chronic Qualifiers: Coronary Disease-Associated Artery/Lesion type: bypass graft (4) Diabetes mellitus Code(s): E11.9 - TYPE 2 DIABETES MELLITUS WITHOUT COMPLICATIONS Status: Chronic Qualifiers: Diabetes mellitus type: type 2 (5) GI bleed Code(s): K92.2 - GASTROINTESTINAL HEMORRHAGE, UNSPECIFIED Status: Resolved (6) Anemia Code(s): D64.9 - ANEMIA, UNSPECIFIED Status: Acute Qualifiers: Other causes of anemia: acute posthemorrhagic (7) ALKA (acute kidney injury) Code(s): N17.9 - ACUTE KIDNEY FAILURE, UNSPECIFIED Status: Resolved - Plan * Adenocarcinoma of the colon s/p resection- clinically stable * GI- bleed- likely an anastomotic bleed-he has been evaluated by surgery team, and there is no indication for any additional intervention * AFIB- his heart rate is stable,Xarelto has been discontinued due to recurrent rectal bleeding * Acute kidney injury- improving after fluids * Anemia- due to recent blood los- agree with transfusion * DM- blood glucose is stable * HTN- has been on the lower side- but improved- will continue to monitor * CAD- stable * Disposition per Cardiology
[2019-10-07] MEDS: Atorvastatin Calcium 40 MG TAB PO SCH (20:30)
[2019-10-08] MEDS: Acetaminophen 500 MG TAB PO SCH ×4 (00:34→12:43)
[2019-10-08 04:44] LABS: #Basophils 0.1 thou/uL (0.0-0.2); #Eosinphils 0.4 thou/uL (0.0-0.7); #Lymphocytes 1.4 thou/uL (1.20-3.40); #Monocytes 0.7 thou/uL (0.11-0.59); #Neutrophils 5.1 thou/uL (1.40-6.50); %Basophils 0.8 % (0.0-1.0); %Eosinophils 5.3 % (0.0-10.0); %Lymphocytes 18.4 % (21.0-51.0); %Monocytes 8.5 % (0.0-10.0); Hemoglobin 8.1 g/dL (14.0-18.0); Mean Corpuscular Hemoglobin 28.8 pg (27.0-31.0); Mean Corpuscular Volume 90.1 fL (78.0-98.0); Mean Platelet Volume 9.2 fL (7.4-10.4); Platelet Count 197 thou/uL (130-400); RBC Distribution Width 19.7 % (11.5-14.5); Red Blood Cell (RBC) Count 2.81 mill/uL (4.70-6.10); White Blood Cell (WBC) Count 7.6 thou/uL (4.8-10.8)
[2019-10-08 05:28] LABS: Anion Gap 12 mmol/L (10-20); BUN (Urea Nitrogen) 11 mg/dL (8.4-25.7); Calc. Creatinine Clearance 73 mL/min (70-130); Calcium 8.3 mg/dL (7.8-10.44); Carbon Dioxide 23 mmol/L (23-31); Chloride 106 mmol/L (98-107); Estimated GFR-MDRD 56; Glucose 103 mg/dL (80-115); Potassium 4.2 mmol/L (3.5-5.1); Sodium 137 mmol/L (136-145)
[2019-10-08] MEDS: Sodium Chloride 0.9% 1,000 ML IV SCH (09:53)
[2019-10-08] MEDS: Gabapentin 300 MG CAP PO SCH (09:54)
[2019-10-08] MEDS: Fenofibrate 48 MG TAB PO SCH (09:54)
[2019-10-08] MEDS: Aspirin 81 mg Enteric Coated Tablet PO SCH (09:54)
[2019-10-08] MEDS: metFORMIN 500 MG TAB PO SCH (09:54)
[2019-10-08] MEDS: Cholecalciferol 1,000 UNITS (25 MCG) TAB PO SCH (09:55)
[2019-10-08] MEDS: Rivaroxaban 10 MG TAB PO SCH (09:55)
[2019-10-08] MEDS: Docusate 100 MG CAP PO SCH (09:55)
[2019-10-08] MEDS: Carvedilol 3.125 MG TAB PO SCH (09:55)
[2019-10-08] MEDS: Amiodarone 200 MG TAB PO SCH (10:03)
--- NOTE | 2019-10-08 11:02 | PRG ---
DATE OF SERVICE: 10/08/2019 SUBJECTIVE: Mr. Yanez remains in his room on the telemetry floor. He is postoperative day #14 following laparoscopic low anterior section for bleeding rectal cancer. His hospitalization has been prolonged due to a series of nonsurgical issues. His urinary tract infection, arrhythmia issues, diarrhea, bleeding, and/or anemia associated with anticoagulation issues have all been addressed. Today, Mr. Yanez appears to continue to be stable. He feels well as he has ever since surgery. He denies pain. He is tolerating a regular diet. He has had a bowel movement over the last 24 hours, which he states is normal for him. PHYSICAL EXAMINATION: VITAL SIGNS: He is afebrile. Pulse is 59 to 70, blood pressure is 131/67. Physical examination is without change. LABORATORY DATA: His white blood cell count is 7.6, hemoglobin is 8.1 (up from 7.4 yesterday). Chemistry panel reveals normal electrolytes. His creatinine is down to 1.27. ASSESSMENT: He is doing well following his surgery. He appears to be stable from all standpoint for discharge today. He requires no pain medication other than Tylenol. I would like to see him back in my office in about a week for a followup visit. He was instructed to take his iron supplements when he is at home for continued resolution of his anemia. Job ID: [id number]
--- NOTE | 2019-10-08 12:42 | PDOC.HOSPP ---
- Subjective Encounter Date: 10/08/19 Encounter Time: 11:30 Subjective: " I feel great and am ready for home!" - Objective Vital Signs & Weight: Vital Signs (12 hours) Temp Pulse Resp BP BP Pulse Ox 10/08/19 08:00 98.4 F 59 L 18 131/67 96 10/08/19 04:43 97.9 F 70 16 105/56 L 92 L Weight Admit Weight 216 lb Weight 207 lb 14.4 oz I&O: 10/07/19 10/08/19 10/09/19 06:59 06:59 06:59 Intake Total 2340 2240 Output Total 0 2650 Balance 290 -410 Result Diagrams: 10/08/19 03:36 10/08/19 03:36 Additional Labs: Accuchecks 10/08/19 10/08/19 10/07/19 11:11 06:31 20:53 POC Glucose 151 H 123 H 142 H 10/07/19 16:56 POC Glucose 126 H EKG Reviewed by me: Yes Hospitalist ROS - Medication Medications: Active Medications Generic Name Dose Route Start Last Admin Trade Name Freq PRN Reason Stop Dose Admin Acetaminophen 1,000 mg 09/24/19 18:00 10/08/19 12:32 Tylenol PO 1,000 mg Q6HR [facility] Administration Amiodarone HCl 200 mg 09/22/19 09:00 10/08/19 10:03 Cordarone PO 200 mg DAILY [facility] Administration Aspirin 81 mg 09/25/19 09:00 10/08/19 09:54 Ecotrin PO 81 mg DAILY [facility] Administration Atorvastatin Calcium 80 mg 09/22/19 21:00 10/07/19 20:30 Lipitor PO 80 mg HS [facility]IO Administration Carvedilol 3.125 mg 09/22/19 08:00 10/08/19 09:55 Coreg PO 3.125 mg BID-WM MARIO Administration Cholecalciferol 2,000 units 10/06/19 09:00 10/08/19 09:55 Vitamin D3 PO 2,000 units DAILY MARIO Administration Docusate Sodium 100 mg 10/02/19 21:00 10/08/19 09:55 Colace PO 100 mg BID [facility] Administration Fenofibrate 48 mg 09/22/19 09:00 10/08/19 09:54 Tricor PO 48 mg DAILY [facility] Administration Gabapentin 300 mg 09/22/19 09:00 10/08/19 09:54 Neurontin PO 300 mg BID [facility]IO Administration Sodium Chloride 1,000 mls @ 50 mls/hr 10/06/19 23:15 10/08/19 09:53 Normal Saline 0.9% IV 1,000 mls .Q20H [facility] Administration Insulin Human Lispro 0 units 09/22/19 05:23 10/08/19 12:30 Humalog SC 2 unit .MODERATE SLIDING SC PRN Administration Moderate Correctional Scale Insulin Human Lispro 0 units 09/22/19 05:23 09/24/19 20:31 Humalog SC 2 unit .BEDTIME SLIDING SC PRN Administration Bedtime Correctional Scale Metformin HCl 500 mg 09/27/19 08:00 10/08/19 09:54 Glucophage PO 500 mg BID-WM [facility] Administration Pantoprazole Sodium 40 mg 09/25/19 09:00 10/08/19 09:54 Protonix PO 40 mg DAILY [facility]IO Administration Rivaroxaban 20 mg 10/06/19 09:00 10/08/19 09:55 Xarelto PO 20 mg 0900 MARIO Administration Sodium Chloride 10 ml 09/22/19 09:00 10/08/19 10:04 Flush - Normal Saline IVF Not Given Q12HR [facility]IO - Exam General Appearance: NAD, awake alert ENT: normocephalic atraumatic, moist mucosa Neck: supple, no lymphadenopathy Heart: RRR, no murmur, no gallops, no rubs Respiratory: CTAB, no wheezes, no rales, no ronchi Gastrointestinal: soft, non-tender, non-distended, normal bowel sounds Psychiatric: normal affect, normal behavior Hosp A/P (1) Adenocarcinoma, colon Code(s): C18.9 - MALIGNANT NEOPLASM OF COLON, UNSPECIFIED Status: Acute (2) Anemia Code(s): D64.9 - ANEMIA, UNSPECIFIED Status: Acute Qualifiers: Other causes of anemia: acute posthemorrhagic (3) Afib Code(s): I48.91 - UNSPECIFIED ATRIAL FIBRILLATION Status: Chronic Qualifiers: Atrial fibrillation type: unspecified Qualified Code(s): I48.91 - Unspecified atrial fibrillation (4) Coronary artery disease Code(s): I25.10 - ATHSCL HEART DISEASE OF [place] CORONARY ARTERY W/O ANG PCTRS Status: Chronic Qualifiers: Coronary Disease-Associated Artery/Lesion type: bypass graft (5) Diabetes mellitus Code(s): E11.9 - TYPE 2 DIABETES MELLITUS WITHOUT COMPLICATIONS Status: Chronic Qualifiers: Diabetes mellitus type: type 2 - Plan Patient clinically stable at this time. Both cardiology and surgery have cleared patient for discharge and he voices readiness to go. To follow up with both outpatient.
[2019-10-08 16:04] VITALS: BP 137/70; TEMP 98.6
--- NOTE | 2019-10-08 20:38 | DIS ---
DATE OF ADMISSION: 09/22/2019 DATE OF DISCHARGE: 10/08/2019 DISCHARGE DISPOSITION AND FOLLOWUP: The patient was discharged home. He was seen and examined on the day of discharge. Denies any new complaints. INPATIENT CONSULTS: Cardiology, Surgery, Gastroenterology. CLINICAL COURSE: The patient presented to the ER after having 5 times of cristian bleeding from his rectum at home. He had no history of bleeding or peptic ulcer or hemorrhoids. GI was consulted and his Xarelto was held. They completed EGD and colonoscopy and they discovered a mass. On 09/23, they did a left colon resection where they discovered he had invasive adenocarcinoma. Afterwards, he went into AFib, which is where Cardiology was consulted. On September 28, he was discovered to have a new GI bleed and also a thrombus was discovered in his left appendage. He did continue to have some on and off bleeding during his stay, but he was still needing the anticoagulation due to his cardiac clot. During his course, his blood pressure dropped and he needed to have some medication changes. He also ended up having a sigmoidoscopy where they cauterized some small areas. At that time, he was able to resume his Xarelto as the bleeding stopped from then on. Once he was cleared by GI, surgical, and Cardiology, he was able to be discharged. FINAL DIAGNOSES: Adenocarcinoma of the colon, anemia, atrial fibrillation, coronary artery disease, and diabetes mellitus. DISCHARGE MEDICATIONS: 1. Amiodarone 200 mg p.o. daily. 2. Aspirin 81 mg p.o. daily. 3. Atorvastatin 80 mg p.o. daily. 4. Carvedilol 3.125 mg p.o. b.i.d. 5. Vitamin D3 2000 units p.o. daily. 6. Vitamin B12 1000 mcg p.o. daily. 7. Fenofibrate 160 mg daily. 8. Ferrous sulfate 325 mg daily. 9. Lasix 40 mg p.o. daily to begin on October 09. 10. Gabapentin 300 mg p.o. t.i.d. 11. Lisinopril 5 mg p.o. daily once systolic blood pressure is continuously over 110. 12. Metformin 500 mg p.o. b.i.d. 13. Xarelto 20 mg p.o. daily. DISCHARGE INSTRUCTIONS: The patient is to take medications as prescribed and to follow up with his primary care doctor, Dr. Good, Dr. Peacock, and Dr. Hallman over the next 2 to 3 weeks. He is to monitor for any further GI bleed and to monitor his blood pressure at home. TIME SPENT: Total time coordinating the discharge of this patient was 25 minutes. Job ID: [id number]
--- NOTE | 2019-10-09 09:02 | PQF ---
CLINICAL DOCUMENTATION CLARIFICATION FORM: Dear : Qi Hemphill Date / Time: 10/08/09 09 Please exercise your independent, professional judgment in responding to the clarification form. Clinical indicators are provided on the bottom of this form for your review Please check appropriate box(s): [ ] Hypovolemic Shock [ ] Cardiogenic Shock [ ] Hemorrhagic Shock due to surgery [ ] Shock Unspecified [ ] Other diagnosis [x ] Unable to determine: please pass this query to rounding physicians, I have seen him only on admission. In addition, please specify: Present on Admission (POA): [ ] Yes [ ] No [ ] Unable to determine To be completed by CDI/Coding staff for physician review: Present Clinical Indicators - Signs / Symptoms / Labs Results and Location in Medical Record [ X] BUN 13, Creatinine 1.31; 1.45, GFR 54 Laboratory Chemistry 09/25 [ X] Severe decrease HH- Hgb 8.1 Hct 24.4 Laboratory Hematology 10/02 [ X] Hypotension BP 84/55, 108/59, 90/54, 127/53, 99/59, 108/58 Vital signs 10/02 [ X] Of note, a left atrial thrombus identified on [facility] Event note p1 09/28 Dr Dos Santos [ X] Lower has gastrointestinal bleeding, likely anastomotic related to his anticoagulant PN p1 09/30 Dr Good [ X] unexplained postoperative bleeding/oozing following his low anterior resection PN p1 10/01 Dr Hallman [ X] blood pressure is 99/59 apparently dropped his pressure in the 80s earlier today PN p1 10/02 Dr Good Present Risk Factors Results and Location in Medical Record [ X] 69 year-old Male DS p1 09/28 Dr Dos Santos [ X] Gastrointestinal bleeding DS p1 09/28 Dr Dos Santos [ X] Colon Adenocardinoma DS p1 09/28 Dr Dos Santos [ X] ALKA DS p1 09/28 Dr Dos Santos [ X] Systolic heart failure DS p1 09/28 Dr Dos Santos [ X] Anemia associated with GI bleeding DS p1 09/28 Dr Dos Santos [ X] s/p LAR Operative report 09/23 Dr Hallman [ X] Obesity Operative report 09/23 Dr Hallman [ X] HTN HP p1 09/21 Dr. Hemphill [ X] Afib HP p1 09/21 Dr. Hemphill [ X] Ischemic Cardiomyopathy HP p1 09/21 Dr. Hemphill Present Treatments Results and Location in Medical Record [ X] Blood/blood product transfusions- PRBC transfused Blood bank 10/01; 10/04; 10/06 [ X] Ferric Sodium Gluconate complex 250 mg MAR 10/01 [ X] Ferrous Sulfate 325 mg oral JUN 04 [ X] IVF Normal Saline 0.9% 1L JUN 04 [ X] Control of bleeding via colonoscopy Operative report 10/[address] Good [ X] CARMELA Operative report 09/23 Dr Hallman CDS/Liability Claims Manager Signature: Ashanti Hoffman Phone #: ext [phone] Date/Time: 10/09/19 0901 This is a permanent part of the Medical Record [facility]
--- NOTE | 2019-10-15 06:20 | PQF ---
CLINICAL DOCUMENTATION CLARIFICATION FORM: Dear : Franco Hallman Date / Time: 10/15/19 0619 Please exercise your independent, professional judgment in responding to the clarification form. Clinical indicators are provided on the bottom of this form for your review Please check appropriate box(s): [ x ] Hypovolemic Shock [ ] Cardiogenic Shock [ ] Hemorrhagic Shock due to surgery [ ] Shock Unspecified [ ] Hypotension only [ ] Other diagnosis [ ] Unable to determine In addition, please specify: Present on Admission (POA): [ ] Yes [ x] No [ ] Unable to determine Physician Signature: MWS Date/Time:10/16/19 For continuity of documentation, please document condition throughout progress notes and discharge summary. Thank You. To be completed by CDI/Coding staff for physician review: Present Clinical Indicators - Signs / Symptoms / Labs Results and Location in Medical Record [ X] BUN 13, Creatinine 1.31; 1.45, GFR 54 Laboratory Chemistry 09/25 [ X] Severe decrease HH- Hgb 8.1 Hct 24.4 Laboratory Hematology 10/02 [ X] Hypotension BP 84/55, 108/59, 90/54, 127/53, 99/59, 108/58 Vital signs 10/02 [ X] Of note, a left atrial thrombus identified on [facility] Event note p1 09/28 Dr Dos Santos [ X] Lower has gastrointestinal bleeding, likely anastomotic related to his anticoagulant PN p1 09/30 Dr Good [ X] unexplained postoperative bleeding/oozing following his low anterior resection PN p1 10/01 Dr Hallman [ X] blood pressure is 99/59 apparently dropped his pressure in the 80s earlier today PN p1 10/02 Dr Good Present Risk Factors Results and Location in Medical Record [ X] 69 year-old Male DS p1 09/28 Dr Dos Santos [ X] Gastrointestinal bleeding DS p1 09/28 Dr Dos Santos [ X] Colon Adenocardinoma DS p1 09/28 Dr Dos Santos [ X] ALKA DS p1 09/28 Dr Dos Santos [ X] Systolic heart failure DS p1 09/28 Dr Dos Santos [ X] Anemia associated with GI bleeding DS p1 09/28 Dr Dos Santos [ X] s/p LAR Operative report 09/23 Dr Hallman [ X] Obesity Operative report 09/23 Dr Hallman [ X] HTN HP p1 09/21 Dr. Hemphill [ X] Afib HP p1 09/21 Dr. Hemphill [ X] Ischemic Cardiomyopathy HP p1 09/21 Dr. Hemphill Present Treatments Results and Location in Medical Record [ X] Blood/blood product transfusions- PRBC transfused Blood bank 10/01; 10/04; 10/06 [ X] Ferric Sodium Gluconate complex 250 mg MAR 10/01 [ X] Ferrous Sulfate 325 mg oral JUN 04 [ X] IVF Normal Saline 0.9% 1L JUN 04 [ X] Control of bleeding via colonoscopy Operative report 10/[address] Good [ X] CARMELA Operative report 09/23 Dr Hallman CDS/[employer] Teacher Signature: Ashanti Puga Yasmin Phone #: ext [phone] Date/Time: 10/09/19618 This is a permanent part of the Medical Record [facility]
== END 2019-10-08 16:39 | disposition home or self-care (01) | DRG 329 ==
LOC: ERS 03:48 → T4-A 04:50 → 2NO 09-23 14:33
PROVIDERS: ADMIT Internal Medicine; ATTEND Internal Medicine
PROC: 0DBN8ZX Excision of Sigmoid Colon, Via Natural or Artificial Opening Endoscopic, Diagnostic (ICD-10-PCS; 2019-09-22)
PROC: 0DJ08ZZ Inspection of Upper Intestinal Tract, Via Natural or Artificial Opening Endoscopic (ICD-10-PCS; 2019-09-22)
PROC: 0DBP8ZZ Excision of Rectum, Via Natural or Artificial Opening Endoscopic (ICD-10-PCS; 2019-09-22)
PROC: 0DBN0ZZ Excision of Sigmoid Colon, Open Approach (ICD-10-PCS; principal; 2019-09-24)
PROC: 0DBP0ZZ Excision of Rectum, Open Approach (ICD-10-PCS; 2019-09-24)
PROC: B24BZZ4 Ultrasonography of Heart with Aorta, Transesophageal (ICD-10-PCS; 2019-09-29)
PROC: 30233N1 Transfusion of Nonautologous Red Blood Cells into Peripheral Vein, Percutaneous Approach (ICD-10-PCS; 2019-10-02)
PROC: 0W3P8ZZ Control Bleeding in Gastrointestinal Tract, Via Natural or Artificial Opening Endoscopic (ICD-10-PCS; 2019-10-02)
PROC: 0W3P8ZZ Control Bleeding in Gastrointestinal Tract, Via Natural or Artificial Opening Endoscopic (ICD-10-PCS; 2019-10-05)
DX: C18.7 Malignant neoplasm of sigmoid colon (principal); R57.1 Hypovolemic shock; I48.19 Other persistent atrial fibrillation; K92.1 Melena; D62 Acute posthemorrhagic anemia; Q43.8 Other specified congenital malformations of intestine; N17.9 Acute kidney failure, unspecified; N30.00 Acute cystitis without hematuria; I50.22 Chronic systolic (congestive) heart failure; C77.2 Secondary and unspecified malignant neoplasm of intra-abdominal lymph nodes; K91.840 Postprocedural hemorrhage of a digestive system organ or structure following a digestive system procedure; K63.3 Ulcer of intestine; I25.5 Ischemic cardiomyopathy; E78.5 Hyperlipidemia, unspecified; E11.9 Type 2 diabetes mellitus without complications; E78.00 Pure hypercholesterolemia, unspecified; I11.0 Hypertensive heart disease with heart failure; D12.8 Benign neoplasm of rectum; E66.9 Obesity, unspecified; I25.10 Atherosclerotic heart disease of native coronary artery without angina pectoris; I08.3 Combined rheumatic disorders of mitral, aortic and tricuspid valves; I70.0 Atherosclerosis of aorta; N20.0 Calculus of kidney; I51.3 Intracardiac thrombosis, not elsewhere classified; Y83.6 Removal of other organ (partial) (total) as the cause of abnormal reaction of the patient, or of later complication, without mention of misadventure at the time of the procedure; Z95.1 Presence of aortocoronary bypass graft; Z95.5 Presence of coronary angioplasty implant and graft; Z68.31 Body mass index [BMI] 31.0-31.9, adult; Z79.899 Other long term (current) drug therapy; Z79.01 Long term (current) use of anticoagulants; Z79.82 Long term (current) use of aspirin; Z79.84 Long term (current) use of oral hypoglycemic drugs
CPT/HCPCS: 36415; 36416; 36430; 71046; 74177; 76770; 80048; 80061; 81001; 82378; 83735; 84443; 85025; 85027; 86850; 86900; 86901; 87077; 87086; 87186; 87324; 87449; 88305; 88309; 88313; 88361; 92960; 93005; 93010; 93306; 93312; 99285; C9113; J0670; J0694; J0696; J1100; J1650; J1885; J1940; J2250; J2405; J2704; J2765; J2916; J3010; J3480; J3490; J7120; P9016; Q9967; S0020; S0028

== ENCOUNTER 2019-10-30 05:28 | Outpatient (CLI) | payer MEDICARE, OTHER ==
[2019-10-30 13:59] LABS: #Basophils 0.1 thou/uL (0.0-0.2); #Eosinphils 0.4 thou/uL (0.0-0.7); #Lymphocytes 1.6 thou/uL (1.20-3.40); #Monocytes 0.5 thou/uL (0.11-0.59); #Neutrophils 3.8 thou/uL (1.40-6.50); %Basophils 1.1 % (0.0-1.0); %Eosinophils 5.6 % (0.0-10.0); %Monocytes 8.3 % (0.0-10.0); %Neutrophils 59.9 % (42.0-75.0); Hemoglobin 10.5 g/dL (14.0-18.0); Mean Corpuscular HGB CONC 33.1 g/dL (32.0-36.0); Mean Corpuscular Hemoglobin 29.9 pg (27.0-31.0); Mean Corpuscular Volume 90.4 fL (78.0-98.0); Mean Platelet Volume 10.3 fL (7.4-10.4); Platelet Count 194 thou/uL (130-400); RBC Distribution Width 18.8 % (11.5-14.5); Red Blood Cell (RBC) Count 3.52 mill/uL (4.70-6.10); White Blood Cell (WBC) Count 6.3 thou/uL (4.8-10.8)
[2019-10-30 14:19] LABS: Anion Gap 14 mmol/L (10-20); BUN (Urea Nitrogen) 24 mg/dL (8.4-25.7); Calc. Creatinine Clearance 0 mL/min (70-130); Carbon Dioxide 24 mmol/L (23-31); Chloride 104 mmol/L (98-107); Estimated GFR-MDRD 52; Glucose 104 mg/dL (80-115); Potassium 4.3 mmol/L (3.5-5.1); Sodium 138 mmol/L (136-145)
[2019-10-31 14:41] LABS: SARS-CoV-2 MS2 Positive; SARS-CoV-2 N Gene Negative; SARS-CoV-2 S Gene Negative; SARS-CoV-2 by NAA Not Detected (NotDetected); SARS-CoV-2 orf1ab Negative
== END 2019-10-30 05:29 | disposition home or self-care (01) ==
LOC: LABBT 05:28
PROVIDERS: ATTEND Specialist
DX: Z01.818 Encounter for other preprocedural examination (principal); Z11.59 Encounter for screening for other viral diseases; C20 Malignant neoplasm of rectum
CPT/HCPCS: 80048; 85025; U0003; 87635; 93005; 93010

== ENCOUNTER 2019-11-03 07:57 | Day surgery (SDC) | payer MEDICARE ==
[2019-10-29 11:16] VITALS: BMI 32.5
[2019-11-03] MEDS ORDERED: Ketorolac Tromethamine 30 MG/ML VIAL ONE (08:18)
[2019-11-03] MEDS ORDERED: Acetaminophen 500 MG TAB ONE (08:18)
[2019-11-03] MEDS ORDERED: Lidocaine 1% w/Epinephrine 1:100K 20 ML VIAL ONE (10:10)
[2019-11-03] MEDS ORDERED: Bupivacaine 0.25% HCL 30 ML VIAL ONE (10:10)
[2019-11-03] MEDS ORDERED: Midazolam HCl 2 mg/2 ml Vial ONE (10:24)
[2019-11-03] MEDS ORDERED: Ketamine 50 MG/ML (10ML VIAL) ONE (10:25)
[2019-11-03] MEDS ORDERED: Lidocaine 1% PF 5 ML VIAL ONE (10:46)
[2019-11-03] MEDS ORDERED: PROPOFOL 200 MG/20 ML VIAL ONE (10:46)
--- NOTE | 2019-11-03 11:54 | RAD ---
EXAM: Single view of the chest HISTORY: Mediport placement. Evaluate for pneumothorax COMPARISON: 09/23/2019 FINDINGS: Single view of the chest shows an enlarged but stable cardiomediastinal silhouette. The pa tient is status post sternotomy. A right subclavian Mediport is seen with its tip in the superior vena cava. No pneumothorax is seen. There is no evidence of consolidation, mass, or pleural effusion. Degenerative changes are seen in the spine. IMPRESSION: 1. Stable cardiomegaly 2. No pneumothorax
--- NOTE | 2019-11-04 01:05 | OP ---
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 PROCEDURE PERFORMED: Placement of right subclavian standard-sized power compatible MediPort. ANESTHESIA: Total intravenous anesthesia with local using a mixture of 1% lidocaine with epinephrine as well as 0.25% Marcaine. INDICATIONS FOR PROCEDURE: The patient is a 69-year-old white male. He was recently diagnosed with a rectosigmoid cancer. He underwent surgical resection of this and surgery revealed a T3 N1 cancer with metastatic disease to lymph nodes. He was hospitalized for far longer than normal secondary to postoperative bleeding, probably related to his mandatory anticoagulation secondary to an intracardiac thrombus. He was seen by Oncology and chemotherapy was recommended. He presents today for MediPort placement. He is to begin chemotherapy today, therefore, plan is to leave this accessed. DESCRIPTION OF PROCEDURE: Informed consent was obtained. The patient was taken to the operating room where total intravenous anesthesia was obtained with the patient in supine position. Right periclavicular area was prepped with ChloraPrep and draped in sterile fashion. Local anesthetic was infiltrated and a large-gauge needle was passed under the clavicle in the subclavian vein. Guidewire was passed through the needle and fluoroscopically confirmed to enter the superior vena cava. Additional local anesthetic was infiltrated and transverse incision was created based on needle insertion site. A subcutaneous pocket was dissected inferiorly. Introducer dilator was passed over the guidewire under fluoroscopic guidance. The guidewire and dilator were removed, and the catheter was passed through the introducer. The tip of the catheter was positioned at the atriocaval junction and the catheter was trimmed to the appropriate length and secured to the locking hub of the MediPort. The port was then placed in the subcutaneous pocket where it was secured to the pectoral fascia with 2 interrupted sutures of 3-0 Prolene. The incision was then closed in layers with 3-0 and 4-0 Monocryl. Additional local anesthetic was infiltrated. The port was cannulated with a Panda needle and it aspirated blood freely and was flushed with heparinized saline. Dermabond was placed externally on the skin incision. There were no complications. Blood loss was negligible. The patient tolerated the procedure well and was taken to recovery room in stable condition. FINDINGS: I placed a standard size MediPort in the right subclavian vein uneventfully. This is a power compatible port. Fluoroscopy was used throughout the procedure. There was no blood loss and no complications. The port was accessed at the end of the procedure and flushed through the access needle. A sterile occlusive dressing was applied over the access needle. The patient was taken to recovery room in stable condition. Job ID: [id number]
== END 2019-11-03 12:50 | disposition home or self-care (01) ==
LOC: SDC 07:57
PROVIDERS: ATTEND Specialist
PROC: 0JH60WZ Insertion of Totally Implantable Vascular Access Device into Chest Subcutaneous Tissue and Fascia, Open Approach (ICD-10-PCS; principal; 2019-11-03)
PROC: 02HV33Z Insertion of Infusion Device into Superior Vena Cava, Percutaneous Approach (ICD-10-PCS; 2019-11-03)
PROC: B518ZZA Fluoroscopy of Superior Vena Cava, Guidance (ICD-10-PCS; 2019-11-03)
DX: C20 Malignant neoplasm of rectum (principal); C77.9 Secondary and unspecified malignant neoplasm of lymph node, unspecified; E11.9 Type 2 diabetes mellitus without complications; I51.9 Heart disease, unspecified; Z79.01 Long term (current) use of anticoagulants; Z79.02 Long term (current) use of antithrombotics/antiplatelets; Z79.82 Long term (current) use of aspirin; Z79.84 Long term (current) use of oral hypoglycemic drugs; Z79.899 Other long term (current) drug therapy; Z95.1 Presence of aortocoronary bypass graft
CPT/HCPCS: 36561; 71045; C1788; J0690; J1642; J1885; J2250; J2704; S0020

== ENCOUNTER 2020-07-06 08:41 | Outpatient (CLI) | payer MEDICARE | END 2020-07-06 08:42 | disposition home or self-care (01) | LOC: BICRAD 08:41 | PROVIDERS: ATTEND Internal Medicine Cardiovascular Disease | DX: I48.91 Unspecified atrial fibrillation (principal); E78.00 Pure hypercholesterolemia, unspecified | CPT/HCPCS: 36415; 71046; 80053; 80061; 84443 ==

== ENCOUNTER 2021-01-09 08:19 | Outpatient (CLI) | payer MEDICARE ==
[2021-01-09] MEDS ORDERED: Iopamidol 370 76% 100 ML VIAL ONE (10:46)
[2021-01-09] MEDS ORDERED: Iopamidol 370 76% 50 ML VIAL FS ONE (10:46)
== END 2021-01-09 08:20 | disposition home or self-care (01) ==
LOC: CT 08:19
PROVIDERS: ATTEND Internal Medicine Hematology & Oncology
DX: C18.7 Malignant neoplasm of sigmoid colon (principal); I70.0 Atherosclerosis of aorta; K40.90 Unilateral inguinal hernia, without obstruction or gangrene, not specified as recurrent; I25.10 Atherosclerotic heart disease of native coronary artery without angina pectoris; R59.0 Localized enlarged lymph nodes; K76.9 Liver disease, unspecified; I51.7 Cardiomegaly; K59.00 Constipation, unspecified; J98.4 Other disorders of lung
CPT/HCPCS: 71260; 74177; 82565

== ENCOUNTER 2021-01-11 06:38 | Day surgery (SDC) | payer MEDICARE ==
[2021-01-10 11:26] VITALS: BMI 33.4
[2021-01-11] MEDS ORDERED: PROPOFOL 200 MG/20 ML VIAL ONE (09:14)
[2021-01-11] MEDS ORDERED: Sodium Chloride 0.9% 10 ML ONE (15:12)
== END 2021-01-11 16:50 | disposition home or self-care (01) ==
LOC: SDC 06:38
PROVIDERS: ATTEND Internal Medicine Gastroenterology
PROC: 0DJD8ZZ Inspection of Lower Intestinal Tract, Via Natural or Artificial Opening Endoscopic (ICD-10-PCS; principal; 2021-01-11)
DX: Z08 Encounter for follow-up examination after completed treatment for malignant neoplasm (principal); I48.91 Unspecified atrial fibrillation; I11.0 Hypertensive heart disease with heart failure; I50.9 Heart failure, unspecified; I25.10 Atherosclerotic heart disease of native coronary artery without angina pectoris; Z85.038 Personal history of other malignant neoplasm of large intestine; Z79.82 Long term (current) use of aspirin; Z79.84 Long term (current) use of oral hypoglycemic drugs; Z79.899 Other long term (current) drug therapy; Z90.49 Acquired absence of other specified parts of digestive tract; Z95.1 Presence of aortocoronary bypass graft; Z95.5 Presence of coronary angioplasty implant and graft
CPT/HCPCS: J1642; J2704

== ENCOUNTER 2021-01-19 11:37 | Outpatient (CLI) | payer MEDICARE | END 2021-01-19 11:38 | disposition home or self-care (01) | LOC: PET 11:37 | PROVIDERS: ATTEND Internal Medicine Hematology & Oncology | DX: C18.7 Malignant neoplasm of sigmoid colon (principal); C78.7 Secondary malignant neoplasm of liver and intrahepatic bile duct | CPT/HCPCS: 78815; A9552 ==

== ENCOUNTER 2021-03-06 11:36 | Inpatient (IN) | payer MEDICARE ==
[2021-03-06 12:39] LABS: #Basophils 0.1 thou/uL (0.0-0.2); #Eosinphils 0.3 thou/uL (0.0-0.7); #Lymphocytes 0.9 thou/uL (1.20-3.40); #Monocytes 0.5 thou/uL (0.11-0.59); #Neutrophils 2.8 thou/uL (1.40-6.50); %Basophils 1.2 % (0.0-1.0); %Eosinophils 6.3 % (0.0-10.0); %Lymphocytes 20.2 % (21.0-51.0); %Monocytes 10.3 % (0.0-10.0); Hemoglobin 11.1 g/dL (14.0-18.0); Mean Corpuscular HGB CONC 33.8 g/dL (32.0-36.0); Mean Corpuscular Hemoglobin 33.6 pg (27.0-31.0); Mean Corpuscular Volume 99.5 fL (78.0-98.0); Mean Platelet Volume 8.8 fL (7.4-10.4); Platelet Count 183 thou/uL (130-400); RBC Distribution Width 13.1 % (11.5-14.5); White Blood Cell (WBC) Count 4.4 thou/uL (4.8-10.8)
[2021-03-06 13:04] LABS: ALT (SGPT) 10 U/L (8-55); AST (SGOT) 13 U/L (5-34); Albumin 3.8 g/dL (3.4-4.8); Alkaline Phosphatase 24 U/L (40-110); Anion Gap 13 mmol/L (10-20); BUN (Urea Nitrogen) 25 mg/dL (8.4-25.7); Bilirubin, Total 0.7 mg/dL (0.2-1.2); Calc. Creatinine Clearance 0 mL/min (70-130); Calcium 8.7 mg/dL (7.8-10.44); Carbon Dioxide 24 mmol/L (23-31); Chloride 105 mmol/L (98-107); Glucose 98 mg/dL (80-115); Potassium 4.1 mmol/L (3.5-5.1); Protein, Total 6.8 g/dL (5.8-8.1); Sodium 138 mmol/L (136-145)
[2021-03-06] MEDS ORDERED: Sodium Chloride 0.9% 1,000 ML IV SCH (13:15)
[2021-03-06] MEDS ORDERED: hydrALAZINE 20 MG/ML VIAL SLOW IVP PRN (13:50)
[2021-03-06] MEDS ORDERED: Senokot S 8.6-50 MG TAB PO PRN (13:50)
[2021-03-06] MEDS ORDERED: Guaifenesin DM 100-10/5 ML UDCUP PO PRN (13:50)
[2021-03-06] MEDS ORDERED: Dextrose 5% in Water 1,000 ML IV PRN (13:50)
[2021-03-06] MEDS ORDERED: HumaLOG 300 UNITS/3 ML VIAL SC PRN ×2 (13:50)
[2021-03-06] MEDS ORDERED: Loperamide HCl 2 MG CAP PO PRN (13:50)
[2021-03-06] MEDS ORDERED: Acetaminophen 325 MG TAB PO PRN (13:50)
[2021-03-06] MEDS ORDERED: Sodium Chloride 0.65% Nasal 44 ML BOT EA NARE PRN (13:50)
[2021-03-06] MEDS ORDERED: Bisacodyl 10 MG SUPP PR PRN (13:50)
[2021-03-06] MEDS ORDERED: Hydrocerin (Eucerin) Cream 120 gm Jar TOP PRN (13:50)
[2021-03-06] MEDS ORDERED: HYDROcodone/Acetaminophen 5/325 mg Tablet PO PRN (13:50)
[2021-03-06] MEDS ORDERED: Ondansetron ODT 4 MG TAB PO PRN (13:50)
[2021-03-06] MEDS ORDERED: Calcium Carbonate 500 MG ChewTAB PO PRN (13:50)
[2021-03-06] MEDS ORDERED: Dextrose 50% Abboject 50 ML SYRINGE SLOW IVP PRN (13:50)
[2021-03-06] MEDS ORDERED: Ondansetron PF 4 MG/2 ML Vial IVP PRN (13:50)
[2021-03-06] MEDS ORDERED: Loratadine 10 MG TAB PO PRN (13:50)
[2021-03-06] MEDS ORDERED: Artificial Tear Sol 15 ML BOT EA EYE PRN (13:50)
[2021-03-06] MEDS ORDERED: Nitroglycerin 0.4 MG TAB (25 Tab Bottle) SL PRN (13:50)
[2021-03-06] MEDS ORDERED: MULTIVITAMINS IVPB SCH (14:00)
[2021-03-06] MEDS ORDERED: [UNRECOGNIZED DRUG - OTHER] IVPB SCH (14:00)
[2021-03-06] MEDS ORDERED: FOLIC ACID IVPB SCH (14:00)
[2021-03-06] MEDS ORDERED: THIAMINE HCL IVPB SCH (14:00)
[2021-03-06 16:52] VITALS: BMI 35.5
[2021-03-06] MEDS ORDERED: FLU VACC QS2021-22(65YR UP)/PF 240 MCG/0.7 ML SYRINGE IM ONE (17:15)
[2021-03-06 17:19] LABS: Troponin I 0.011 ng/mL (< 0.028)
[2021-03-06] MEDS: Sodium Chloride 0.9% 1,000 ML IV SCH (17:21)
[2021-03-06 20:06] LABS: Troponin I Less than 0.010 ng/mL (< 0.028)
[2021-03-06] MEDS: Fenofibrate Nanocrystallized 145 MG TAB PO SCH (20:25)
[2021-03-06] MEDS: Carvedilol 3.125 MG TAB PO SCH (20:25)
[2021-03-06] MEDS: Atorvastatin Calcium 40 MG TAB PO SCH (20:25)
[2021-03-06] MEDS: Sacubitril 49 MG/Valsartan 51 MG TABLET PO SCH (20:25)
[2021-03-06] MEDS: Cholecalciferol 1,000 UNITS (25 MCG) TAB PO SCH (20:25)
[2021-03-06 20:40] LABS: SARS-CoV-2 NAA Rapid Test Not Detected (NotDetected)
[2021-03-07] MEDS ORDERED: HOLD HYPOGLYCEMIC MEDS AM OF CATH FS SCH (02:30)
[2021-03-07 05:36] LABS: #Basophils 0.1 thou/uL (0.0-0.2); #Eosinphils 0.3 thou/uL (0.0-0.7); #Lymphocytes 1.2 thou/uL (1.20-3.40); #Monocytes 0.6 thou/uL (0.11-0.59); #Neutrophils 3.6 thou/uL (1.40-6.50); %Basophils 1.7 % (0.0-1.0); %Eosinophils 4.7 % (0.0-10.0); %Lymphocytes 20.4 % (21.0-51.0); %Monocytes 10.6 % (0.0-10.0); %Neutrophils 62.6 % (42.0-75.0); Hemoglobin 12.6 g/dL (14.0-18.0); Mean Corpuscular HGB CONC 33.3 g/dL (32.0-36.0); Mean Corpuscular Hemoglobin 33.1 pg (27.0-31.0); Mean Corpuscular Volume 99.4 fL (78.0-98.0); Mean Platelet Volume 8.4 fL (7.4-10.4); Platelet Count 203 thou/uL (130-400); Red Blood Cell (RBC) Count 3.81 mill/uL (4.70-6.10); White Blood Cell (WBC) Count 5.7 thou/uL (4.8-10.8)
[2021-03-07 05:54] LABS: Anion Gap 15 mmol/L (10-20); BUN (Urea Nitrogen) 26 mg/dL (8.4-25.7); Calc. Creatinine Clearance 58 mL/min (70-130); Calcium 9.5 mg/dL (7.8-10.44); Carbon Dioxide 24 mmol/L (23-31); Chloride 104 mmol/L (98-107); Glucose 104 mg/dL (80-115); Potassium 4.6 mmol/L (3.5-5.1); Sodium 138 mmol/L (136-145)
[2021-03-07] MEDS ORDERED: Sodium Chloride 0.9% 1,000 ML IV SCH ×2 (06:00→08:48)
[2021-03-07] MEDS: Sodium Chloride 0.9% 1,000 ML IV SCH ×2 (06:07→15:16)
[2021-03-07] MEDS ORDERED: Heparin 10,000 UNITS/ 10 ML VIAL ONE ×2 (06:31→07:45)
[2021-03-07] MEDS ORDERED: Lidocaine 1% (PF) 30 ML VIAL ONE (06:31)
[2021-03-07] MEDS ORDERED: Fentanyl 100 MCG/2 ML VIAL ONE (06:56)
[2021-03-07] MEDS ORDERED: Midazolam HCl 2 mg/2 ml Vial ONE (06:56)
[2021-03-07] MEDS ORDERED: Atropine Sulfate 1 mg/10 ml Syringe ONE (07:15)
[2021-03-07] MEDS ORDERED: Clopidogrel Bisulfate 300 MG TAB ONE (07:45)
[2021-03-07] MEDS ORDERED: Nitroglycerin 100MG/250ML BOT 250 ML ONE (07:45)
[2021-03-07] MEDS ORDERED: Morphine 2 MG/ML VIAL SLOW IVP PRN (08:47)
[2021-03-07] MEDS ORDERED: Morphine 4 MG/ML VIAL SLOW IVP PRN (08:52)
[2021-03-07] MEDS ORDERED: Ezetimibe 10 MG TAB PO SCH (09:00)
[2021-03-07] MEDS ORDERED: Iopamidol 370 76% 100 ML VIAL ONE (13:11)
[2021-03-07] MEDS: Famotidine 20 MG TAB PO SCH (15:17)
[2021-03-07] MEDS: Carvedilol 3.125 MG TAB PO SCH ×2 (15:17→20:35)
[2021-03-07] MEDS: Sacubitril 49 MG/Valsartan 51 MG TABLET PO SCH ×2 (15:17→20:35)
[2021-03-07] MEDS: Amiodarone 200 MG TAB PO SCH (15:17)
[2021-03-07] MEDS: Fenofibrate Nanocrystallized 145 MG TAB PO SCH (20:35)
[2021-03-07] MEDS: Atorvastatin Calcium 40 MG TAB PO SCH (20:35)
[2021-03-07] MEDS: Cholecalciferol 1,000 UNITS (25 MCG) TAB PO SCH (20:35)
[2021-03-07] MEDS ORDERED: DC ENOXAPARIN NIGHT BEFORE CATH FS SCH (22:00)
[2021-03-08] MEDS: Sodium Chloride 0.9% 1,000 ML IV SCH ×2 (04:52→17:20)
[2021-03-08 05:11] LABS: #Eosinphils 0.2 thou/uL (0.0-0.7); #Lymphocytes 0.4 thou/uL (1.20-3.40); #Monocytes 0.6 thou/uL (0.11-0.59); #Neutrophils 3.6 thou/uL (1.40-6.50); %Basophils 0.8 % (0.0-1.0); %Eosinophils 3.9 % (0.0-10.0); %Lymphocytes 8.9 % (21.0-51.0); %Monocytes 11.8 % (0.0-10.0); %Neutrophils 74.8 % (42.0-75.0); Hemoglobin 11.5 g/dL (14.0-18.0); Mean Corpuscular HGB CONC 32.5 g/dL (32.0-36.0); Mean Corpuscular Hemoglobin 32.4 pg (27.0-31.0); Mean Corpuscular Volume 99.5 fL (78.0-98.0); Mean Platelet Volume 8.7 fL (7.4-10.4); Platelet Count 169 thou/uL (130-400); RBC Distribution Width 12.9 % (11.5-14.5); Red Blood Cell (RBC) Count 3.54 mill/uL (4.70-6.10); White Blood Cell (WBC) Count 4.8 thou/uL (4.8-10.8)
[2021-03-08 05:47] LABS: ALT (SGPT) 12 U/L (8-55); AST (SGOT) 14 U/L (5-34); Albumin 3.5 g/dL (3.4-4.8); Alkaline Phosphatase 23 U/L (40-110); Anion Gap 10 mmol/L (10-20); BUN (Urea Nitrogen) 22 mg/dL (8.4-25.7); Calc. Creatinine Clearance 63 mL/min (70-130); Carbon Dioxide 25 mmol/L (23-31); Chloride 108 mmol/L (98-107); Globulin 2.7 g/dL (2.4-3.5); Glucose 106 mg/dL (80-115); Potassium 4.1 mmol/L (3.5-5.1); Protein, Total 6.2 g/dL (5.8-8.1); Sodium 139 mmol/L (136-145)
[2021-03-08] MEDS ORDERED: Furosemide 20 MG TAB PO SCH (08:45)
[2021-03-08] MEDS: Carvedilol 3.125 MG TAB PO SCH ×2 (08:54→20:04)
[2021-03-08] MEDS: Amiodarone 200 MG TAB PO SCH (08:54)
[2021-03-08] MEDS: Famotidine 20 MG TAB PO SCH (08:54)
[2021-03-08] MEDS: Aspirin 81 mg Enteric Coated Tablet PO SCH (08:58)
[2021-03-08] MEDS: Sacubitril 49 MG/Valsartan 51 MG TABLET PO SCH (08:59)
[2021-03-08] MEDS ORDERED: Furosemide 40 MG TAB PO SCH (09:00)
[2021-03-08] MEDS: Fenofibrate Nanocrystallized 145 MG TAB PO SCH (20:04)
[2021-03-08] MEDS: Cholecalciferol 1,000 UNITS (25 MCG) TAB PO SCH (20:04)
[2021-03-08] MEDS: Atorvastatin Calcium 40 MG TAB PO SCH (20:04)
[2021-03-09] MEDS ORDERED: Furosemide 40 MG TAB PO SCH (07:30)
[2021-03-09] MEDS: Sodium Chloride 0.9% 1,000 ML IV SCH (07:56)
[2021-03-09] MEDS: Carvedilol 3.125 MG TAB PO SCH (07:57)
[2021-03-09] MEDS: Amiodarone 200 MG TAB PO SCH (07:57)
[2021-03-09] MEDS: metFORMIN 500 MG TAB PO SCH ×2 (07:57→17:31)
[2021-03-09] MEDS: Famotidine 20 MG TAB PO SCH (07:57)
[2021-03-09] MEDS: Aspirin 81 mg Enteric Coated Tablet PO SCH (07:57)
[2021-03-09 09:33] LABS: Anion Gap 11 mmol/L (10-20); BUN (Urea Nitrogen) 20 mg/dL (8.4-25.7); Calc. Creatinine Clearance 58 mL/min (70-130); Calcium 8.9 mg/dL (7.8-10.44); Carbon Dioxide 25 mmol/L (23-31); Chloride 107 mmol/L (98-107); Glucose 169 mg/dL (80-115); Potassium 4.2 mmol/L (3.5-5.1); Sodium 139 mmol/L (136-145)
[2021-03-09 16:49] VITALS: BP 121/67; TEMP 97.8
== END 2021-03-09 18:00 | disposition home or self-care (01) | DRG 287 ==
LOC: ERS 11:36 → 2SW 13:40 → OBSVTOIN 03-08 11:16
PROVIDERS: ADMIT Internal Medicine; ATTEND Internal Medicine
PROC: 4A023N7 Measurement of Cardiac Sampling and Pressure, Left Heart, Percutaneous Approach (ICD-10-PCS; principal; 2021-03-07)
PROC: B2111ZZ Fluoroscopy of Multiple Coronary Arteries using Low Osmolar Contrast (ICD-10-PCS; 2021-03-07)
PROC: B2131ZZ Fluoroscopy of Multiple Coronary Artery Bypass Grafts using Low Osmolar Contrast (ICD-10-PCS; 2021-03-07)
PROC: 02JA3ZZ Inspection of Heart, Percutaneous Approach (ICD-10-PCS; 2021-03-07)
DX: I25.810 Atherosclerosis of coronary artery bypass graft(s) without angina pectoris (principal); I48.19 Other persistent atrial fibrillation; N17.9 Acute kidney failure, unspecified; I50.22 Chronic systolic (congestive) heart failure; C18.9 Malignant neoplasm of colon, unspecified; C78.7 Secondary malignant neoplasm of liver and intrahepatic bile duct; I13.0 Hypertensive heart and chronic kidney disease with heart failure and stage 1 through stage 4 chronic kidney disease, or unspecified chronic kidney disease; I25.10 Atherosclerotic heart disease of native coronary artery without angina pectoris; E78.5 Hyperlipidemia, unspecified; E78.00 Pure hypercholesterolemia, unspecified; N18.9 Chronic kidney disease, unspecified; I34.0 Nonrheumatic mitral (valve) insufficiency; Z20.822 Contact with and (suspected) exposure to COVID-19; I44.7 Left bundle-branch block, unspecified; E11.22 Type 2 diabetes mellitus with diabetic chronic kidney disease; I25.5 Ischemic cardiomyopathy; Z95.1 Presence of aortocoronary bypass graft; Z79.82 Long term (current) use of aspirin; Z79.899 Other long term (current) drug therapy; Z85.038 Personal history of other malignant neoplasm of large intestine; Z95.810 Presence of automatic (implantable) cardiac defibrillator
CPT/HCPCS: 36415; 36416; 80048; 80053; 84484; 85025; 85347; 92920; 93005; 93010; 93455; 97139; 99152; 99153; G0378; J0461; J1644; J2001; J2250; J3010; J3411; J3475; J7050; Q9967; U0002